=== PATIENT | female | born 1925 | race Caucasian/White ===

== ENCOUNTER 2017-02-20 13:21 | Inpatient (IN) | payer BC, MEDICARE ==
[~2017-02-20] VITALS: Ht 162.6 cm; Wt 73.8 kg
[~2017-02-20 13:21] MED LIST: /AMLO25TA PO; /QUET25TA PO; /WARF25TA OR; /WARF5TA OR; ACTI300C PO; ADV250INH INH; ALLO100T OR; AMLO5TAB PO; ANUS2.5C2 TOP; ATEN50TA2 OR; BENI20TA11 OR; CEPH2CAP PO; COZA50TA18 OR; FERR324T5 OR; FURO20TA2 OR; KENOLOG TOP; LASI20TA PO; LEVO PO; LEVO100T4 PO; LEVO88TA3 PO; LORA0.5T PO; LORA1TAB PO; MIRA3350 PO; PAIN325T OR; PERC5TAB8 OR; POLY IRON PO; SERO1TAB3 PO; SILV40CR TOP; TENO1TAB4 PO; TRAM50TA2 PO; TYLE325T5 PO; TYLENOL #3 OR; URSO300C2 PO; URSO300C3 PO; VITA500T3 PO; VITAD1000T PO; XARE15TA PO; [UNRECOGNIZED DRUG - OTHER]; [UNRECOGNIZED DRUG - OTHER] PO
[2017-02-20] MEDS ORDERED: SYMB16INH INH (13:38)
[2017-02-20] MEDS ORDERED: DRIS50002 PO (13:38)
[2017-02-20] MEDS ORDERED: CLAR5TAB PO (13:38)
[2017-02-20] MEDS ORDERED: XARE15TA PO (13:38)
[2017-02-20] MEDS ORDERED: ALPRAZolam 0.25 MG TAB PO ONE (14:15)
--- NOTE | 2017-02-20 14:49 | REP ---
Chest, semi upright AP and lateral views: Comparisons are 02/05/2017, 03/25/2012, and 12/13/2010. There is chronic cardiomegaly. There is diffuse interstitial coarsening, increased from all prior studies, compatible with pulmonary vascular engorgement. There are no pleural effusions. There is an old fracture of the surgical neck of the left humerus. Impression: Pulmonary vascular engorgement, acute. Chronic cardiomegaly. Signed by Kwabena Smith MD 02/20/2017 02:39 P
[2017-02-20 14:51] LABS: BASO # 0.1 K/mm3 (0.0-0.2); BASO % 0.9 % (0.0-1.0); EOS # 0.2 K/mm3 (0.0-0.50); EOS % 1.9 % (0.0-3.0); LARGE UNSTAINED CELL # 0.1 K/mm3 (0.0-0.4); LARGE UNSTAINED CELL % 1.6 % (0.0-4.0); LYMPH # 1.4 K/mm3 (1.5-4.5); LYMPH % 15.4 % (24.0-44.0); MEAN CORPUSCULAR HEMOGLOBIN 21.8 pg (27.0-33.0); MEAN CORPUSCULAR HGB CONC 27.2 g/dl (32.0-36.5); MEAN CORPUSCULAR VOLUME 80.1 fl (80.0-96.0); MONO # 0.6 K/mm3 (0.0-0.8); MONO % 7.7 % (0.0-5.0); NEUTROPHILS # 5.8 K/mm3 (1.8-7.7); NEUTROPHILS % 72.4 % (36.0-66.0); PLATELET COUNT, AUTOMATED 238 k/mm3 (150-450)
[2017-02-20 15:00] LABS: ADD MORPHOLOGY? YES
[2017-02-20 15:13] LABS: ANION GAP 10 MEQ/L (8-16); BLOOD UREA NITROGEN 37 MG/DL (7-18); CALCIUM LEVEL 9.7 MG/DL (8.8-10.2); CARBON DIOXIDE LEVEL 20 MEQ/L (21-32); CHLORIDE LEVEL 110 MEQ/L (98-107); CREATININE FOR GFR 1.45 MG/DL (0.55-1.02); GLOMERULAR FILTRATION RATE 36.2 (>32); GLUCOSE, FASTING 106 MG/DL (83-110); POTASSIUM SERUM 4.3 MEQ/L (3.5-5.1); SODIUM LEVEL 140 MEQ/L (136-145)
[2017-02-20 15:33] LABS: ANISOCYTOSIS 2+; HYPOCHROMASIA 2+; POLYCHROMASIA 1+
[2017-02-20 15:34] LABS: MICROCYTOSIS 1+
[2017-02-20] MEDS ORDERED: PANTOPRAZOLE 40MG INJ (PROTONIX) (C9113) IV ONE (16:00)
[2017-02-20] MEDS: PANTOPRAZOLE SODIUM 40 MG in D5W MINI-BAG PLUS 50 ML IV SCH ×5 (16:19→22:34)
[2017-02-20] MEDS ORDERED: NS 1,000 ML IV SCH (16:36)
[2017-02-20] MEDS ORDERED: ONDANSETRON 4MG/2ML VIAL (J2405) IV PRN (16:45)
[2017-02-20 17:02] LABS: INR 2.48
[2017-02-20] MEDS ORDERED: DESL5TAB11 SL (17:02)
[2017-02-20] MEDS ORDERED: VITA100066 PO (17:02)
[2017-02-20] MEDS ORDERED: FURO40TA2 PO (17:02)
[2017-02-20] MEDS ORDERED: GASTROGRAFIN SOLUTION 30ML (Q9963) PO ONE ×2 (17:05→17:35)
[2017-02-20] MEDS ORDERED: AMLO5TAB2 PO (17:09)
[2017-02-20] MEDS ORDERED: diphenhydrAMINE 25 MG CAP PO ONE (20:30)
[2017-02-20] MEDS ORDERED: ACETAMINOPHEN TAB 650MG DOSE (2X325MG) PO ONE (20:30)
[2017-02-20] MEDS ORDERED: FUROSEMIDE 20 MG/2 ML VIAL (J1940) IV ONE (20:30)
[2017-02-20] MEDS: SYMBICORT 160/4.5MCG INHALER 6GM INH SCH (21:00)
--- NOTE | 2017-02-20 21:00 | REPUSA ---
CLINICAL HISTORY: GI bleed, rule out colonic mass TECHNIQUE: CT of the abdomen and pelvis was performed without intravenous contrast by obtaining serge guous CT axial slices from level of the heart to the proximal femoral diaphyses. Multiplanar reformat s were obtained in the coronal and sagittal projections. COMPARISON: None FINDINGS : LOWER CHEST: The lung bases demonstrate small bilateral effusions with subpleural atelectasis. No ple ural or pericardial effusion is seen. LIVER: The liver is normal in size and contour. BILIARY SYSTEM: No intrahepatic biliary ductal dilatation is seen. The common duct is normal in calib er. Gallbladder is physiologically distended with calcified stones, without wall thickening or perich olecystic stranding. No calcified biliary calculi are identified. PANCREAS: The pancreas is normal in size, contour and density. No suspicious cystic lesion or ductal dilatation. SPLEEN: Normal in size with no suspicious cystic lesion. ADRENALS: The adrenal glands are unremarkable. KIDNEYS/URETERS: Bilateral renal atrophy with cortical scarring. No stones or hydroureteronephrosis. URINARY BLADDER: The urinary bladder is unremarkable without calcified stone, wall thickening or dive rticula seen. UTERUS/ADNEXA: Absent. AORTA AND ILIAC ARTERIES: No aneurysmal dilatation of the aorta or iliac arteries is seen. LYMPH NODES: No enlarged adenopathy. GASTROINTESTINAL: Small hiatal hernia is noted with soft tissue thickening at the GE junction on axia l axial images 27-29. Scattered colonic diverticula noted without peridiverticular stranding. Remaini ng stomach, duodenum, and bowel normal in caliber. PERITONEUM/RETROPERITONEUM: No ascites or suspicious fluid collection, extraluminal air, or suspiciou s mass. ABDOMINAL/PELVIC WALL: No hernia is identified. OSSEOUS STRUCTURES/SOFT TISSUES: No suspicious osseous lesion, acute fracture, or soft tissue abnorma lity. Multilevel mild endplate degenerative sclerotic changes of the thoracic and L-spine. IMPRESSION : 1. Small hiatal hernia with soft tissue thickening at the GE junction. Appearance is nonspecific as t his may represent benign mucosal fold however follow-up endoscopy is recommended to exclude neoplasm. Stool filled rectal dilatation noted without evidence of proximal obstruction or stercoral colitis. 2. Cholelithiasis without evidence of acute cholecystitis. 3. Small bilateral effusions.
[2017-02-20] MEDS ORDERED: PHYTONADIONE 5 MG TAB PO ONE (21:15)
[2017-02-20] MEDS ORDERED: DEXTROSE 50% 50 ML SYRINGE IV PRN (21:30)
[2017-02-20] MEDS ORDERED: GLUCOSE 4 GM CHEW TABLET PO PRN (21:30)
[2017-02-20] MEDS ORDERED: GLUCAGON FOR INJ 1 MG VIAL (J1610) SC PRN (21:30)
--- NOTE | 2017-02-20 23:46 | HPE ---
DATE OF ADMISSION: 02/20/2017 PRIMARY CARE PHYSICIAN: GUIDO Amaro INPATIENT HOSPITALIST ATTENDING: Nilda Li MD CHIEF COMPLAINT: Black tarry stools, shortness of breath. HISTORY OF PRESENTING ILLNESS: This is an 89-year-old female with history of hypothyroidism, nerve decompression surgery left foot and leg, left knee arthroplasty, left knee replacement, hypertension, anxiety, atrial fibrillation on chronic Eliquis, asthma, stress test 09/01/2010 ejection fraction (EF) of 50-60%, follows with Dr. Collins, cardiac catheterization 09/15/2010 no coronary artery disease (CAD), left ventricular fraction is 65%, cataract extraction 1996 and 2003, hip fracture and surgery 1956, shoulder fracture, no surgery, April 2007, knee replacement 2010, presents to emergency room with 3 day history of black tarry stools with worsening shortness of breath for the past 4-5 days, especially with exertion. Patient's caregiver noted that patient has been increasingly short of breath without chest pain, pressure or tightness, palpitations, lightheadedness, near syncope, lower extremity weakness, no falls. Caregiver called her primary care physician who advised her to come in tomorrow. Patient complained of some dizziness and lightheadedness today and decided to come to the emergency room (ER) for further evaluation. She otherwise denies any fever, chills, cough, nausea, vomiting, diarrhea. She complains of black tarry stools without abdominal pain. Prior history of gastrointestinal (GI) bleed in the past, was seen previously by Dr. Casey, general surgeon, no interventions performed at that time in 2013. Patient denies any nonsteroidal anti-inflammatory drug (NSAID) use. Denies any ibuprofen or Naprosyn in the past. PAST MEDICAL HISTORY: 1. Atrial fibrillation. 2. Hypertension. 3. Anxiety. 4. Osteoarthritis. 5. Left knee replacement. 6. Nerve decompression surgery of the foot and ankle on the left leg. 7. Hypothyroidism. 8. Asthma. 9. Chronic kidney disease stage III, baseline creatinine 1.14. FAMILY HISTORY: Noncontributory due to age. Cardiac catheterization 2009, no coronary artery disease (CAD), normal left ventricular ejection fraction (LVEF) of 65%, follows with Dr. Collins. ALLERGIES: SULFA, PENICILLIN, NITROFURANTOIN, LEXAPRO, PAXIL, AMOXICILLIN. SURGICAL HISTORY: 1. Cataract extraction - April 1997. 2. Cataract extraction - September 2004. 3. Hip fracture with replacement - October 1957. 4. Shoulder fracture, no surgery - April 2007. 5. Knee replacement - November 2010. 6. Cardiac catheterization - August 2010. 7. Lower left molar removed - September 2016. SOCIAL HISTORY: Never , no children. Has a niece in town. Former smoker, quit smoking over 10 years ago. Occasional drink, once every month. Lives at [facility] as of 2014. No recreational drug use. Single. High school graduate. Retired. REVIEW OF SYSTEMS: As per history of present illness (HPI). 12-point system otherwise negative. PHYSICAL EXAMINATION: Temperature 98, pulse 76, respiratory rate 16, blood pressure 171/81, 94% on 2 liters nasal cannula. Generally, patient is awake, alert, oriented to person, time, and place, answering questions appropriately. She has a slight pallor. No icterus. No jaundice. Dry mucous membranes. Poor dentition, missing teeth. No jugular venous distention, thyromegaly, cervical lymphadenopathy. Lungs are clear to auscultation. No wheezing, rales, or rhonchi. Heart S1, S2, regular rate and rhythm. Abdomen soft, nontender, nondistended. Positive bowel sounds four quadrants. No hepatosplenomegaly. Extremities no cyanosis or clubbing. White count 8, hemoglobin 5.9, hematocrit 21, platelet count 238. Sodium 140, potassium 4.3, chloride 110, bicarbonate 20, BUN 37, creatinine 1.45, glucose 106, previous creatinine 1.14. Cardiac markers: Troponin less than 0.02, CK-MB 4.8, relative index 8.42, total CK 57. IMAGING STUDIES: Chest xray: Chronic cardiomegaly, pulmonary vascular engorgement. CT abdomen and pelvis: Small bilateral effusions with subpleural atelectasis, small hiatal hernia with soft tissue thickening at the gastroesophageal (GE) junction, scattered colonic diverticula without stranding. No ascites or suspicious fluid collection. Cholelithiasis without evidence of acute cholecystitis. Stool filled rectal dilation noted without evidence of proximal obstruction. No stercoral colitis. Followup endoscopy to exclude neoplasm for the soft tissue thickening at the GE junction. ASSESSMENT AND PLAN: This is an 89-year-old female with history of atrial fibrillation on chronic anticoagulation, hypothyroidism, hypertension, asthma, follows with Dr. Collins, previous stress test 2009 shows ejection fraction (EF) 50-60%, cardiac catheterization ejection fraction (EF) of 65%, cataract extractions, on chronic Xarelto, chronic kidney disease stage III, presents to the emergency room with symptomatic anemia and black tarry stools, prior history of bleeding with no previous intervention in 2013. Patient will be admitted as an inpatient for 2 midnights, assigned to hospitalist, Dr. Nilda Li, for the following issues: 1. Black tarry stools/gastrointestinal (GI) bleed with symptomatic anemia. Patient will be kept nothing by mouth. Dr. Piotr Sun has been consulted. Patient is still making decision whether to proceed with colonoscopy. She is currently medically stable with adequate blood pressure, therefore will transfuse 4 units of red blood cells for hemoglobin of 5 due to severe symptomatic anemia. Lasix IV. Monitor for electrolyte abnormalities and worsening creatinine. 2. Symptomatic anemia. Transfuse and check hemoglobin and hematocrit after transfusion. Lasix to prevent fluid overload. Check hemoglobin and hematocrit every 6 hours. Protonix IV for now and Carafate for now. Gastrointestinal (GI) consult, Dr. Sun, has been informed. Patient to make a decision whether to proceed with colonoscopy. 3. Acute on chronic renal failure. Baseline creatinine is 1.4 to 1.2. Currently at 1.45. Avoid nephrotoxins. Monitor breathing status once patient has received red blood cell transfusion. Lasix times two doses during blood transfusion. 4. Hypertension, uncontrolled. Resume home medications, atenolol and Norvasc. 5. Hypothyroidism. Continue with Synthroid. 6. History of atrial fibrillation, on chronic Xarelto. Will hold Xarelto in light of active gastrointestinal (GI) bleed and symptomatic anemia. Continue rate control medication with atenolol. 7. Vitamin D deficiency. Hold off on supplementation until patient resumes oral intake. 8. Former smoker. As needed, resume patient's Symbicort. 9. Deep venous thrombosis (DVT) prophylaxis with compression stockings. MTDD
[2017-02-21] MEDS: QUEtiapine FUMARATE 25 MG TAB PO SCH ×4 (00:17→22:24)
[2017-02-21] MEDS: amLODIPine 5 MG TAB PO SCH ×3 (00:17→22:25)
[2017-02-21] MEDS: URSODIOL 300 MG CAP PO SCH ×3 (01:08→22:25)
[2017-02-21] MEDS: PANTOPRAZOLE SODIUM 40 MG in D5W MINI-BAG PLUS 50 ML IV SCH ×5 (03:36→22:51)
[2017-02-21 04:27] VITALS: BP 153/69
[2017-02-21 05:41] LABS: INR 1.63
[2017-02-21 05:57] LABS: ANION GAP 9 MEQ/L (8-16); BLOOD UREA NITROGEN 34 MG/DL (7-18); CALCIUM LEVEL 9.2 MG/DL (8.8-10.2); CARBON DIOXIDE LEVEL 19 MEQ/L (21-32); CHLORIDE LEVEL 109 MEQ/L (98-107); CREATININE FOR GFR 1.44 MG/DL (0.55-1.02); GLOMERULAR FILTRATION RATE 36.5 (>32); GLUCOSE, FASTING 83 MG/DL (83-110); POTASSIUM SERUM 3.8 MEQ/L (3.5-5.1); SODIUM LEVEL 137 MEQ/L (136-145)
[2017-02-21] MEDS: ACETAMINOPHEN TAB 650MG DOSE (2X325MG) PO PRN ×2 (06:08→17:12)
[2017-02-21] MEDS: LEVOTHYROXINE 0.088 MG TAB (88 MCG) PO SCH (06:08)
[2017-02-21 07:35] VITALS: BP 136/76
--- NOTE | 2017-02-21 08:45 | REP ---
Chest AP and lateral views, patient sitting: Comparisons are 02/20/2017, 02/05/2017, 03/23/2012 and 12/13/2010. There is chronic cardiomegaly, unchanged. There is diffuse interstitial coarsening similar to 02/20/2017 but not present prior to that compatible with pulmonary vascular congestion. No iker interstitial infiltrates are identified. However, on the lateral view there are small bilateral pleural effusions in the posterior sulci. These appear to be new from 02/20/2017. There is an old fracture in the surgical neck of the left humerus. There is osteoarthritis of the right shoulder. There is marked kyphosis. There is wedge-shaped compression deformity of a mid thoracic vertebral body, unchanged from 02/05 2017. There is no lateral view on 03/25/2012. This was not present 12/13/2010. Signed by Kwabena Smith MD 02/21/2017 08:36 A
[2017-02-21] MEDS: SYMBICORT 160/4.5MCG INHALER 6GM INH SCH ×2 (09:08→21:29)
[2017-02-21] MEDS: VITAMIN D 1,000 INTERNATIONAL UNITS TABLET PO SCH (09:25)
[2017-02-21] MEDS: ATENOLOL 50 MG TAB PO SCH (09:25)
[2017-02-21] MEDS ORDERED: FUROSEMIDE 40 MG/4 ML VIAL (J1940) IV ONE (11:00)
[2017-02-21 12:00] VITALS: BP 152/71
[2017-02-21 16:00] VITALS: BP 147/71
--- NOTE | 2017-02-21 16:47 | IPNPDOC ---
Subjective Date Seen The patient was seen on 02/21/17. Subjective Chief Complaint/HPI The patient is a 89-year-old female admitted with a reason for visit of Gi Bleed. Events since last encounter First encounter. Patient is anxious about the possibilities of EGD and the prognosis of the findings. Patient denies chest pain, syncope, and palpitations. Patient states that she has felt lightheaded and dizzy for 5 days. General: Reports: Fatigue, Normal Appetite, Denies: Chills, Malaise, Night Sweats Eyes: Denies: Vision change ENT: Denies: Head Aches Skin: Reports: Bruising (Bilateral upper extremities), Denies: Rash Pulmonary: Denies: Cough, Dyspnea Cardiovascular: Reports: Edema (Bilateral lower extremities), Denies: Chest Pain, Palpitations Gastrointestinal: Reports: Melena (3 days), Denies: Abdominal Pain, Constipation, Diarrhea, Nausea, Vomiting Genitourinary: Denies: Hematuria Musculoskeletal: Reports: Arm Pain (IV sites) Neurological: Denies: Weakness Psych: Reports: Anxiety Objective Physical Examination General Exam: Positive: Alert, Moderate Distress Eye Exam: Positive: EOMI ENT Exam: Positive: Atraumatic Neck Exam: Positive: +2 carotid pulse wo bruit Chest Exam: Positive: Clear to auscultation, Normal air movement Heart Exam: Positive: Rate Normal, Negative: Gallops, Murmurs, Rubs Abdomen Exam: Positive: Mass (Suprapubic), Normal bowel sounds, Soft Extremity Exam: Positive: Tenderness, Negative: Edema Skin Exam: Negative: Rash Neuro Exam: Positive: Normal Tone Psych Exam: Positive: Anxiety Assessment /Plan Assessment 89 year old female who presents with an upper GI bleed Problems (1) Upper GI bleed Status: Acute Response to Treatment: Improving Discussed With: Patient Problem Specific Plan: Consult Specialist Problem Text: Dr. Sun has been consulted. CT scan showed a small hiatal hernia with gastroesophageal thickening. EGD is recommended to rule out neoplasm or ongoing bleed. Hemoglobin was 5.7 on admission and improved to 8.4 after 2 transfusions. (2) Anemia Status: Acute Response to Treatment: Improving Discussed With: Patient Problem Text: Most likely due to upper gastrointestinal bleed due to 3 day history of black tarry stools and lightheadedness. Will monitor hemoglobin and hematocrit to determine the need for more transfusions. (3) Dyspnea Status: Acute Response to Treatment: Improving Problem Text: Likely due to fluid overload. A small amount of pleural fluid was seen on chest xray. Will give one dose of lasix. (4) Chronic kidney disease, stage 3 Status: Chronic Response to Treatment: Stable (5) HTN (hypertension) Status: Chronic Response to Treatment: Improving Problem Text: Continue home dose of Norvasc (6) Chronic atrial fibrillation Status: Chronic Response to Treatment: Stable (7) Hypothyroidism Status: Chronic Response to Treatment: Stable Problem Text: Continue on home dose of levothyroxine (8) Anxiety Status: Acute Problem Text: Patient was given one dose of Xanax (9) Primary biliary cirrhosis Status: Chronic Problem Text: History obtained from past medical record. Continue on home dose of ursodiol. (10) Asthma Status: Chronic Response to Treatment: Stable Problem Text: Continue home dosage of Symbacort. Plan/VTE VTE Prophylaxis Ordered?: No VTE Exclusion Pharmacological: Active Bleeding Plan Patient seen and examined at this time she appears visibly anxious she is oriented to place but does not believe that she is bleeding and she would like to go home risk and benefits of staying in the hospital obtaining an EGD monitoring her for stabilization versus the risks of continued bleeding and potential were outlined at length we did discuss signing out AMA specifically the patient is undecided if she wishes to proceed with an EGD would like speak with Dr. Sun before making any final decision. VS, I&O, 24H, Fishbone Vital Signs/I&O Vital Signs Date Time Temp Pulse Resp B/P Pulse Ox O2 Delivery O2 Flow Rate FiO2 02/21/17 09:25 84 136/76 02/21/17 08:00 Room Air 02/21/17 07:35 98.2 22 97 2.0 I&O- Last 24 Hours up to 6 AM 02/21/17 06:00 Intake Total 0 ml Output Total 875 ml Balance -875 ml Laboratory Data 24H LABS Laboratory Tests 2 02/20/17 14:31: Anion Gap 10, Anisocytosis 2+, White Blood Count 8.0, Red Blood Count 2.71L, Hemoglobin 5.9*L, Hematocrit 21.7L, Mean Corpuscular Volume 80.1, Mean Corpuscular Hemoglobin 21.8L, Mean Corpuscular Hemoglobin Concent 27.2L, Red Cell Distribution Width 16.0H, Platelet Count 238, Neutrophils (%) (Auto) 72.4H , Lymphocytes (%) (Auto) 15.4L, Monocytes (%) (Auto) 7.7H, Eosinophils (%) (Auto ) 1.9, Basophils (%) (Auto) 0.9, Neutrophils # (Auto) 5.8, Lymphocytes # (Auto) 1.4L, Monocytes # (Auto) 0.6, Eosinophils # (Auto) 0.2, Basophils # (Auto) 0.1, Blood Urea Nitrogen 37H, Creatinine 1.45H, Sodium Level 140, Potassium Level 4.3 , Chloride Level 110H, Carbon Dioxide Level 20L, Calcium Level 9.7, Total Creatine Kinase 57, Creatine Kinase MB 4.8H, Creatine Kinase MB Relative Index 8.42H, Glomerular Filtration Rate 36.2, Hypochromasia 2+, Large Unclassified Cells # 0.1, Large Unclassified Cells % 1.6, Microcytosis 1+, Platelet Estimate NORMAL, Polychromasia 1+, Thyroid Stimulating Hormone (TSH) 3.680, Troponin I < 0.02 02/20/17 15:40: Activated Partial Thromboplast Time 39.0H, Prothromb Time International Ratio 2.48, Prothrombin Time 26.9H 02/20/17 20:42: B-Type Natriuretic Peptide 651H 02/20/17 20:49: Total Creatine Kinase 59, Creatine Kinase MB 4.2H, Creatine Kinase MB Relative Index 7.11H, Troponin I < 0.02 02/21/17 05:15: Anion Gap 9, Blood Urea Nitrogen 34H, Creatinine 1.44H, Sodium Level 137, Potassium Level 3.8, Chloride Level 109H, Carbon Dioxide Level 19L, Calcium Level 9.2, Total Creatine Kinase 108#, Creatine Kinase MB 4.3H, Creatine Kinase MB Relative Index 3.98, Glomerular Filtration Rate 36.5, Prothromb Time International Ratio 1.63, Prothrombin Time 19.4H, Troponin I < 0.02 CBC/BMP Laboratory Tests 02/20/17 14:31 Calcium Level 9.7, Total Creatine Kinase 57, Red Blood Count 2.71 L, Mean Corpuscular Volume 80.1, Mean Corpuscular Hemoglobin 21.8 L, Mean Corpuscular Hemoglobin Concent 27.2 L, Red Cell Distribution Width 16.0 H, Neutrophils (%) ( Auto) 72.4 H, Lymphocytes (%) (Auto) 15.4 L, Monocytes (%) (Auto) 7.7 H, Eosinophils (%) (Auto) 1.9, Basophils (%) (Auto) 0.9, Neutrophils # (Auto) 5.8, Lymphocytes # (Auto) 1.4 L, Monocytes # (Auto) 0.6, Eosinophils # (Auto) 0.2, Basophils # (Auto) 0.1 02/20/17 20:49 02/21/17 02:56 02/21/17 05:15 Calcium Level 9.2, Total Creatine Kinase 108 # GME ATTESTATION GME ATTESTATION My preceptor for this patient encounter was physically present in the building during the encounter and was fully available. As needed, all aspects of the patient interview, examination, medical decision making process, and medical care plan development were reviewed and approved by the preceptor. Preceptor is aware and concurs with the plan as stated in the body of this note and will attest to such by his/her cosignature. CHANO ARITA DO Feb 21, 2017 11:03 COOPER ANG MD Feb 23, 2017 13:18
--- NOTE | 2017-02-21 18:25 | ECGEPIP ---
Stationary ECG Study [facility] - ED Test Date: 2017-02-20 Pat Name: SHILPA TINSLEY Department: Room: - Gender: F Laundry Assistant: kit : [id number] Requested By: Thee Vasquez Order Number: [id number] Reading MD: Thee Mcdonald Measurements Intervals [place] Rate: 70 P: IA: 0 QRS: -14 QRSD: 164 T: 133 QT: 457 QTc: 493 Interpretive Statements ATRIAL FIBRILLATION WITH ABERRANT CONDUCTION OR VENTRICULAR PREMATURE COMPLEXES LEFT BUNDLE BRANCH BLOCK NO PRIORS Electronically Signed On 02-21-2017 18:25:30 EDT by Thee Mcdonald
[2017-02-21 20:52] VITALS: BP 139/70
[2017-02-21] MEDS ORDERED: NORTRIPTYLINE 10 MG CAP PO ONE (21:00)
--- NOTE | 2017-02-21 22:42 | ECHO ---
DATE OF PROCEDURE: 02/21/2017 REFERRING PHYSICIAN: Kim Chang MD INDICATION: Dyspnea. HEIGHT: 163 cm WEIGHT: 77 kg 2D MEASUREMENTS: Aortic root: 2.9 cm Left atrium: 5.2 cm Ventricular septum: 1.20 cm Posterior wall: 1.17 cm Left ventricle diastole: 5.2 cm LVOT: 1.7 cm Inferior vena cava: 2.1 cm DOPPLER MEASUREMENTS: Aortic valve velocity: 174 cm/s LVOT velocity: 79.9 cm/s LVOT VTI: 18.0 cm Mild mitral regurgitation. No mitral valve stenosis. Moderate tricuspid regurgitation. Estimated right ventricle systolic pressure estimated to be 61 mmHg assuming a right atrial pressure of 10 mmHg. Mild pulmonic regurgitation. MITRAL ANNULAR TISSUE DOPPLER: E prime septal: 7.0 cm/s E prime lateral: 8.9 cm/s DESCRIPTION: Rhythm was irregularly irregular suggestive of atrial fibrillation. This was a moderately technically difficult echocardiogram. No pericardial effusion. This is a 2D, M-mode, color flow Doppler and pulse wave Doppler examination that included mitral annular tissue Doppler. CONCLUSIONS: 1. Suggestive of severe elevation of estimated right ventricle systolic pressure (61 mmHg). Normal right ventricle size and systolic function. Mild right ventricle hypertrophy by visual assessment. At least mild right atrial dilation by visual assessment. Inferior vena cava plethora. Suggestive of central venous pressure of at least 10 mmHg. 2. Paradoxical septal motion. Normal left ventricle (LV) wall motion and wall thickening elsewhere. Normal overall LV systolic function. Left ventricular ejection fraction (LVEF) of 60% by visual estimate. Unable to assess left ventricle (LV) diastolic function in the setting of atrial fibrillation. 3. Severe left atrial dilatation. 4. Moderate aortic valve sclerosis of a three-cuspid aortic valve. No aortic stenosis or regurgitation. 5. Moderate mitral annular calcification. Mild mitral regurgitation. No mitral stenosis.
[2017-02-21 23:59] VITALS: BP 140/70
[2017-02-22] MEDS: PANTOPRAZOLE SODIUM 40 MG in D5W MINI-BAG PLUS 50 ML IV SCH ×4 (03:02→18:45)
[2017-02-22 04:45] VITALS: BP 169/74
[2017-02-22 05:28] LABS: CALCIUM LEVEL 9.2 MG/DL (8.8-10.2); CREATININE FOR GFR 1.7 MG/DL (0.55-1.02); GLOMERULAR FILTRATION RATE 30.1 (>32); INR 1.35; POTASSIUM SERUM 3.9 MEQ/L (3.5-5.1)
[2017-02-22] MEDS: LEVOTHYROXINE 0.088 MG TAB (88 MCG) PO SCH (06:00)
[2017-02-22 07:20] VITALS: BP 163/72
[2017-02-22] MEDS: SYMBICORT 160/4.5MCG INHALER 6GM INH SCH ×2 (07:25→21:00)
[2017-02-22] MEDS ORDERED: FUROSEMIDE 40 MG/4 ML VIAL (J1940) IV ONE (08:30)
[2017-02-22] MEDS: ATENOLOL 50 MG TAB PO SCH (09:00)
[2017-02-22] MEDS: amLODIPine 5 MG TAB PO SCH ×2 (09:00→22:40)
[2017-02-22] MEDS: URSODIOL 300 MG CAP PO SCH ×2 (09:00→22:39)
[2017-02-22] MEDS: QUEtiapine FUMARATE 25 MG TAB PO SCH ×3 (09:00→22:40)
[2017-02-22] MEDS: VITAMIN D 1,000 INTERNATIONAL UNITS TABLET PO SCH (09:00)
[2017-02-22] MEDS ORDERED: LORazepam 2 MG/ML VIAL (J2060) IV PRN (11:30)
[2017-02-22] MEDS ORDERED: LORazepam 2 MG/ML VIAL (J2060) As Ordered ONE (11:48)
[2017-02-22] MEDS: LORazepam 2 MG/ML VIAL (J2060) IM PRN ×2 (11:54→21:27)
--- NOTE | 2017-02-22 11:58 | IPNPDOC ---
Subjective Date Seen The patient was seen on 02/22/17. Subjective Chief Complaint/HPI The patient is a 89-year-old female admitted with a reason for visit of Gi Bleed. Events since last encounter Patient has developed altered mental status since last night. She had a bowel movement on the floor this morning and is combative with the nurses trying to clean her. She refuses to be examined. She has no complaints. Patient is refusing to take her medications. General: Reports: Normal Appetite, Denies: Chills, Fatigue, Night Sweats Eyes: Denies: Vision change ENT: Denies: Epistaxis, Head Aches Skin: Reports: Bruising, Denies: Rash Pulmonary: Denies: Cough, Dyspnea Cardiovascular: Denies: Chest Pain, Edema, Palpitations Gastrointestinal: Denies: Abdominal Pain, Constipation, Diarrhea, Melena, Nausea, Vomiting Genitourinary: Denies: Dysuria, Hematuria Musculoskeletal: Denies: Arm Pain Neurological: Reports: Confusion (Patient is not oriented to person, place, or date. ), Denies: Numbness, Weakness Psych: Reports: Memory Issues, Other Psych (Patient is suspicous of the medical staff calling them "actors"), Denies: Thoughts of Self Harm Objective Physical Examination General Exam: Positive: Alert, Moderate Distress, Negative: Cooperative Eye Exam: Positive: EOMI Extremity Exam: Positive: Tenderness Neuro Exam: Positive: Normal Tone Psych Exam: Positive: Anxiety, Negative: Oriented x 3 Other physical findings Physical examination limited due to patient refusal. Assessment /Plan Assessment 89 year old female with a suspected GI bleed and altered mental status. Problems (1) Upper GI bleed Status: Acute Response to Treatment: Stable Discussed With: Patient Problem Specific Plan: Consult Specialist Problem Text: GI has been consulted, awaiting their recommendations. Stool occult blood is positive. CT scan showed a small hiatal hernia with gastroesophageal thickening. EGD is recommended to rule out neoplasm or ongoing bleed. Hemoglobin was 5.7 on admission and improved to 8.4 after 2 transfusions. Today her hemoglobin is 8.2. (2) Altered mental state Onset Date: ~ 02/22/2017 Status: Acute Response to Treatment: Progressing Discussed With: Nurse, Patient Problem Specific Plan: Monitor Clinically Problem Text: Will check CBC, CMP, UA and culture, TSH, B12, LFTs, and check for syphilis. Will also send for a CT scan of the head. in order to rule out medical causes of her altered mental status. Patient refused scheduled dose of Seroquel this morning. (3) KODI (acute kidney injury) Status: Acute Problem Text: Worsening renal function, acute on chronic kidney injury. Will give one dose of lasix and continue to follow renal function tomorrow. (4) Anemia Status: Acute Response to Treatment: Controlled Discussed With: Patient Problem Text: Most likely due to upper gastrointestinal bleed due to recent history of black tarry stools and lightheadedness. Will monitor hemoglobin and hematocrit to determine the need for more transfusions. Since the hemoglobin is about the same as yesterday, I suspect a chronic slow bleed in the gastrointestinal system. (5) Dyspnea Status: Acute Response to Treatment: Stable Discussed With: Patient Problem Text: Likely due to fluid overload. (6) Chronic kidney disease, stage 3 Status: Chronic Response to Treatment: Stable (7) HTN (hypertension) Status: Chronic Response to Treatment: Stable Problem Text: Continue home dose of Norvasc (8) Chronic atrial fibrillation Status: Chronic Response to Treatment: Stable (9) Hypothyroidism Status: Chronic Response to Treatment: Stable Problem Text: Continue on home dose of levothyroxine (10) Anxiety Status: Acute Response to Treatment: Improving Problem Text: Patient denies being anxious, but she does exhibit symptoms more consistent with suspicion, delirium, combativeness, and overall will not cooperate with physical exam and refuses to answer any questions. (11) Primary biliary cirrhosis Status: Chronic Problem Text: History obtained from past medical record. Continue on home dose of ursodiol. (12) Asthma Status: Chronic Response to Treatment: Stable Problem Text: Continue home dosage of Symbicort. Plan/VTE VTE Prophylaxis Ordered?: No VTE Exclusion Pharmacological: Active Bleeding VS, I&O, 24H, Fishbone Vital Signs/I&O Vital Signs Date Time Temp Pulse Resp B/P Pulse Ox O2 Delivery O2 Flow Rate FiO2 02/22/17 07:20 96.0 75 20 163/72 98 Room Air 02/21/17 07:35 2.0 I&O- Last 24 Hours up to 6 AM 02/22/17 06:00 Intake Total 365 ml Output Total 2000 ml Balance -1635 ml Laboratory Data 24H LABS Laboratory Tests 2 02/21/17 11:34: Bedside Glucose (Misc Panel) 100 02/21/17 17:16: Bedside Glucose (Misc Panel) 109 02/22/17 00:07: Bedside Glucose (Misc Panel) 102 02/22/17 04:51: Anion Gap 12, B-Type Natriuretic Peptide 641H, Blood Urea Nitrogen 33H, Creatinine 1.70H, Sodium Level 139, Potassium Level 3.9, Chloride Level 108H, Carbon Dioxide Level 19L, Calcium Level 9.2, Glomerular Filtration Rate 30.1L, Prothromb Time International Ratio 1.35, Prothrombin Time 16.8H CBC/BMP Laboratory Tests 02/21/17 11:54 02/21/17 17:41 02/21/17 23:54 02/22/17 04:51 Calcium Level 9.2 Microbiology Microbiology 02/22/17 Stool Occult Blood (SADI) - Final, Complete CHANO ARITA DO Feb 22, 2017 11:21
[2017-02-22 14:02] LABS: ALBUMIN/GLOBULIN RATIO 0.88 (1.00-1.93); BILIRUBIN,DIRECT 0.3 MG/DL (0.0-0.2); BILIRUBIN,TOTAL 1.4 MG/DL (0.2-1.0); TOTAL PROTEIN 6.4 GM/DL (6.4-8.2)
[2017-02-22 14:19] LABS: MEAN CORPUSCULAR HEMOGLOBIN 23.9 pg (27.0-33.0); MEAN CORPUSCULAR HGB CONC 29.4 g/dl (32.0-36.5); MEAN CORPUSCULAR VOLUME 81.3 fl (80.0-96.0); RED CELL DISTRIBUTION WIDTH 16.2 % (11.5-14.5); WHITE BLOOD COUNT 11.5 K/mm3 (4.0-10.0)
[2017-02-22] MEDS ORDERED: LORazepam 2 MG/ML VIAL (J2060) IM ONE (14:30)
[2017-02-22 17:34] VITALS: BP 140/67
[2017-02-22 20:00] VITALS: BP 159/95
--- NOTE | 2017-02-22 20:43 | ECGEPIP ---
Stationary ECG Study [facility] Test Date: 2017-02-22 Pat Name: SHILPA TINSLEY Department: Room: [place] [address] Gender: F Nib Assembler: GISELA : [id number] Requested By: COOPER ANG Order Number: [id number] Reading MD: Juan Francisco Gonzalez Measurements Intervals [place] Rate: 107 P: [place]: 0 QRS: 7 QRSD: 148 T: 133 QT: 363 QTc: 486 Interpretive Statements Considerable baseline artifact Suspected underlying atrial fibrillation with slightly rapid ventricular response Left bundle branch block Isolated PVC Slightly faster rate than 02/20/17. Electronically Signed On 02-22-2017 20:43:50 EDT by Juan Francisco Gonzalez
[2017-02-22] MEDS: CIPROFLOXACIN 400 MG in APPROPRIATE DILUENT 1 EA IV SCH (22:18)
[2017-02-23] VITALS: BP_SYST 136; BP_SYST 138; BP_DIAS 105; BP_DIAS 69
[2017-02-23] MEDS: PANTOPRAZOLE SODIUM 40 MG in D5W MINI-BAG PLUS 50 ML IV SCH ×3 (00:33→09:11)
[2017-02-23 05:00] VITALS: BP 162/69
[2017-02-23] MEDS: LEVOTHYROXINE 0.088 MG TAB (88 MCG) PO SCH ×2 (05:13→13:07)
[2017-02-23 05:44] LABS: INR 1.28
[2017-02-23 05:46] LABS: CALCIUM LEVEL 9.5 MG/DL (8.8-10.2); CREATININE FOR GFR 1.67 MG/DL (0.55-1.02); GLOMERULAR FILTRATION RATE 30.8 (>32); POTASSIUM SERUM 3.6 MEQ/L (3.5-5.1)
[2017-02-23 07:08] LABS: MEAN CORPUSCULAR HEMOGLOBIN 24.8 pg (27.0-33.0); MEAN CORPUSCULAR HGB CONC 30.5 g/dl (32.0-36.5); MEAN CORPUSCULAR VOLUME 81.1 fl (80.0-96.0); RED CELL DISTRIBUTION WIDTH 16.6 % (11.5-14.5); WHITE BLOOD COUNT 7.2 K/mm3 (4.0-10.0)
[2017-02-23] MEDS: SYMBICORT 160/4.5MCG INHALER 6GM INH SCH ×2 (07:16→21:00)
[2017-02-23 07:30] VITALS: BP 154/70
[2017-02-23] MEDS: QUEtiapine FUMARATE 25 MG TAB PO SCH ×3 (09:32→20:32)
[2017-02-23 12:00] VITALS: BP 160/72
[2017-02-23] MEDS: ATENOLOL 50 MG TAB PO SCH (13:43)
[2017-02-23] MEDS: amLODIPine 5 MG TAB PO SCH ×2 (13:43→20:34)
[2017-02-23] MEDS: URSODIOL 300 MG CAP PO SCH ×2 (13:43→20:34)
[2017-02-23] MEDS: VITAMIN D 1,000 INTERNATIONAL UNITS TABLET PO SCH (13:44)
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
[2017-02-23 16:00] VITALS: BP 150/70
[2017-02-23] MEDS: CIPROFLOXACIN 400 MG in APPROPRIATE DILUENT 1 EA IV SCH (18:16)
[2017-02-23 20:00] VITALS: BP 138/64
[2017-02-23] MEDS: PANTOPRAZOLE 40MG TAB (PROTONIX) PO SCH (20:32)
[2017-02-23] MEDS ORDERED: PANTOPRAZOLE 40MG INJ (PROTONIX) (C9113) IV SCH (21:00)
[2017-02-24] VITALS: BP 109/57
[2017-02-24 04:00] VITALS: BP 109/58
[2017-02-24] MEDS: LEVOTHYROXINE 0.088 MG TAB (88 MCG) PO SCH (05:48)
[2017-02-24 06:09] LABS: INR 1.3; MEAN CORPUSCULAR HEMOGLOBIN 23.9 pg (27.0-33.0); MEAN CORPUSCULAR HGB CONC 29.2 g/dl (32.0-36.5); MEAN CORPUSCULAR VOLUME 81.6 fl (80.0-96.0); RED CELL DISTRIBUTION WIDTH 16.6 % (11.5-14.5); WHITE BLOOD COUNT 6.3 K/mm3 (4.0-10.0)
[2017-02-24 06:10] LABS: CALCIUM LEVEL 9.4 MG/DL (8.8-10.2); CREATININE FOR GFR 1.72 MG/DL (0.55-1.02); GLOMERULAR FILTRATION RATE 29.7 (>32); POTASSIUM SERUM 3.5 MEQ/L (3.5-5.1)
[2017-02-24 08:00] VITALS: BP 160/70
[2017-02-24] MEDS: SYMBICORT 160/4.5MCG INHALER 6GM INH SCH ×2 (09:00→21:00)
[2017-02-24] MEDS: QUEtiapine FUMARATE 25 MG TAB PO SCH ×3 (09:27→21:18)
[2017-02-24] MEDS: URSODIOL 300 MG CAP PO SCH ×2 (09:27→21:18)
[2017-02-24] MEDS: PANTOPRAZOLE 40MG TAB (PROTONIX) PO SCH ×2 (09:27→21:18)
[2017-02-24] MEDS: VITAMIN D 1,000 INTERNATIONAL UNITS TABLET PO SCH (09:27)
[2017-02-24] MEDS: amLODIPine 5 MG TAB PO SCH ×2 (09:28→21:18)
[2017-02-24] MEDS: ATENOLOL 50 MG TAB PO SCH (09:28)
--- NOTE | 2017-02-24 10:26 | IPN ---
DATE: 02/24/2017 SUBJECTIVE: This morning the patient tells me that she is tired. She denies any pain. She is oriented to person. She knows that she is at [facility] in [place]. She can tell me the year is 2017. She denies any other complaints at this time. She tells me that she would like to go home, but otherwise has no complaints. OBJECTIVE: VITAL SIGNS: Temperature 98.3, pulse 68, respiratory rate 18, blood pressure 109/58, oxygen saturation 92% on 2 liters. GENERAL She is a frail, elderly, female sleeping peacefully. She is quite grumpy when she is awoke, but does not appear to be in any distress. HEENT: Cranial nerves II through XII are grossly intact. She has moist mucous membranes. No elevation in central venous pressure. CARDIOVASCULAR EXAM: S1, S2 regular. RESPIRATORY EXAM: Clear. ABDOMINAL EXAM: Obese but benign. EXTREMITIES: No clubbing, cyanosis or edema. LABORATORY STUDIES: WBC 6.3, hemoglobin 8.5, hematocrit 29, platelet count 180. Chemistry panel: Sodium 144, potassium 3.5, chloride 112, bicarbonate 21, BUN 31, creatinine 1.7. The patient had multiple sets of cardiac enzymes, which are negative. She had a TSH, which at the time of her arrival was within normal limits. B12 level is pending. Ammonia level was unremarkable. Liver function tests were unremarkable. UA was quite abnormal with 3+ leukocyte esterase, too numerous to count WBC, 1+ bacteria, RPR was nonreactive. Microbiology: Urine culture returned positive for Citrobacter. IMAGING: The patient had a chest x-ray on 02/21/2017 that revealed marked kyphosis and unchanged wedge shaped compression deformity of the mid thoracic vertebral body. The patient did have a CT scan of the abdomen and pelvis on 02/20/2017 at the time of her arrival, which revealed small hiatal hernia with small tissue thickening of the GE junction. Endoscopy was recommended to exclude neoplasm. Echocardiogram on 02/21/2017 revealed severe elevation of right ventricular systolic pressure, normal RV size, systolic function. Mild right ventricular hypertrophy. Inferior vena cava plethora. Ejection fraction of 60%. Severe left atrial dilation. ASSESSMENT AND PLAN: This is an 89-year-old female admitted with gastrointestinal bleed, hospital course complicated by metabolic encephalopathy. 1. Gastrointestinal bleed, likely an upper gastrointestinal bleed possibly due to chronic anticoagulation with eliquis . The patient is chronically on anticoagulation for atrial fibrillation. This was stopped. The patient received 2 units of packed red blood cells. Since then her hemoglobin and hematocrit have remained stable, likely this is a fairly slow chronic bleed over the last couple of weeks. At this time, her hemoglobin and hematocrit are stable. She has remained stable. She has been transitioned from IV proton pump inhibitor to oral proton pump inhibitor. She declined endoscopy at the time of her arrival. Today, now that she is oriented, she once again declines any endoscopy or scopes. I made her aware of the potential risks that she could have a malignancy of the ISMAEL junction, which would be a source of bleeding. She understands this and understands the potentially consequences and still declines intervention. At this time, we will hold off on any anticoagulation and simply continue to monitor. 2. Metabolic encephalopathy. She had an abnormal UA and a positive urine culture. For the time being, she is on Ciprofloxacin, could likely be transitioned to oral in the near future, however, her metabolic encephalopathy was relatively short-lived with an abrupt onset and a quick resolution, improved with benzodiazepine therapy. The patient denies any alcohol abuse, however, I feel as though she does have quite significant anxiety. I feel that this combined with disorientation of being in the hospital resulted in a great deal of her symptoms. She does not remember the previous days where she was not acting as herself. At this time, she appears to be at baseline, she was not when she presented to the hospital, which is still somewhat concerning. I suspect that she would benefit from placement if she would allow. Given refusal of care throughout much of her stay and refusal of treatment, I feel that this is less likely. We will continue to discuss with her and her family members. It appears as though she has estranged herself from many of them. 3. Acute kidney injury. We will continue to monitor. She has been diuresed following her transfusion of blood. We are treating her for a urinary tract infection (UTI). 4. Acute blood loss anemia. Her hemoglobin and hematocrit are low. For the time being, she would likely benefit from some oral iron and close outpatient followup and potential revisitation of the need for endoscopy in the future. 5. Hypertension. She is on her home dose of Norvasc and atenolol. Her blood pressure is controlled. 6. Hypothyroidism. She is on levothyroxine. 7. Anxiety, as outlined above. The patient is requiring as needed benzodiazepine, as well as her regular home Seroquel. 8. Primary biliary cirrhosis. Continue with Ursodiol. 9. Asthma. Continue with her home inhalers. 10. Deep vein thrombosis (DVT) prophylaxis. Sequential compression device (SCD ) and TEDs. No pharmacological agents in the setting of recent bleeding. DISPOSITION: We will have the patient work with physical therapy (PT) and have her reevaluated by patient and family services (PFS) tomorrow. I have a feeling that if she is cleared, she would like to be discharged home; however, given the fact that she lives alone, she may benefit from placement. RONEL
[2017-02-24] MEDS: FUROSEMIDE 40 MG TAB PO SCH (12:23)
[2017-02-24 16:00] VITALS: BP 147/64
[2017-02-24] MEDS: ALPRAZolam 0.5 MG TAB PO PRN (16:40)
[2017-02-24] MEDS: CIPROFLOXACIN 400 MG in APPROPRIATE DILUENT 1 EA IV SCH (18:28)
[2017-02-24 19:07] VITALS: BP 141/67
[2017-02-24 22:00] VITALS: BP 114/53
[2017-02-25] MEDS: CIPROFLOXACIN 500 MG TAB PO SCH ×2 (05:34→11:34)
[2017-02-25] MEDS: LEVOTHYROXINE 0.088 MG TAB (88 MCG) PO SCH (05:34)
[2017-02-25] MEDS: SYMBICORT 160/4.5MCG INHALER 6GM INH SCH ×2 (08:57→19:55)
[2017-02-25] MEDS: VITAMIN D 1,000 INTERNATIONAL UNITS TABLET PO SCH (09:00)
[2017-02-25] MEDS: URSODIOL 300 MG CAP PO SCH ×2 (09:00→21:00)
[2017-02-25] MEDS: ATENOLOL 50 MG TAB PO SCH (09:00)
[2017-02-25] MEDS: PANTOPRAZOLE 40MG TAB (PROTONIX) PO SCH ×2 (09:00→21:00)
[2017-02-25] MEDS: QUEtiapine FUMARATE 25 MG TAB PO SCH ×3 (09:00→21:00)
[2017-02-25] MEDS: FUROSEMIDE 40 MG TAB PO SCH (09:00)
[2017-02-25] MEDS: amLODIPine 5 MG TAB PO SCH ×2 (09:00→21:00)
[2017-02-25] MEDS: LORazepam 2 MG/ML VIAL (J2060) IM PRN (09:11)
[2017-02-25] MEDS: ALPRAZolam 0.5 MG TAB PO PRN (11:43)
[2017-02-25 12:00] VITALS: BP 134/66
[2017-02-25 14:00] VITALS: BP 134/66
--- NOTE | 2017-02-25 17:19 | IPNPDOC ---
Subjective Date Seen The patient was seen on 02/25/17. Subjective Chief Complaint/HPI The patient is a 89-year-old female admitted with a reason for visit of Gi Bleed. Events since last encounter Patient was seen sitting in her bed in no apparent distress with a sitter in the room. The patient is much less cooperative than the last encounter. She removed her IV access the previous night. She is uncooperative with conversations about her current condition as well as a physical examination. She states that she feels sick, and when asked where she feels sick, she points to her head. She is not oriented to person, place, or date, but also admits that she does not want to answer those questions because she wants to be difficult. Nurses reported erythema on the right arm, but the patient refused to show her arm during the physical examination. No other complaints, would like to go home because she feels that the doctors are "trying to kill me". Over the weekend, she made it known that she wanted the endoscopy to be done before she left the hospital. She was given medications for her anxiety and is currently NPO. Will follow up with Ms. Powell in the afternoon to see if she will be compliant with the procedure. General: Denies: Fatigue, Malaise Constitutional: Denies: Chills, Fever, Night Sweats Eyes: Denies: Vision change ENT: Denies: Head Aches Skin: Reports: Rash (Mild erythema noted on the right arm, patient was uncooperative and did not want to show her arm. ), Denies: Bruising, Lesions Pulmonary: Denies: Cough, Dyspnea Cardiovascular: Denies: Chest Pain, Edema, Palpitations Gastrointestinal: Denies: Abdominal Pain, Constipation, Diarrhea, Nausea, Vomiting Genitourinary: Denies: Dysuria, Hematuria Neurological: Denies: Numbness Psych: Reports: Other Psych (Altered mental status possibly due to UTI or anxiety) Objective Physical Examination General Exam: Positive: Alert, Mild Distress, Negative: Cooperative Eye Exam: Positive: Conjunctiva & lids normal, EOMI, Negative: Sclera icteric Chest Exam: Negative: Rhonchi Extremity Exam: Negative: Cyanosis, Edema, Swelling Skin Exam: Negative: Pruritus Neuro Exam: Positive: Normal Speech Psych Exam: Positive: Anxiety, Negative: Oriented x 3 Other physical findings Physical exam limited due to patient refusal. Assessment /Plan Problems (1) Upper GI bleed Status: Acute Response to Treatment: Stable Discussed With: Patient Problem Specific Plan: Consult Specialist Problem Text: Patient is currently NPO as of 00:00 02/25/2017 for a scheduled endoscopy. Patient states that she says that she is afraid to have the procedure done and refuses to take any pills. Patient was given medication for her anxiety and I will follow up to see if she still wants the procedure done early this afternoon. (2) Altered mental state Onset Date: ~ 02/22/2017 Status: Acute Response to Treatment: Progressing Discussed With: Nurse, Patient Problem Specific Plan: Monitor Clinically Problem Text: Patient indicated that she feels sick in her head. UA was strongly indicative of UTI. Due to her altered mental status, the patient is refusing to take her medications. Due to her sudden improvement in condition over the weekend, then sudden relapse it is possible that the altered mental state is due to a effect or some other phycological disorder. Psych will be consulted. Her anxiety has been controlled with Xanax. Will continue antibiotics once patient agrees to start taking medications again. (3) KODI (acute kidney injury) Status: Acute Problem Text: Suspect that this will improve with the treatment of her UTI. She appears euvolemic on clinical exam (no edema, cough, SOB). We'll continue to monitor. (4) Anemia Status: Acute Response to Treatment: Controlled Discussed With: Patient Problem Text: Most likely due to upper gastrointestinal bleed due to recent history of black tarry stools and lightheadedness. She continues to be stable, however, Will monitor hemoglobin and hematocrit to determine the need for more transfusions. Since the hemoglobin is about the same as yesterday, I suspect a chronic slow bleed in the gastrointestinal system. (5) Dyspnea Status: Acute Response to Treatment: Improving Discussed With: Patient Problem Text: Likely due to fluid overload. (6) Chronic kidney disease, stage 3 Status: Chronic Response to Treatment: Stable (7) HTN (hypertension) Status: Chronic Response to Treatment: Stable Problem Text: Continue home dose of Norvasc (8) Chronic atrial fibrillation Status: Chronic Response to Treatment: Stable (9) Hypothyroidism Status: Chronic Response to Treatment: Stable Problem Text: Continue on home dose of levothyroxine (10) Anxiety Status: Acute Response to Treatment: Improving Problem Text: Patient denies being anxious, but she does exhibit symptoms more consistent with suspicion, delirium, combativeness, and overall will not cooperate with physical exam and refuses to answer any questions. (11) Primary biliary cirrhosis Status: Chronic Problem Text: History obtained from past medical record. Continue on home dose of ursodiol. (12) Asthma Status: Chronic Response to Treatment: Stable Problem Text: Continue home dosage of Symbicort. Plan/VTE VTE Prophylaxis Ordered?: No VTE Exclusion Pharmacological: Active Bleeding VS, I&O, 24H, Fishbone Vital Signs/I&O Vital Signs Date Time Temp Pulse Resp B/P Pulse Ox O2 Delivery O2 Flow Rate FiO2 02/24/17 22:00 98.8 73 17 114/53 98 02/24/17 21:00 Room Air 02/21/17 07:35 2.0 I&O- Last 24 Hours up to 6 AM 02/25/17 05:59 Intake Total 1660 ml Output Total 650 ml Balance 1010 ml Laboratory Data 24H LABS Laboratory Tests 2 02/24/17 18:26: Bedside Glucose (Misc Panel) 138H Microbiology Microbiology 02/22/17 Stool Occult Blood (SADI) - Final, Complete 02/22/17 Urine Culture - Final, Complete Citrobacter Amalonaticus CHANO ARITA DO Feb 25, 2017 07:53
[2017-02-25] MEDS: ACETAMINOPHEN TAB 650MG DOSE (2X325MG) PO PRN (18:22)
[2017-02-25 22:00] VITALS: BP 111/57
[2017-02-26] MEDS: LEVOTHYROXINE 0.088 MG TAB (88 MCG) PO SCH (05:32)
[2017-02-26] MEDS: CIPROFLOXACIN 500 MG TAB PO SCH (05:32)
[2017-02-26 06:00] VITALS: BP 134/62
[2017-02-26 07:01] LABS: MEAN CORPUSCULAR HEMOGLOBIN 23.5 pg (27.0-33.0); MEAN CORPUSCULAR HGB CONC 29.2 g/dl (32.0-36.5); MEAN CORPUSCULAR VOLUME 80.7 fl (80.0-96.0); RED CELL DISTRIBUTION WIDTH 16.2 % (11.5-14.5); WHITE BLOOD COUNT 3.8 K/mm3 (4.0-10.0)
[2017-02-26 07:17] LABS: CALCIUM LEVEL 9.7 MG/DL (8.8-10.2); CREATININE FOR GFR 1.51 MG/DL (0.55-1.02); GLOMERULAR FILTRATION RATE 34.5 (>32); POTASSIUM SERUM 3.5 MEQ/L (3.5-5.1)
[2017-02-26] MEDS: SYMBICORT 160/4.5MCG INHALER 6GM INH SCH ×2 (08:11→21:34)
[2017-02-26] MEDS: VITAMIN D 1,000 INTERNATIONAL UNITS TABLET PO SCH (10:00)
[2017-02-26] MEDS: PANTOPRAZOLE 40MG TAB (PROTONIX) PO SCH ×2 (10:00→22:34)
[2017-02-26] MEDS: amLODIPine 5 MG TAB PO SCH ×2 (10:00→22:34)
[2017-02-26] MEDS: ATENOLOL 50 MG TAB PO SCH (10:01)
[2017-02-26] MEDS: URSODIOL 300 MG CAP PO SCH ×2 (10:01→22:34)
[2017-02-26] MEDS: FUROSEMIDE 40 MG TAB PO SCH (10:01)
[2017-02-26] MEDS: QUEtiapine FUMARATE 25 MG TAB PO SCH ×3 (10:01→22:34)
--- NOTE | 2017-02-26 11:20 | IPNPDOC ---
Subjective Date Seen The patient was seen on 02/26/17. Subjective Chief Complaint/HPI The patient is a 89-year-old female admitted with a reason for visit of Gi Bleed. Events since last encounter Patient was sitting up in her bed eating breakfast. The patient seems to be more cooperative this morning, although she still refuses to answer most questions about her health. She allowed for a limited physical examination this morning. Denies any cough, sputum production, and chest pain. ENT: Denies: Head Aches Pulmonary: Denies: Cough, Dyspnea Cardiovascular: Denies: Chest Pain, Palpitations Gastrointestinal: Denies: Abdominal Pain Genitourinary: Denies: Dysuria Psych: Reports: Anger Objective Physical Examination General Exam: Positive: Alert, Negative: Cooperative Eye Exam: Positive: Conjunctiva & lids normal, EOMI Chest Exam: Positive: Rhonchi (bilateral lower lobe crackles) Heart Exam: Positive: Normal S1, Normal S2, Rate Normal, Negative: Gallops, Murmurs, Rubs Neuro Exam: Positive: Normal Speech Psych Exam: Positive: Anxiety Assessment /Plan Assessment Yomaira Powell is a 89 year old woman who presented with black tarry stools for 3 days, dizzyness, and shortness of breath for 5 days. Problems (1) Upper GI bleed Status: Acute Response to Treatment: Stable Discussed With: Patient Problem Specific Plan: Consult Specialist Problem Text: Patient states that her favorite doctor is the GI doctor, but she has yet to meet him. She denies wanting any invasive procedures. She is no longer NPO. Will continue to monitor H/H. Ordered an upper GI small bowel follow through. (2) Altered mental state Onset Date: ~ 02/22/2017 Status: Acute Response to Treatment: Progressing Discussed With: Nurse, Patient Problem Specific Plan: Monitor Clinically Problem Text: Patient is more cooperative today. Patient still refuses to answer questions related to orientation. Patient seems aggitated. [facility] was consulted. Awaiting recommendations per psychiatry. (3) KODI (acute kidney injury) Status: Acute Problem Text: Suspect that this will improve with the treatment of her UTI. She appears euvolemic on clinical exam (no edema, cough, SOB). We'll continue to monitor. (4) Anemia Status: Acute Response to Treatment: Controlled Discussed With: Patient Problem Text: Most likely due to upper gastrointestinal bleed due to recent history of black tarry stools and lightheadedness. She continues to be stable, however, Will monitor hemoglobin and hematocrit to determine the need for more transfusions. Since the hemoglobin is about the same as yesterday, I suspect a chronic slow bleed in the gastrointestinal system. (5) Dyspnea Status: Acute Response to Treatment: Stable, Worse Discussed With: Patient Problem Text: Likely due to fluid overload. (6) Chronic kidney disease, stage 3 Status: Chronic Response to Treatment: Stable (7) HTN (hypertension) Status: Chronic Response to Treatment: Stable Problem Text: Continue home dose of Norvasc (8) Chronic atrial fibrillation Status: Chronic Response to Treatment: Stable (9) Hypothyroidism Status: Chronic Response to Treatment: Stable Problem Text: Continue on home dose of levothyroxine (10) Anxiety Status: Acute Response to Treatment: Improving Problem Text: Patient denies being anxious. Will not cooperate with complete physical exam and refuses to answer most questions. (11) Primary biliary cirrhosis Status: Chronic Problem Text: History obtained from past medical record. Continue on home dose of ursodiol. (12) Asthma Status: Chronic Response to Treatment: Stable Problem Text: Continue home dosage of Symbicort. Plan/VTE VTE Prophylaxis Ordered?: No VTE Exclusion Pharmacological: Active Bleeding Disposition Attending Note: I have independently examined this patient and all aspects of the exam and treatment decisions have been discussed with the resident. A member of the hospitalist staff will continue to follow this patient through discharge. VS, I&O, [facility]/I&O Vital Signs Date Time Temp Pulse Resp B/P Pulse Ox O2 Delivery O2 Flow Rate FiO2 02/26/17 06:00 97.7 76 17 134/62 93 Room Air 02/21/17 07:35 2.0 I&O- Last 24 Hours up to 6 AM 02/26/17 06:00 Intake Total 1080 ml Output Total 400 ml Balance 680 ml Laboratory Data 24H LABS Laboratory Tests 2 02/25/17 12:01: Bedside Glucose (Misc Panel) 108 02/25/17 16:53: Bedside Glucose (Misc Panel) 140H 02/26/17 00:44: Bedside Glucose (Misc Panel) 101 02/26/17 06:14: Bedside Glucose (Misc Panel) 82L 02/26/17 06:35: Anion Gap 9, Blood Urea Nitrogen 23H, Creatinine 1.51H, Sodium Level 141, Potassium Level 3.5, Chloride Level 109H, Carbon Dioxide Level 23, Calcium Level 9.7, Glomerular Filtration Rate 34.5 CBC/BMP Laboratory Tests 02/26/17 06:35 Calcium Level 9.7, Red Blood Count 3.71 L, Mean Corpuscular Volume 80.7, Mean Corpuscular Hemoglobin 23.5 L, Mean Corpuscular Hemoglobin Concent 29.2 L, Red Cell Distribution Width 16.2 H Microbiology Microbiology 02/22/17 Stool Occult Blood (SADI) - Final, Complete 02/22/17 Urine Culture - Final, Complete Citrobacter Amalonaticus CHANO ARITA DO Feb 26, 2017 08:28 ALEJANDRO ALAN DO Feb 26, 2017 15:51
[2017-02-26 14:00] VITALS: BP 137/71
--- NOTE | 2017-02-26 21:48 | IPN ---
DATE: 02/26/2017 The patient was not evaluated today. I came to see the patient last night at around 8:00 at night, and she sleeping. I again came to see her today at 4:30 in the afternoon and she was fast asleep. I did not feel that I should wake her up since I suspected the patient would be less likely to be cooperative with interview. It seems that when Dr. Zelaya saw her today, according to her notes, she was not willing to answer any orientation questions. The nurse tells me, however, that the patient has been much more pleasant and cooperative today and that the only medication that the patient has been given is her Seroquel 25 mg three times a day. I will attempt tomorrow to return to evaluate the patient, and in the meantime, I recommend that maybe the dose of the Seroquel should be decreased to 25 mg twice a day. MTDD
[2017-02-26 22:00] VITALS: BP 125/60
[2017-02-26] MEDS: POLYVINYL ALCOHOL OPHTH SOLN 15 ML(LIQUITEARS) OU PRN (22:37)
[2017-02-26] MEDS ORDERED: IPRATROPIUM 0.5MG/ALBUTEROL 2.5MG INH SOL UD 3ML (DUONEB)(J7620) NEB PRN (23:15)
[2017-02-27] MEDS ORDERED: FUROSEMIDE 20 MG/2 ML VIAL (J1940) IV ONE (00:15)
[2017-02-27] MEDS: IPRATROPIUM 0.5MG/ALBUTEROL 2.5MG INH SOL UD 3ML (DUONEB)(J7620) NEB SCH ×3 (00:16→15:42)
[2017-02-27 06:00] VITALS: BP 141/64
[2017-02-27 07:06] LABS: MEAN CORPUSCULAR HEMOGLOBIN 23.4 pg (27.0-33.0); MEAN CORPUSCULAR HGB CONC 29.3 g/dl (32.0-36.5); MEAN CORPUSCULAR VOLUME 79.9 fl (80.0-96.0); RED CELL DISTRIBUTION WIDTH 16.3 % (11.5-14.5); WHITE BLOOD COUNT 4.4 K/mm3 (4.0-10.0)
[2017-02-27 07:21] LABS: CALCIUM LEVEL 9.9 MG/DL (8.8-10.2); CREATININE FOR GFR 1.52 MG/DL (0.55-1.02); GLOMERULAR FILTRATION RATE 34.3 (>32); POTASSIUM SERUM 3.5 MEQ/L (3.5-5.1)
[2017-02-27] MEDS: SYMBICORT 160/4.5MCG INHALER 6GM INH SCH ×2 (07:52→20:54)
--- NOTE | 2017-02-27 08:33 | REP ---
AP PORTABLE CHEST: 02/26/2017. Comparison: Chest x-ray 02/21/2017, 02/20/2017. Clinical history: Dyspnea Findings: Cardiomegaly with left atrial and left ventricular enlargement. Some right heart enlargement and some pulmonary venous hypertension. This is improved since the previous study. CP angles are more sharply defined indicating effusions have decreased. Portable chest does not show the posterior and lower lung zones. Underlying fibrosis noted. The aorta is calcified at the arch, minimally tortuous but normal for age. Airway intact. Bones are demineralized with degenerative changes in the shoulders and spine. Impression: 1. Cardiomegaly with left atrial and ventricular enlargement, some pulmonary venous hypertension, but this is improved since 02/21/2017. Effusion is noted on previous study and likely smaller with better defined CP angles. However the posterior and lower lung zones cannot be well visualized on this portable chest. There is no dense consolidation or iker edema. Signed by Everett Holguin MD 02/27/2017 03:25 P
--- NOTE | 2017-02-27 11:26 | IPNPDOC ---
Subjective Date Seen The patient was seen on 02/27/17. Subjective Chief Complaint/HPI The patient is a 89-year-old female admitted with a reason for visit of Gi Bleed. Events since last encounter Patient is laying in bed and calm. She is more cooperative this morning and states that she does not have any complaints. The previous night she had an episode of shortness of breath. A chest xray was obtained and she was given 20mg Lasix due to the possibility of excess fluid in her lungs. She had a urine output of 450mL and felt better. She denies and shortness of breath this morning. She is anxious and would like to go home. Currently NPO. Constitutional: Denies: Chills, Fever, Night Sweats Eyes: Denies: Vision change ENT: Denies: Head Aches Pulmonary: Denies: Cough, Dyspnea Cardiovascular: Denies: Chest Pain, Palpitations Gastrointestinal: Denies: Abdominal Pain, Diarrhea, Nausea, Vomiting Psych: Reports: Anxiety Objective Physical Examination General Exam: Positive: Alert, Cooperative, Mild Distress Eye Exam: Positive: EOMI Chest Exam: Positive: Rales (Bilateral bases) Heart Exam: Positive: Normal S1, Normal S2, Rate Normal, Negative: Gallops, Murmurs, Rubs Abdomen Exam: Positive: Normal bowel sounds, Soft, Negative: Tenderness Neuro Exam: Positive: Normal Speech Psych Exam: Positive: Anxiety Assessment /Plan Problems (1) Upper GI bleed Status: Acute Response to Treatment: Stable Discussed With: Patient Problem Specific Plan: Consult Specialist Problem Text: Continue to monitor H/H. An upper GI small bowel follow through is scheduled today, patient is currently NPO. H/H is stable with no evidence of recent acute blood loss. Does not note any blood in the stool. (2) Altered mental state Onset Date: ~ 02/22/2017 Status: Acute Response to Treatment: Progressing Discussed With: Nurse, Patient Problem Specific Plan: Monitor Clinically Problem Text: Patient is more cooperative today. [facility] was consulted but was unable to make an assessment due to the patient being asleep both times she came to see her. Based on talking with the nurses and reading progress notes, Dr. Hodge recommended to decrease her dose of Seroquil to 25mg BID. (3) KODI (acute kidney injury) Status: Acute Problem Text: Patient has not continued treatment for her UTI. Will continue to try to make her understand the importance of taking the medication. Suspect that this will improve with the treatment of her UTI. She appears euvolemic on clinical exam (no edema, cough, SOB). We'll continue to monitor. (4) Anemia Status: Acute Response to Treatment: Controlled Discussed With: Patient Problem Text: Most likely due to upper gastrointestinal bleed due to recent history of black tarry stools and lightheadedness. She continues to be stable, however, Will monitor hemoglobin and hematocrit to determine the need for more transfusions. Since the hemoglobin is about the same as yesterday, I suspect a chronic slow bleed in the gastrointestinal system. No evidence of acute blood loss. (5) Dyspnea Status: Acute Response to Treatment: Stable, Worse Discussed With: Patient Problem Text: Likely due to fluid overload. Chest XRay showed bilateral opacities, and she was treated with 20mg lasix. Her symptoms improved after a urine output of 450mL. (6) Chronic kidney disease, stage 3 Status: Chronic Response to Treatment: Stable Problem Text: BUN and creatinine are not as elevated today. Continue to monitor. (7) HTN (hypertension) Status: Chronic Response to Treatment: Stable Problem Text: Continue home dose of Norvasc (8) Chronic atrial fibrillation Status: Chronic Response to Treatment: Stable (9) Hypothyroidism Status: Chronic Response to Treatment: Stable Problem Text: Continue on home dose of levothyroxine (10) Anxiety Status: Acute Response to Treatment: Improving Problem Text: Patient seems anxious and would like to go home. (11) Primary biliary cirrhosis Status: Chronic Problem Text: History obtained from past medical record. Continue on home dose of ursodiol. (12) Asthma Status: Chronic Response to Treatment: Stable Problem Text: Continue home dosage of Symbicort. Plan/VTE VTE Prophylaxis Ordered?: No VTE Exclusion Pharmacological: Active Bleeding Disposition Attending note: patient seen independently and discussed the case in depth with the resident. I agree with the treatment plan as outlined above. VS, I&O, 24H, Fishbone Vital Signs/I&O Vital Signs Date Time Temp Pulse Resp B/P Pulse Ox O2 Delivery O2 Flow Rate FiO2 02/27/17 06:00 98.4 74 18 141/64 100 Room Air 02/21/17 07:35 2.0 I&O- Last 24 Hours up to 6 AM 02/27/17 05:59 Intake Total 2160 ml Output Total 1800 ml Balance 360 ml Laboratory Data 24H LABS Laboratory Tests 2 02/27/17 06:25: Anion Gap 8, Blood Urea Nitrogen 20H, Creatinine 1.52H, Sodium Level 141, Potassium Level 3.5, Chloride Level 109H, Carbon Dioxide Level 24, Calcium Level 9.9, Glomerular Filtration Rate 34.3 CBC/BMP Laboratory Tests 02/27/17 06:25 Calcium Level 9.9, Red Blood Count 3.60 L, Mean Corpuscular Volume 79.9 L, Mean Corpuscular Hemoglobin 23.4 L, Mean Corpuscular Hemoglobin Concent 29.3 L, Red Cell Distribution Width 16.3 H Microbiology Microbiology 02/22/17 Stool Occult Blood (SADI) - Final, Complete 02/22/17 Urine Culture - Final, Complete Citrobacter Amalonaticus CHANO ARITA DO Feb 27, 2017 08:01 ALEJANDRO ALAN DO Mar 01, 2017 16:09
[2017-02-27] MEDS ORDERED: E-Z PAQUE 60% w/v SUSP 355ML BOTTLE As Ordered ONE (11:36)
[2017-02-27] MEDS ORDERED: E-Z-GAS II EFFERVESCENT PACKET (SODIUM BICARB./CITRIC ACID/SIMETHICONE) As Ordered ONE (11:36)
[2017-02-27] MEDS ORDERED: E-Z-HD 98% w/w 340GM SUSP BTL As Ordered ONE (11:36)
[2017-02-27 14:00] VITALS: BP 144/68
[2017-02-27] MEDS: ATENOLOL 50 MG TAB PO SCH (14:23)
[2017-02-27] MEDS: PANTOPRAZOLE 40MG TAB (PROTONIX) PO SCH ×2 (14:23→20:32)
[2017-02-27] MEDS: CIPROFLOXACIN 500 MG TAB PO SCH (14:24)
[2017-02-27] MEDS: URSODIOL 300 MG CAP PO SCH ×2 (14:24→20:31)
[2017-02-27] MEDS: LEVOTHYROXINE 0.088 MG TAB (88 MCG) PO SCH (14:24)
[2017-02-27] MEDS: VITAMIN D 1,000 INTERNATIONAL UNITS TABLET PO SCH (14:24)
[2017-02-27] MEDS: amLODIPine 5 MG TAB PO SCH ×2 (14:25→20:32)
[2017-02-27] MEDS: FUROSEMIDE 40 MG TAB PO SCH (14:25)
--- NOTE | 2017-02-27 15:22 | REP ---
SINGLE CONTRAST UPPER GI SERIES AND SMALL-BOWEL FOLLOW-THROUGH: 02/27/2017. Comparison: 07/21/2004. Clinical history: Upper GI bleed, likely chronic. Findings: Crabber film shows moderate stool in the right colon. Scattered stool elsewhere without dilated loops. Calcification left upper quadrant appears to be vascular in the left true pelvis; may be a phlebolith or other. There is no mass. There are degenerative changes and demineralization in the spine. Left SI joint sclerosis and there is mild bilateral hip arthritis, left greater than right. Only single contrast could be performed with oral pharyngeal transfer, prompt. No stricture of the cervical esophagus. No laryngeal penetration or aspiration. There is extensive dysmotility with secondary tertiary contractions of the thoracic esophagus. There is an hiatal hernia again seen. Mild distal esophageal stricture. Stomach shows no mass or extrinsic mass effect. Visible loops of folds unremarkable. There was reflux into the hiatal hernia and lower esophagus. No mass or extrinsic mass effect. No definite ulcer crater. Duodenum shows no fold thickness abnormality, ulcer or mass. No extrinsic mass effect. Impression 1. There is a small to moderate sized hiatal hernia again seen with significant dysmotility and secondary tertiary contractions in the thoracic esophagus and some distal esophageal stricture just above the hernia. Reflux into the mid-esophagus at least is observed. 2. Stomach and duodenum without definite fold thickness abnormalities, ulcerations, abnormal fold thickness, mass or extrinsic mass effect. Small bowel follow-through: Further barium meal was administered. Film at 45 minutes does show contrast into the right colon. A normal feathery mucosal pattern of the jejunum without dilated loops, angulated or strictured loops noted and there is more featureless ileum without nodule, fold thickness or stricture. Terminal ileum unremarkable. There is no tenderness with ballottement. Impression: 1. Normal small bowel follow-through. Transit time to the cecum was less than 45 minutes. No significant abnormality. Fluoroscopy time: 1 min 52 sec. Signed by Everett Holguin MD 02/27/2017 03:34 P
[2017-02-27] MEDS: QUEtiapine FUMARATE 25 MG TAB PO SCH (20:31)
[2017-02-27 22:00] VITALS: BP 133/63
[2017-02-28] MEDS: LEVOTHYROXINE 0.088 MG TAB (88 MCG) PO SCH (05:52)
[2017-02-28] MEDS: CIPROFLOXACIN 500 MG TAB PO SCH (05:52)
[2017-02-28 06:00] VITALS: BP 155/86
[2017-02-28 06:27] LABS: MEAN CORPUSCULAR HEMOGLOBIN 22.9 pg (27.0-33.0); MEAN CORPUSCULAR HGB CONC 28.9 g/dl (32.0-36.5); MEAN CORPUSCULAR VOLUME 79.1 fl (80.0-96.0); RED CELL DISTRIBUTION WIDTH 16.1 % (11.5-14.5); WHITE BLOOD COUNT 4.8 K/mm3 (4.0-10.0)
[2017-02-28 06:42] LABS: CREATININE FOR GFR 1.53 MG/DL (0.55-1.02); POTASSIUM SERUM 3.4 MEQ/L (3.5-5.1)
[2017-02-28] MEDS: IPRATROPIUM 0.5MG/ALBUTEROL 2.5MG INH SOL UD 3ML (DUONEB)(J7620) NEB SCH ×3 (07:43→15:12)
[2017-02-28] MEDS: SYMBICORT 160/4.5MCG INHALER 6GM INH SCH ×2 (07:44→21:05)
[2017-02-28] MEDS: VITAMIN D 1,000 INTERNATIONAL UNITS TABLET PO SCH (09:44)
[2017-02-28] MEDS: FUROSEMIDE 40 MG TAB PO SCH (09:44)
[2017-02-28] MEDS: PANTOPRAZOLE 40MG TAB (PROTONIX) PO SCH ×2 (09:44→20:22)
[2017-02-28] MEDS: URSODIOL 300 MG CAP PO SCH ×2 (09:45→20:23)
[2017-02-28] MEDS ORDERED: POTASSIUM CHLORIDE 10 MEQ SR TABLET PO ONE (09:45)
[2017-02-28] MEDS: amLODIPine 5 MG TAB PO SCH ×2 (09:45→20:22)
[2017-02-28] MEDS: QUEtiapine FUMARATE 25 MG TAB PO SCH ×2 (09:45→20:23)
[2017-02-28] MEDS: ATENOLOL 50 MG TAB PO SCH (09:46)
[2017-02-28] MEDS: ACETAMINOPHEN TAB 650MG DOSE (2X325MG) PO PRN (13:40)
[2017-02-28 14:00] VITALS: BP 135/64
[2017-02-28] MEDS ORDERED: MOM 30ML SUSPENSION UDC PO PRN (18:45)
--- NOTE | 2017-02-28 19:51 | IPNPDOC ---
Subjective Date Seen The patient was seen on 02/28/17. Subjective Chief Complaint/HPI The patient is a 89-year-old female admitted with a reason for visit of Gi Bleed. Events since last encounter Ms. Powell is much more pleasant this morning. Her only complaint at this time is that she would like to go home. Otherwise, the remainder of her review of systems is negative. General: Reports: Normal Appetite, Denies: Fatigue, Malaise Constitutional: Denies: Chills, Fever, Night Sweats ENT: Denies: Head Aches, Sore Throat Skin: Denies: Bruising, Lesions, Rash Pulmonary: Denies: Cough, Dyspnea Cardiovascular: Denies: Chest Pain, Palpitations Gastrointestinal: Denies: Abdominal Pain, Constipation, Diarrhea, Nausea, Vomiting Neurological: Denies: Weakness Objective Physical Examination General Exam: Positive: Alert, Cooperative, No Acute Distress Eye Exam: Positive: Conjunctiva & lids normal, EOMI Chest Exam: Positive: Rales (minimal Bilaterally at the bases) Heart Exam: Positive: Normal S1, Normal S2, Rate Normal, Negative: Gallops, Murmurs, Rubs Abdomen Exam: Positive: Normal bowel sounds, Soft, Negative: Tenderness Extremity Exam: Negative: Clubbing, Cyanosis, Edema Skin Exam: Negative: Pruritus Neuro Exam: Positive: Normal Speech Psych Exam: Positive: Anxiety, Mental status NL Assessment /Plan Problems (1) Upper GI bleed Status: Acute Response to Treatment: Stable Discussed With: Patient Problem Specific Plan: Consult Specialist Problem Text: H/H continues to be stable. Upper GI series shows a hiatal hernia, but is otherwise unremarkable. Will advance her diet as tolerated for today and continue to monitor. (2) Altered mental state Onset Date: ~ 02/22/2017 Status: Acute Response to Treatment: Progressing Discussed With: Nurse, Patient Problem Specific Plan: Monitor Clinically Problem Text: Patient is more cooperative today. [facility] was consulted but was unable to make an assessment due to the patient being asleep both times she came to see her. Based on talking with the nurses and reading progress notes, Dr. Hodge recommended to decrease her dose of Seroquil to 25mg BID. (3) KODI (acute kidney injury) Status: Acute Problem Text: Creatinine appears to have stabilized, her previous baseline is unknown. She has taken cipro intermittently during her stay, she did receive 3 doses IV and 4 oral so far, so she has probably been appropriately treated at this point. She continues to remain afebrile. (4) Anemia Status: Acute Response to Treatment: Controlled Discussed With: Patient Problem Text: Most likely due to upper gastrointestinal bleed due to recent history of black tarry stools and lightheadedness. She continues to be stable, however, Will monitor hemoglobin and hematocrit to determine the need for more transfusions. Since the hemoglobin is about the same as yesterday, I suspect a chronic slow bleed in the gastrointestinal system. No evidence of acute blood loss. (5) Dyspnea Status: Acute Response to Treatment: Stable, Worse Discussed With: Patient Problem Text: No complaints today, still has a few persistent crackles at the bases (6) Chronic kidney disease, stage 3 Status: Chronic Response to Treatment: Stable Problem Text: Continue to monitor. (7) HTN (hypertension) Status: Chronic Response to Treatment: Stable Problem Text: Continue home dose of Norvasc (8) Chronic atrial fibrillation Status: Chronic Response to Treatment: Stable (9) Hypothyroidism Status: Chronic Response to Treatment: Stable Problem Text: Continue on home dose of levothyroxine (10) Anxiety Status: Acute Response to Treatment: Improving Problem Text: Patient seems anxious and would like to go home. (11) Primary biliary cirrhosis Status: Chronic Problem Text: History obtained from past medical record. Continue on home dose of ursodiol. (12) Asthma Status: Chronic Response to Treatment: Stable Problem Text: Continue home dosage of Symbicort. Plan/VTE VTE Prophylaxis Ordered?: No VTE Exclusion Pharmacological: Active Bleeding Disposition Attending note: patient seen independently and discussed the case in depth with the resident. I agree with the treatment plan as outlined above. VS, I&O, 24H, Fishbone Vital Signs/I&O Vital Signs Date Time Temp Pulse Resp B/P Pulse Ox O2 Delivery O2 Flow Rate FiO2 02/28/17 14:00 99.5 66 16 135/64 100 Room Air I&O- Last 24 Hours up to 6 AM 02/28/17 06:00 Intake Total 960 ml Output Total 950 ml Balance 10 ml Laboratory Data 24H LABS Laboratory Tests 2 02/28/17 05:51: Anion Gap 10, Blood Urea Nitrogen 17, Creatinine 1.53H, Sodium Level 140, Potassium Level 3.4L, Chloride Level 108H, Carbon Dioxide Level 22, Calcium Level 10.0, Glomerular Filtration Rate 34.0 CBC/BMP Laboratory Tests 02/28/17 05:51 Calcium Level 10.0, Red Blood Count 3.78 L, Mean Corpuscular Volume 79.1 L, Mean Corpuscular Hemoglobin 22.9 L, Mean Corpuscular Hemoglobin Concent 28.9 L, Red Cell Distribution Width 16.1 H Microbiology Microbiology 02/22/17 Stool Occult Blood (SADI) - Final, Complete 02/22/17 Urine Culture - Final, Complete Citrobacter Amalonaticus CHANO ARITA DO Feb 28, 2017 19:51 ALEJANDRO ALAN DO Mar 01, 2017 16:13
[2017-02-28] MEDS: DOCUSATE SODIUM 100 MG CAP PO SCH (20:22)
[2017-02-28] MEDS: POLYVINYL ALCOHOL OPHTH SOLN 15 ML(LIQUITEARS) OU PRN (20:22)
--- NOTE | 2017-02-28 21:06 | CR ---
DATE OF CONSULTATION: 02/27/2017 HISTORY OF PRESENT ILLNESS: I have been asked to see this 89-year-old white woman who was admitted originally for a blood transfusion, but she was found to have a urinary tract infection (UTI), for which she was being treated for. It seems that she started to decompensate within the next following days after admission, becoming very extremely anxious and then paranoid and suspicious, stating that everybody in the hospital was trying to kill her and she was refusing her medications and all treatment. She has been given some Ativan 1 mg on an as needed basis and then some Xanax 0.5 mg on a as needed basis for her agitation. They had also continued the Seroquel 25 mg three times a day. We were able to see that the patient's primary care provider had started the Seroquel recently, 25 mg three times a day, for the purposes of anxiety. I attempted to see the patient the last few days, 02/25 and 02/26/2017, but each time she was fast asleep. Finally I was able to see the patient yesterday. She was currently visiting with her aide, who was able to tell me that she felt that the patient was doing much better today. The patient herself was very pleasant and cooperative. She had no complaints. She was oriented times three. The patient had apparently asked the agency that provides her aides that when she goes home she wanted to at least temporarily have the aide come in five days a week and for longer. Apparently, the patient had allowed to have further testing for a possible gastrointestinal bleed at that point and she felt that if she needed any further testing that she would follow through with that as an outpatient. The patient was very pleasant, as I said. MENTAL STATUS EXAMINATION: She was alert, oriented times three. She is pleasant, cooperative, verbally spontaneous. Eye contact is good. There is no formal thought disorder. She said that her mood was good. Her affect was full range and appropriate. She was not psychotic, suicidal or homicidal. Concentration is fair. Her insight and judgment fairly good. As far as her memory goes, she did show some evidence of some memory problems. She could remember three out of three words immediately. She could only remember one out of three at 5 minutes, but she was able to tell me who the President was and where she was and overall I felt that her memory was fairly good. She could name parts of objects. She could follow three stage command. She could tell me the state that we lived in. Her long-term memory was pretty good. Insight and judgment appeared to be fairly good. DIAGNOSES: 1. Status post delirium, most likely due to urinary tract infection and just being in unfamiliar setting and it seems to be pretty much resolving at this point. PAST PSYCHIATRIC HISTORY: There is no history of any prior psychiatric treatment. She is on Seroquel 25 mg three times a day started by her primary care provider for anxiety. She has never made suicidal attempts. FAMILY HISTORY: There is no psychiatric illness in the family. SUBSTANCE ABUSE: There is no history of any substance abuse. TREATMENT RECOMMENDATIONS: At this point, the patient seems to be doing much better and I have recommended when I came last night but the patient was sound to sleep to cut the Seroquel down to 25 mg twice a day, as I thought that maybe it was too sedating, and she seems to be doing fine at that dose. I have no further recommendations. Reconsult if further problem arises.
[2017-02-28 22:00] VITALS: BP 147/68
[2017-03-01] MEDS: LEVOTHYROXINE 0.088 MG TAB (88 MCG) PO SCH (05:43)
[2017-03-01] MEDS: POLYVINYL ALCOHOL OPHTH SOLN 15 ML(LIQUITEARS) OU PRN ×2 (05:43→10:48)
[2017-03-01] MEDS: CIPROFLOXACIN 500 MG TAB PO SCH (05:43)
[2017-03-01 06:00] VITALS: BP 143/64
[2017-03-01 06:24] LABS: MEAN CORPUSCULAR HEMOGLOBIN 23.2 pg (27.0-33.0); MEAN CORPUSCULAR VOLUME 80.1 fl (80.0-96.0); WHITE BLOOD COUNT 4.6 K/mm3 (4.0-10.0)
[2017-03-01 06:26] LABS: CREATININE FOR GFR 1.74 MG/DL (0.55-1.02); GLOMERULAR FILTRATION RATE 29.3 (>32); POTASSIUM SERUM 4.1 MEQ/L (3.5-5.1)
[2017-03-01] MEDS ORDERED: MAGNESIUM CITRATE 300 ML BTL PO ONE (07:30)
[2017-03-01] MEDS: IPRATROPIUM 0.5MG/ALBUTEROL 2.5MG INH SOL UD 3ML (DUONEB)(J7620) NEB SCH ×2 (08:00)
[2017-03-01 08:07] VITALS: BP 131/58
[2017-03-01] MEDS: SYMBICORT 160/4.5MCG INHALER 6GM INH SCH (08:17)
[2017-03-01] MEDS: PANTOPRAZOLE 40MG TAB (PROTONIX) PO SCH (08:24)
[2017-03-01] MEDS: amLODIPine 5 MG TAB PO SCH (08:24)
[2017-03-01] MEDS: DOCUSATE SODIUM 100 MG CAP PO SCH (08:24)
[2017-03-01 08:25] VITALS: BP 131/58
[2017-03-01] MEDS: URSODIOL 300 MG CAP PO SCH (08:25)
[2017-03-01] MEDS: VITAMIN D 1,000 INTERNATIONAL UNITS TABLET PO SCH (08:25)
[2017-03-01] MEDS: QUEtiapine FUMARATE 25 MG TAB PO SCH (08:25)
[2017-03-01] MEDS: FUROSEMIDE 40 MG TAB PO SCH (08:25)
[2017-03-01] MEDS: ATENOLOL 50 MG TAB PO SCH (08:25)
[2017-03-01] MEDS ORDERED: POTASSIUM CHLORIDE 10 MEQ SR TABLET PO SCH (09:00)
[2017-03-01] MEDS ORDERED: PANT40TA2 PO (09:26)
[2017-03-01] MEDS ORDERED: SERO1TAB3 PO (09:26)
--- NOTE | 2017-03-01 10:38 | DS.PDOC ---
Discharge Summary General Date of Admission Feb 20, 2017 at 16:36 Date of Discharge March 01, 2017 Primary Care Physician: Ally Gregory R.N., A.N.P. Attending Physician: ALEJANDRO ALAN DO Discharge Summary PROCEDURES PERFORMED DURING STAY: Upper GI and small bowel follow through 2016. DISCHARGE DIAGNOSES: 1. Symptomatic anemia 2. Altered mental status 3. Dyspnea 4. Acute Kidney Injury 5. Chronic Kidney Disease (Stage 3) 6. Hypertension 7. Chronic atrial fibrillation 8. Hypothyroidism 9. Anxiety 10. Primary biliary cirrhosis 11. Asthma 12. Cholelithiasis HISTORY OF PRESENT ILLNESS / HOSPITAL COURSE: Patient presented to the ER with a complaint of dizziness, black tarry stools, and lightheadedness. She has had a history of a GI bleed and is on chronic Eliquis. Her hemoglobin was 5.9 and her hematocrit was 21. A CT was performed but it did not show any obvious reason for her blood loss. She was admitted and given 2 units of blood, which improved her hemoglobin and hematocrit. GI was consulted, but she soon developed altered mental status. The patient showed growth of Citrobacter on UA so she was started on appropriate antibiotics. Her altered mental status resolved over the next few days and she was able to tolerate a small bowel follow through study, which did not provide an answer for her acute blood loss. It was suspected that the patient has a chronic bleed and we recommend that the patient follows up with her PCP to get an EGD and colonoscopy in the outpatient setting. The patients hemoglobin and hematocrit have been stable since the transfusion. DISCHARGE MEDICATIONS: Please see below. ALLERGIES: Please see below. PHYSICAL EXAMINATION ON DISCHARGE: VITAL SIGNS: Please see below. GENERAL: No apparent distress. Sitting in her chair eating breakfast. Cooperative with a full physical examination and is pleasant today. HEENT: Normocephalic, atraumatic. Nares patent. Moist oral mucosa. NECK: Supple without tenderness. CARDIOVASCULAR EXAMINATION: Normal S1 and S2. No murmurs, gallops, or rubs. RESPIRATORY EXAMINATION: Slight crackles heard at the bases bilaterally. Good air entry. ABDOMINAL EXAMINATION: Soft, nontender. Normal bowel sounds. EXTREMITIES: No clubbing or cyanosis. SKIN: No rashes or lesions. Contusions on right arm from IV sites. NEUROLOGICAL EXAMINATION: Normal tone. PSYCHIATRIC EXAMINATION: Mood stable. A&O x3. LABORATORY DATA: Please see below. IMAGIN02/20/17: Chest XRay showed diffuse interstitial coarsening. This improved with serial imaging over the course of her stay. 02/20/17: Cholelithiasis and a small hiatal hernia with soft tissue thickening at the GE junction. 02/27/17: Upper GI and small bowel follow through was essentially normal except for reflux. ACTIVITY: As tolerated. DIET: As tolerated. DISCHARGE PLAN: Discharge to home where she will have daily monitoring. DISCHARGE INSTRUCTIONS: 1. Follow up with PCP Ally LORA within 7-10 days for anemia 2. As the patient has not had any inpatient bleeding, restart Elequis. 3. Recommend follow up with GI for evaluation for EGD/Colonoscopy DISCHARGE CONDITION: Stable. Attending note: patient seen independently and discussed the case in depth with the resident. I agree with the treatment plan as outlined above. Vital Signs/I&Os Vital Signs Date Time Temp Pulse Resp B/P Pulse Ox O2 Delivery O2 Flow Rate FiO2 03/01/17 08:25 77 131/58 03/01/17 08:07 98.6 16 95 Room Air I&O- Last 24 Hours up to 6 AM 03/01/17 06:00 Intake Total 1200 ml Output Total 300 ml Balance 900 ml Laboratory Data Labs 24H Laboratory Tests 2 03/01/17 05:45: Anion Gap 7L, Blood Urea Nitrogen 19H, Creatinine 1.74H, Sodium Level 142, Potassium Level 4.1#, Chloride Level 109H, Carbon Dioxide Level 26, Calcium Level 10.0, Glomerular Filtration Rate 29.3L CBC/BMP Laboratory Tests 03/01/17 05:45 Calcium Level 10.0, Red Blood Count 3.65 L, Mean Corpuscular Volume 80.1, Mean Corpuscular Hemoglobin 23.2 L, Mean Corpuscular Hemoglobin Concent 29.0 L, Red Cell Distribution Width 16.0 H Microbiology Microbiology 02/22/17 Stool Occult Blood (SADI) - Final, Complete 02/22/17 Urine Culture - Final, Complete Citrobacter Amalonaticus Discharge Medications Scheduled Amlodipine Besylate (Amlodipine Besylate) 5 Mg Tab 5 MG PO BID (Reported) Atenolol (Tenormin) 50 Mg Tab 50 MG PO DAILY (Reported) Budesonide/Formoterol (Symbicort 160-4.5 Mcg/Act) 60 Puff/Inhaler Aers 2 PUFF INH BID (Reported) Cholecalciferol (Vitamin D) 1,000 Unit Tab 1,000 UNIT PO DAILY (Reported) Desloratadine (Desloratadine Odt) 5 Mg Tab 5 MG SL QAM (Reported) Furosemide (Furosemide) 40 Mg Tab 40 MG PO DAILY (Reported) Levothyroxine Sodium (Synthroid) 88 Mcg Tab 88 MCG PO DAILY (Reported) Pantoprazole Sodium (Pantoprazole Sodium) 40 Mg Tab 40 MG PO DAILY Quetiapine Fumerate (Seroquel) 25 Mg Tab 25 MG PO BID 9AM, 1PM, AND HS Rivaroxaban (Xarelto) 15 Mg Tab 15 MG PO QPM (Reported) Ursodiol (Ursodiol) 300 Mg Cap 300 MG PO BID (Reported) Allergies Coded Allergies: Nitrofurantoin (Verified Allergy, Unknown, 02/23/13) Penicillins (Verified Allergy, Unknown, 02/23/13) Penicillins Cross Reactors (Verified Allergy, Unknown, 02/23/13) Serotonin Reuptake Inhibitors (Verified Allergy, Unknown, LEXAPRO AND PAROXETINE, 02/23/13) Sulfa Drugs (Verified Allergy, Unknown, 02/23/13) Sulfa Drugs Cross Reactors (Verified Allergy, Unknown, 02/23/13) CHANO ARITA DO Mar 01, 2017 09:49 ALEJANDRO ALAN DO Mar 01, 2017 16:16
== END 2017-03-01 14:25 | disposition home health service (06) | DRG 813 ==
LOC: EDBD 13:21 → M ED 14:52 → M ED INP 16:36 → M PCU 20:28 → M MSPAV 02-24 18:59
PROVIDERS: ADMIT General Practice; ATTEND Hospitalist
PROC: 30253N1 (ICD-10-PCS; principal; 2017-02-20)
DX: D68.32 Hemorrhagic disorder due to extrinsic circulating anticoagulants (principal); G93.41 Metabolic encephalopathy; N17.9 Acute kidney failure, unspecified; D62 Acute posthemorrhagic anemia; N39.0 Urinary tract infection, site not specified; K92.2 Gastrointestinal hemorrhage, unspecified; E03.9 Hypothyroidism, unspecified; I12.9 Hypertensive chronic kidney disease with stage 1 through stage 4 chronic kidney disease, or unspecified chronic kidney disease; F41.9 Anxiety disorder, unspecified; I48.2 Chronic atrial fibrillation; J45.909 Unspecified asthma, uncomplicated; K74.3 Primary biliary cirrhosis; M19.90 Unspecified osteoarthritis, unspecified site; E55.9 Vitamin D deficiency, unspecified; K44.9 Diaphragmatic hernia without obstruction or gangrene; K80.20 Calculus of gallbladder without cholecystitis without obstruction; E87.70 Fluid overload, unspecified; R06.00 Dyspnea, unspecified; N18.3 Chronic kidney disease, stage 3 (moderate); Z88.0 Allergy status to penicillin; Z88.2 Allergy status to sulfonamides; Z96.652 Presence of left artificial knee joint; Z88.8 Allergy status to other drugs, medicaments and biological substances; Z87.891 Personal history of nicotine dependence; Z79.01 Long term (current) use of anticoagulants; Z79.899 Other long term (current) drug therapy

== ENCOUNTER → 2017-03-14 | Outpatient (REF) | payer MEDICARE ==
[~2017-03-14] MED LIST changes: +AMLO5TAB2 PO; +CLAR5TAB PO; +DESL5TAB11 SL; +DRIS50002 PO; +FURO40TA2 PO; +PANT40TA2 PO; +SYMB16INH INH; +VITA100066 PO
[2017-03-14 14:56] LABS: MEAN CORPUSCULAR HEMOGLOBIN 23.9 pg (27.0-33.0); MEAN CORPUSCULAR HGB CONC 29.3 g/dl (32.0-36.5); MEAN CORPUSCULAR VOLUME 81.6 fl (80.0-96.0); RED CELL DISTRIBUTION WIDTH 16.3 % (11.5-14.5)
[2017-03-14 15:34] LABS: ALBUMIN 3.2 GM/DL (3.2-5.2); BILIRUBIN,TOTAL 0.5 MG/DL (0.2-1.0); CALCIUM LEVEL 9.4 MG/DL (8.8-10.2); CREATININE FOR GFR 1.38 MG/DL (0.55-1.02); GLOMERULAR FILTRATION RATE 38.3 (>32); POTASSIUM SERUM 4.2 MEQ/L (3.5-5.1); TOTAL PROTEIN 6.4 GM/DL (6.4-8.2)
== END ==
LOC: M SFHCPLAZ 11:30
PROVIDERS: ATTEND Nurse Practitioner Adult Health
DX: Z00.00 Encounter for general adult medical examination without abnormal findings (principal); Z86.39 Personal history of other endocrine, nutritional and metabolic disease; E03.9 Hypothyroidism, unspecified
CPT/HCPCS: 80053; 83970; 84443; 85027; G0463

== ENCOUNTER 2017-03-20 12:29 | Outpatient (CLI) | payer MEDICARE ==
[~2017-03-20] VITALS: Ht 162.6 cm; Wt 77.6 kg
[~2017-03-20 12:29] MED LIST changes: +ACETAMINOPHEN TAB 650MG DOSE (2X325MG) PO SCH; +diphenhydrAMINE 25 MG CAP PO SCH
[2017-03-20 13:00] VITALS: BP 148/65
[2017-03-20] MEDS ORDERED: FUROSEMIDE 20 MG TAB PO ONE (15:00)
[2017-03-20] MEDS ORDERED: FUROSEMIDE 20 MG/2 ML VIAL (J1940) IV ONE (17:00)
[2017-03-20 22:00] VITALS: BP 153/67
== END 2017-03-20 23:00 | disposition home or self-care (01) ==
LOC: M OPCLI4PV 12:29 → M MSPAV 12:39 → M OPCLI4PV 23:00
PROVIDERS: ATTEND Nurse Practitioner Adult Health
DX: D64.9 Anemia, unspecified (principal); Z88.2 Allergy status to sulfonamides; Z88.0 Allergy status to penicillin; Z88.8 Allergy status to other drugs, medicaments and biological substances
CPT/HCPCS: 36415; 36430; 86850; 86900; 86901; 86920; J1940; P9016

== ENCOUNTER → 2017-03-28 | Outpatient (REF) | payer MEDICARE ==
[~2017-03-28] MED LIST changes: -ACETAMINOPHEN TAB 650MG DOSE (2X325MG) PO SCH; -diphenhydrAMINE 25 MG CAP PO SCH
[2017-03-28 12:39] LABS: MEAN CORPUSCULAR HGB CONC 29.9 g/dl (32.0-36.5); MEAN CORPUSCULAR VOLUME 83.5 fl (80.0-96.0); WHITE BLOOD COUNT 5.4 K/mm3 (4.0-10.0)
[2017-03-28 12:52] LABS: ALBUMIN 3.3 GM/DL (3.2-5.2); ALBUMIN/GLOBULIN RATIO 0.94 (1.00-1.93); BILIRUBIN,TOTAL 0.6 MG/DL (0.2-1.0); CALCIUM LEVEL 9.5 MG/DL (8.8-10.2); CREATININE FOR GFR 1.43 MG/DL (0.55-1.02); GLOMERULAR FILTRATION RATE 36.8 (>32); TOTAL PROTEIN 6.8 GM/DL (6.4-8.2)
== END ==
LOC: M SFHCPLAZ 12:12
PROVIDERS: ATTEND Nurse Practitioner Adult Health
DX: K92.2 Gastrointestinal hemorrhage, unspecified (principal)

== ENCOUNTER → 2017-04-02 | Outpatient (CLI) | payer MEDICARE ==
[~2017-04-02] VITALS: Ht 162.6 cm; Wt 77.1 kg
[~2017-04-02] MED LIST changes: +LIDOCAINE 2% INJ 100 MG/5 ML SDV (FOR ANES.) As Ordered ONE; +NS 1,000 ML IV SCH; +PROPOFOL 200 MG/20 ML VIAL As Ordered ONE
--- NOTE | 2017-04-02 12:34 | ROOR ---
Patient Name: Yomaira Powell Procedure Date: 04/02/2017 12:17 PM Date of : 1925 Age: 89 Room: [facility] Gender: Female Note Status: Finalized Procedure: Upper GI endoscopy Indications: Acute post hemorrhagic anemia, Iron deficiency anemia secondary to chronic blood loss Providers: Kike GARRETT MD Referring MD: Alyl Gregory NP Requesting Provider: Medicines: Monitored Anesthesia Care Complications: No immediate complications. Procedure: Pre-Anesthesia Assessment: - The heart rate, respiratory rate, oxygen saturations, blood pressure, adequacy of pulmonary ventilation, and response to care were monitored throughout the procedure. The Endoscope was introduced through the mouth, and advanced to the second part of duodenum. The upper GI endoscopy was accomplished without difficulty. The patient tolerated the procedure well. Findings: A low-grade of narrowing Schatzki ring (acquired) was found at the gastroesophageal junction. A TTS dilator was passed through the scope. Dilation with a 15-16.5-18 mm balloon dilator was performed to 18 mm. The dilation site was examined and showed complete resolution of luminal narrowing. A medium-sized hiatal hernia was present. The exam was otherwise without abnormality. Impression: - Low-grade of narrowing Schatzki ring. Dilated to 18 mm. - Medium-sized hiatal hernia. - The examination was otherwise normal. - No specimens collected. Recommendation: - Observe patient's clinical course. - Continue present medications. Kike Garrett MD Kike GARRETT MD 04/02/2017 12:34:09 PM This report has been signed electronically. Number of Addenda: 0 Note Initiated On: 04/02/2017 12:17 PM Estimated Blood Loss: Estimated blood loss: none.
--- NOTE | 2017-04-02 12:53 | ROOR ---
Patient Name: Yomaira Powell Procedure Date: 04/02/2017 12:18 PM Date of : 1925 Age: 89 Room: [facility] Gender: Female Note Status: Finalized Procedure: Colonoscopy Indications: Acute post hemorrhagic anemia, Iron deficiency anemia secondary to chronic blood loss Providers: Kike GARRETT MD Referring MD: Ally Gregory NP Requesting Provider: Medicines: Monitored Anesthesia Care Complications: No immediate complications. Procedure: Pre-Anesthesia Assessment: - The heart rate, respiratory rate, oxygen saturations, blood pressure, adequacy of pulmonary ventilation, and response to care were monitored throughout the procedure. The Colonoscope was introduced through the anus and advanced to 5 cm into the ileum. The colonoscopy was performed without difficulty. The patient tolerated the procedure well. The quality of the bowel preparation was good. Findings: The perianal and digital rectal examinations were normal. (Exam: Complete, Prep: Good or Excellent.) A 5 mm polyp was found in the ascending colon. The polyp was sessile. The polyp was removed with a cold snare. Resection and retrieval were complete. Three pedunculated and sessile polyps were found in the sigmoid colon. The polyps were 4 to 8 mm in size. These polyps were removed with a hot snare. Resection and retrieval were complete. An endoloop was maneuvered over the polyp stalks and closed at the mucosal attachment prior to removal in order to prevent bleeding. These polyps were then removed with a hot snare. Resection and retrieval were complete. Multiple medium-mouthed diverticula were found in the sigmoid colon. The exam was otherwise without abnormality on direct and retroflexion views. Impression: - One 5 mm polyp in the ascending colon, removed with a cold snare. Resected and retrieved. - Three 4 to 8 mm polyps in the sigmoid colon, removed with a hot snare and SKIP. Resected and retrieved. - Diverticulosis in the sigmoid colon. - The examination was otherwise normal on direct and retroflexion views. Recommendation: - Telephone endoscopist for pathology results in 2 weeks. - Continue present medications. - Return to referring physician as previously scheduled. - Repeat colonoscopy As Needed. Kike Garrett MD Kike GARRETT MD 04/02/2017 12:53:32 PM This report has been signed electronically. Number of Addenda: 0 Note Initiated On: 04/02/2017 12:18 PM Estimated Blood Loss: Estimated blood loss: none.
[2017-04-02 13:25] VITALS: BP 134/68
== END | disposition home or self-care (01) ==
LOC: M OPP 10:31
PROVIDERS: ATTEND Internal Medicine Gastroenterology
DX: D62 Acute posthemorrhagic anemia (principal); D12.2 Benign neoplasm of ascending colon; D12.5 Benign neoplasm of sigmoid colon; K57.30 Diverticulosis of large intestine without perforation or abscess without bleeding; K22.2 Esophageal obstruction; K44.9 Diaphragmatic hernia without obstruction or gangrene; I48.91 Unspecified atrial fibrillation; I10 Essential (primary) hypertension; E03.9 Hypothyroidism, unspecified; M19.90 Unspecified osteoarthritis, unspecified site; M81.0 Age-related osteoporosis without current pathological fracture; Z78.0 Asymptomatic menopausal state; J45.909 Unspecified asthma, uncomplicated; F41.9 Anxiety disorder, unspecified; Z87.891 Personal history of nicotine dependence; Z88.8 Allergy status to other drugs, medicaments and biological substances; Z88.0 Allergy status to penicillin; Z88.2 Allergy status to sulfonamides; Z79.899 Other long term (current) drug therapy

== ENCOUNTER → 2017-05-02 | Outpatient (REF) | payer MEDICARE ==
[~2017-05-02] MED LIST changes: -LIDOCAINE 2% INJ 100 MG/5 ML SDV (FOR ANES.) As Ordered ONE; -NS 1,000 ML IV SCH; -PROPOFOL 200 MG/20 ML VIAL As Ordered ONE
[2017-05-02 15:36] LABS: MEAN CORPUSCULAR HEMOGLOBIN 23.5 pg (27.0-33.0); MEAN CORPUSCULAR HGB CONC 29.2 g/dl (32.0-36.5); MEAN CORPUSCULAR VOLUME 80.6 fl (80.0-96.0); RED CELL DISTRIBUTION WIDTH 17.5 % (11.5-14.5); WHITE BLOOD COUNT 6.6 K/mm3 (4.0-10.0)
[2017-05-02 16:25] LABS: ALBUMIN 3.4 GM/DL (3.2-5.2); ALBUMIN/GLOBULIN RATIO 0.94 (1.00-1.93); BILIRUBIN,TOTAL 0.6 MG/DL (0.2-1.0); CALCIUM LEVEL 9.5 MG/DL (8.8-10.2); CREATININE FOR GFR 1.39 MG/DL (0.55-1.02); POTASSIUM SERUM 3.7 MEQ/L (3.5-5.1)
== END ==
LOC: M SFHCPLAZ 14:19
PROVIDERS: ATTEND Nurse Practitioner Adult Health
DX: K92.2 Gastrointestinal hemorrhage, unspecified (principal); I48.2 Chronic atrial fibrillation; E03.9 Hypothyroidism, unspecified

== ENCOUNTER 2017-05-22 14:02 | Inpatient (IN) | payer MEDICARE ==
[~2017-05-22] VITALS: Ht 162.6 cm; Wt 75.1 kg
[2017-05-22] MEDS: IPRATROPIUM 0.5MG/ALBUTEROL 2.5MG INH SOL UD 3ML (DUONEB)(J7620) NEB SCH (02:32)
[2017-05-22] MEDS ORDERED: SERO1TAB3 PO (14:21)
[2017-05-22] MEDS ORDERED: VITA500T53 PO (14:21)
[2017-05-22] MEDS ORDERED: VITA400T15 PB (14:21)
[2017-05-22 14:42] LABS: INR 2.22
[2017-05-22 14:43] LABS: ADD MANUAL DIFFER YES; DIFF SLIDE NUMBER 284; MEAN CORPUSCULAR HEMOGLOBIN 22.4 pg (27.0-33.0); MEAN CORPUSCULAR HGB CONC 29.1 g/dl (32.0-36.5); MEAN CORPUSCULAR VOLUME 77.1 fl (80.0-96.0); PLATELET COUNT, AUTOMATED 313 k/mm3 (150-450); RED CELL DISTRIBUTION WIDTH 17.2 % (11.5-14.5); WHITE BLOOD COUNT 10.7 K/mm3 (4.0-10.0)
[2017-05-22 14:45] LABS: ABG BASE EXCESS -6.3 (-2.0-2.0); ABG HCO3 16.5 MEQ/L (22.0-26.0); ABG PARTIAL PRESSURE CO2 22.6 mmHg (35.0-45.0); ABG PARTIAL PRESSURE O2 141.7 mmHg (75.0-100.0); ABG STANDARD HCO3 19.2 MEQ/L (22.0-26.0); ABG TOTAL CO2 17.2 MEQ/L (23.0-31.0); ABG pH (ARTERIAL) 7.481 UNITS (7.350-7.450)
[2017-05-22 14:56] LABS: ANION GAP 13 MEQ/L (8-16); BLOOD UREA NITROGEN 46 MG/DL (7-18); CALCIUM LEVEL 9.5 MG/DL (8.8-10.2); CARBON DIOXIDE LEVEL 20 MEQ/L (21-32); CHLORIDE LEVEL 100 MEQ/L (98-107); CREATININE FOR GFR 2.06 MG/DL (0.55-1.02); GLOMERULAR FILTRATION RATE 24.1 (>32); GLUCOSE, FASTING 102 MG/DL (83-110); POTASSIUM SERUM 3.8 MEQ/L (3.5-5.1); SODIUM LEVEL 133 MEQ/L (136-145)
[2017-05-22 15:01] LABS: ALBUMIN 3.2 GM/DL (3.2-5.2); ALBUMIN/GLOBULIN RATIO 0.97 (1.00-1.93); BILIRUBIN,DIRECT 0.3 MG/DL (0.0-0.2); BILIRUBIN,TOTAL 0.8 MG/DL (0.2-1.0); TOTAL PROTEIN 6.5 GM/DL (6.4-8.2)
[2017-05-22] MEDS ORDERED: PANTOPRAZOLE 40MG INJ (PROTONIX) (C9113) IV ONE (15:15)
[2017-05-22 15:20] LABS: FERRITIN 14 NG/ML (8-252); PERCENT SATURATION 2.8 % (13.2-37.4); TOTAL IRON BINDING CAPACITY 435 UG/DL (250-450)
[2017-05-22 15:33] LABS: FOLATE 10.8 NG/ML (>5.4); VITAMIN B12 LEVEL 431 PG/ML (247-911)
[2017-05-22] MEDS: PANTOPRAZOLE SODIUM 40 MG in D5W MINI-BAG PLUS 50 ML IV SCH ×2 (15:43→22:09)
[2017-05-22 15:45] LABS: ANISOCYTOSIS 1+; BASOPHILS 1 % (0-4); EOSINOPHILS 3 % (0-5); HYPOCHROMASIA 2+; MICROCYTOSIS 1+; POLYCHROMASIA 1+
--- NOTE | 2017-05-22 16:02 | REP ---
Clinical: Dyspnea and cough. Comparison: 02/26/2017. Findings: Stable cardiomegaly and interstitial changes are appreciated. Superimposed pulmonary vascular congestion/interstitial edema as well as trace bibasilar atelectasis and small pleural effusions are suggested. Skeletal structures demonstrate stable osteopenia and degenerative changes. Impression: Cardiomegaly with evidence to suggest pulmonary vascular congestion/interstitial edema including bibasilar atelectasis and small pleural effusions. Signed by Ronaldo Barba MD 05/22/2017 02:50 P
[2017-05-22] MEDS ORDERED: PANT40TA2 PO (16:30)
[2017-05-22] MEDS ORDERED: ACETAMINOPHEN TAB 650MG DOSE (2X325MG) PO PRN (18:00)
[2017-05-22] MEDS ORDERED: IPRATROPIUM 0.5MG/ALBUTEROL 2.5MG INH SOL UD 3ML (DUONEB)(J7620) NEB PRN (18:00)
[2017-05-22 18:17] LABS: FREE T4 1.09 NG/DL (0.76-1.46)
--- NOTE | 2017-05-22 20:15 | HPE ---
DATE OF ADMISSION: 05/22/2017 CHIEF COMPLAINT: This is an 89-year-old female coming in complaining of shortness of breath and lower rectal bleeding. HISTORY OF PRESENT ILLNESS: This is an 89-year-old female with recent admission for dizziness, black tarry stool, and lightheadedness, who was evaluated by gastroenterology for upper and lower endoscopy without significant finding. The patient was on Eliquis and that medication had been stopped. Patient was given two units of blood transfusion. As per patient, she had done upper and lower endoscopy by Dr. Todd without significant finding. Today, she presented complaining of shortness of breath and anemia with lower gastrointestinal (GI) bleeding as well. Patient stated that 1-2 days ago she had bloody stools, initially thought to be hemorrhoids. She is currently on Xarelto for atrial fibrillation. Otherwise, patient denies of any fever, chills, cough, sputum production, abdominal pain, diarrhea, or dysuria. Patient is hard of hearing and is a poor historian as well. Based on previous notes and staff report, patient has a history of atrial fibrillation, was on Eliquis previously, was admitted for GI bleeding in February of this year and had a followup with Dr. Todd as outpatient for upper endoscopy and colonoscopy resulting, as per patient, in no significant finding. Was supposed to be back on Xarelto but she developed GI bleeding 1-2 days ago with acute on chronic shortness of breath, therefore came to the emergency room for further evaluation. Patient states that shortness of breath is worse with anxiety but currently is the same. She does not utilize any oxygen or continuous positive airway pressure (CPAP) or bilevel positive airway pressure (BiPAP) machines at home, other than using an inhaler. Patient was evaluated in the emergency room, noted to have atrial fibrillation with left bundle branch block (LBBB) but as per staff is an old left bundle branch block, with positive guaiac with anemia with hemoglobin and hematocrit of 6.3 and 21.6. Patient is being admitted for a further evaluation for anemia and Dr. De La Vega, the general surgeon, was consulted by the emergency room (ER) physician who recommended admission, blood transfusion, and agreed to a Protonix drip and will be followed up by the surgeon. Patient is being admitted, resting comfortably in the emergency room, still complaining of shortness of breath but seems to be chronic in nature. Patient states that it is unchanged from her chronic shortness of breath that she has normally at home. She utilizes an inhaler at times as needed. PAST MEDICAL HISTORY: Significant for recent admission for GI bleeding secondary due to Eliquis, atrial fibrillation, hypertension, anxiety, osteoarthritis, asthma, chronic kidney disease stage III, baseline creatinine of 1.14, hypothyroidism, nerve decompression surgery of the foot and ankle of the left leg, left knee replacement as well. SOCIAL HISTORY: Patient denies smoking, drinking, or drug abuse, but she used to smoke, but quit 10 years ago. ALLERGIES: She is allergic to SULFA, PENICILLIN, NITROFURANTOIN, LEXAPRO, PAXIL, and AMOXICILLIN. FAMILY MEDICAL HISTORY: Noncontributory at this time. MEDICATIONS: From home currently are as follows: - amlodipine 5 mg by mouth twice a day - atenolol 50 mg by mouth daily - Symbicort 160-4.5 mcg two puffs twice a day - vitamin D 1000 units by mouth daily - furosemide 40 mg daily - Synthroid 88 mcg daily - pantoprazole 40 mg daily - Seroquel 25 mg by mouth three times a day - Xarelto 15 mg by mouth nightly - ursodiol 300 mg by mouth twice a day In terms of physical examination: Her vital signs: No temperature is recorded, again, pulse is 61, respiratory rate of 20, blood pressure is 164/74, saturating 90-96% on oxygen therapy. HEENT: Normocephalic. No trauma noted. Inspection of the eyes, nose, and throat is within normal. Pupils equal, round, and reactive to light and accommodation. Hard of hearing. Mucous is dry. Neck is supple. No tracheal deviation. CARDIAC: S1, S2, irregularly irregular. Pulses present. LUNGS: Equal air entry. Did not hear any significant wheezes, rales, or rhonchi. ABDOMEN: Soft, nontender. No guarding. No rigidity at this time. LOWER EXTREMITIES: No significant pitting edema. Capillary refill present in all four extremities. SKIN: Is intact, warm to touch, but does not seem to be febrile at this time, but again no temperature, will request ER for complete vitals. The patient is currently awake, alert and oriented times three. Hard of hearing. Cranial nerves grossly intact. Motor and sensory is intact. Normal mood and affect for current situation. DIAGNOSTIC STUDIES: Patient had WBC of 10.7, hemoglobin and hematocrit of 6.3 and 21.6, platelet count 313. Sodium 133, potassium 3.8, chloride 100, carbon dioxide 20, BUN 46, creatinine 2.6, glucose 102, lactic acid is 3.7, calcium is 3.5, iron is 12, TIBC is 435, transferrin percentage 2.8, ferritin is 14, total bilirubin is 0.8, direct bilirubin is 0.3, AST and ALT is within normal, alkaline phosphatase is within normal. Cardiac enzymes: Troponin is within normal, CK-MB index is 8.13, CK-MB is 4.8. BNP is 671. Total protein is 6.5, albumin is 3.2. Patient also had a vitamin B12 level of 431, folate is 10.8, and TSH is 6.76. Coagulation studies: INR is 2.22, PT of 25.4. Blood cultures are pending. DIAGNOSTIC IMAGING: Patient had a chest x-ray which showed, as per radiology, cardiomegaly with evidence to suggest pulmonary vascular congestion/interstitial edema including bibasilar atelectasis and small pleural effusion. ASSESSMENT AND PLAN: This is an 89-year-old female with significant past medical history of atrial fibrillation, was on Eliquis, currently now on Xarelto, history of chronic anemia, chronic kidney disease, hypothyroidism, who was recently admitted to the hospital for gastrointestinal (GI) bleeding, had upper endoscopy and colonoscopy by Dr. Todd, who is presenting complaining of worsening shortness of breath along with lower gastrointestinal (GI) bleeding for the past 1-2 days. 1. Lower gastrointestinal (GI) bleeding with symptomatic anemia and shortness of breath. Patient to receive respiratory treatment, oxygen therapy, red blood cell transfusion. Hold the Xarelto. Resume Protonix drip. Dr. De La Vega was consulted by the emergency room (ER) physician, who will be on board patient's case. Will continue to monitor her on telemetry, serial cardiac enzymes. Patient's INR is 2.22 surprisingly, but she is not on any warfarin. Will continue to monitor for any acute bleeding with red blood cell transfusion and consider fresh frozen plasma (FFP) as necessary but again patient is not on any Coumadin so will use fresh frozen plasma (FFP) with hesitation if emergent. 2. Lactic acidosis. No clear cause at this time. Chest x-ray did show congestive heart failure (CHF) and congestion. No sign for any acute infectious disease. Will obtain vital signs, including the temperature. Urinalysis for further evaluation. Repeat lactate. Transfuse and treat problem #1. In addition, obtain procalcitonin level. 3. Acute on chronic kidney disease. Continue to provide judicious IV fluids and red blood cell transfusion. 4. Atrial fibrillation. Rate control as needed. Hold Xarelto. 5. Elevated TSH with hypothyroidism. Will obtain T4 level. In addition, increase levothyroxine. 6. Resume atenolol and amlodipine. Utilize furosemide with parameters. Resume Seroquel. 7. Sequential compression device (SCD) for deep venous thrombosis (DVT) prophylaxis.
[2017-05-22 21:39] VITALS: BP 153/71
[2017-05-22] MEDS: NS 1,000 ML IV SCH (22:08)
[2017-05-22] MEDS: QUEtiapine FUMARATE 25 MG TAB PO SCH (22:09)
[2017-05-22] MEDS: amLODIPine 5 MG TAB PO SCH (22:09)
[2017-05-22 23:59] VITALS: BP 124/55
[2017-05-23] MEDS: URSODIOL 300 MG CAP PO SCH ×3 (01:51→20:05)
[2017-05-23] MEDS: PANTOPRAZOLE SODIUM 40 MG in D5W MINI-BAG PLUS 50 ML IV SCH (01:55)
[2017-05-23] MEDS: IPRATROPIUM 0.5MG/ALBUTEROL 2.5MG INH SOL UD 3ML (DUONEB)(J7620) NEB SCH ×4 (02:00→20:00)
[2017-05-23] MEDS: SYMBICORT 160/4.5MCG INHALER 6GM INH SCH ×3 (02:32→20:55)
[2017-05-23 05:06] LABS: MEAN CORPUSCULAR HGB CONC 31.1 g/dl (32.0-36.5); MEAN CORPUSCULAR VOLUME 80.4 fl (80.0-96.0); RED CELL DISTRIBUTION WIDTH 17.4 % (11.5-14.5); WHITE BLOOD COUNT 6.8 K/mm3 (4.0-10.0)
[2017-05-23 05:18] LABS: CALCIUM LEVEL 9.3 MG/DL (8.8-10.2); CREATININE FOR GFR 1.89 MG/DL (0.55-1.02); GLOMERULAR FILTRATION RATE 26.7 (>32); POTASSIUM SERUM 3.7 MEQ/L (3.5-5.1)
[2017-05-23] MEDS ORDERED: LEVOTHYROXINE 88MCG TABLET (0.088 MG) PO SCH (06:00)
--- NOTE | 2017-05-23 07:36 | ECGEPIP ---
Stationary ECG Study [facility] - ED Test Date: 2017-05-22 Pat Name: SHILPA TINSLEY Department: Room: - Gender: F [employer] Clerk: GORDY : [id number] Requested By: Roxie Muniz Order Number: [id number] Reading MD: Roxie Muniz Measurements Intervals [place] Rate: 57 P: [place]: 0 QRS: -6 QRSD: 165 T: 145 QT: 486 QTc: 473 Interpretive Statements ATRIAL FIBRILLATION WITH SLOW VENTRICULAR RESPONSE LEFT BUNDLE BRANCH BLOCK DECREASED RATE 02/22/17 Electronically Signed On 05-23-2017 7:36:15 EDT by Roxie Muniz
[2017-05-23 07:47] LABS: INR 1.67
[2017-05-23 08:00] VITALS: BP 113/58
[2017-05-23] MEDS: QUEtiapine FUMARATE 25 MG TAB PO SCH ×3 (09:38→20:05)
[2017-05-23] MEDS: PANTOPRAZOLE 40MG INJ (PROTONIX) (C9113) IV SCH ×2 (09:38→20:07)
[2017-05-23] MEDS: FUROSEMIDE 40 MG TAB PO SCH (09:39)
[2017-05-23] MEDS: amLODIPine 5 MG TAB PO SCH ×2 (09:39→20:06)
[2017-05-23] MEDS: VITAMIN D 1,000 INTERNATIONAL UNITS TABLET PO SCH (09:39)
[2017-05-23] MEDS: ATENOLOL 50 MG TAB PO SCH (09:39)
[2017-05-23 11:21] VITALS: BP 129/60
[2017-05-23] MEDS: NS 1,000 ML IV SCH (15:28)
[2017-05-23 16:00] VITALS: BP 123/65
--- NOTE | 2017-05-23 19:52 | IPN ---
DATE: 05/23/2017 SUBJECTIVE: Patient seen and examined in the room today. Patient is a poor historian. Patient stated her breathing is stable. Patient did not pay attention to her bowel movements as she is not sure whether she has blood in the stool. No events reported since admission. OBJECTIVE: VITAL SIGNS: Temperature 97.7, pulse 63, respiration 18, blood pressure 113/58, pulse ox 100% with 4 liter nasal cannula. in room air. GENERAL: Patient is fatigued. No sign of acute distress. Patient is able to answer questions fully. HEENT: Normocephalic, atraumatic, extraocular muscles intact. CARDIOVASCULAR: Positive S1, S2. Regular rate. LUNGS: Clear to auscultation bilaterally. ABDOMEN: Soft, nontender, nondistended. Bowel sounds present. No rebound. No guarding. DERMATOLOGICAL: There is skin color changes of bilateral finger digits and there is erythema at the right bilaterally. On the right lower extremity there is some skin maceration with serous fluid drainage in the anterior stephens. There is 1+ pedal edema bilaterally. LABORATORY DATA: WBC 6.8, hemoglobin 7.9, hematocrit is 25.5, platelet count is 181. Sodium 136, potassium 3.7, chloride 106, carbon dioxide is 20, BUN 41, creatinine 1.89, GFR 26.7, fasting glucose 80, calcium 9.3. ASSESSMENT/PLAN: 1. Symptomatic anemia. Patient had an upper endoscopy and colonoscopy in March [address] Todd. No significant findings what was noted. General surgeon Dr. De La Vega was consulted who recommended continuing with blood transfusion trending with H and H to see if patient can be stabilized. The patient is currently on Protonix drip. If patient continues to have active blood loss then we may consider repeated scope. Otherwise, if patient is able to maintain stable H and H with medical management, he recommended a followup with possible capsule camera in the outpatient setting performed by Dr. Todd. Currently patients Xarelto is on hold. 2. Acute on chronic kidney disease with fluid resuscitation. Patient's creatinine shows down sliding improvement. Will continue to monitor. 3. Atrial fibrillation. Xarelto is on hold due to possible active blood loss. However it is in the satisfactory range. Patient is taking Atenolol 50 mg by mouth daily. 4. Hypothyroidism on Synthroid. Patent's free T4 is the normal range. 5. Elevated INR. Patient has not been taking warfarin. Will followup with a renal function and other potential causes for elevated INR repeat study in the morning showed there is a spontaneously improvement of INR without any specific intervention. Will continue to monitor. 6. Deep venous thrombosis (DVT) prophylaxis due to symptomatic anemia and possible active blood loss. Patient is not on any anticoagulation. Patient is on VINNY and sequential and compression device. [facility]
[2017-05-23 20:00] VITALS: BP 113/69
[2017-05-23 23:51] VITALS: BP 128/62
[2017-05-24] MEDS: IPRATROPIUM 0.5MG/ALBUTEROL 2.5MG INH SOL UD 3ML (DUONEB)(J7620) NEB SCH ×4 (01:32→19:58)
[2017-05-24 04:00] VITALS: BP 122/72
[2017-05-24 05:34] LABS: MEAN CORPUSCULAR HEMOGLOBIN 25.3 pg (27.0-33.0); MEAN CORPUSCULAR HGB CONC 31.3 g/dl (32.0-36.5); MEAN CORPUSCULAR VOLUME 80.8 fl (80.0-96.0); RED CELL DISTRIBUTION WIDTH 17.3 % (11.5-14.5); WHITE BLOOD COUNT 6.2 K/mm3 (4.0-10.0)
[2017-05-24 05:37] LABS: CREATININE FOR GFR 1.61 MG/DL (0.55-1.02); GLOMERULAR FILTRATION RATE 32.1 (>32); POTASSIUM SERUM 3.4 MEQ/L (3.5-5.1)
[2017-05-24] MEDS ORDERED: LEVOTHYROXINE 100MCG TABLET (0.1MG) PO SCH (06:00)
[2017-05-24] MEDS: SYMBICORT 160/4.5MCG INHALER 6GM INH SCH ×2 (07:24→19:58)
[2017-05-24 08:00] VITALS: BP 122/65
[2017-05-24 09:01] LABS: INR 1.41
[2017-05-24 09:23] VITALS: BP 122/65
[2017-05-24] MEDS: ATENOLOL 50 MG TAB PO SCH (09:23)
[2017-05-24] MEDS: amLODIPine 5 MG TAB PO SCH (09:23)
[2017-05-24] MEDS: VITAMIN D 1,000 INTERNATIONAL UNITS TABLET PO SCH (09:23)
[2017-05-24] MEDS: QUEtiapine FUMARATE 25 MG TAB PO SCH ×2 (09:23→15:08)
[2017-05-24] MEDS: PANTOPRAZOLE 40MG INJ (PROTONIX) (C9113) IV SCH (09:23)
[2017-05-24] MEDS: URSODIOL 300 MG CAP PO SCH (09:23)
[2017-05-24] MEDS: FUROSEMIDE 40 MG TAB PO SCH (09:24)
[2017-05-24] MEDS: NS 1,000 ML IV SCH ×2 (09:24→11:43)
[2017-05-24 12:00] VITALS: BP 125/84
--- NOTE | 2017-05-27 18:12 | DSES ---
DATE OF ADMISSION: 05/23/2017 DATE OF DISCHARGE: 05/24/2017 PRIMARY CARE PROVIDER: GUIDO Amaro CONSULTANTS: General surgeon, Alphonso De La Vega MD PROCEDURES: None. COMPLICATIONS: None. DISCHARGE DIAGNOSES: 1. Symptomatic anemia. 2. Acute on chronic kidney disease. 3. Atrial fibrillation. 4. Hypothyroidism. 5. Elevated INR. 6. Acute on chronic renal injury. HOSPITALIZATION COURSE: Patient is an 89-year-old female who presented to [facility] on 05/22/2017, with shortness of breath and rectal bleeding. The patient was found to have a hemoglobin of 6.3 with a hematocrit of 21.6. General surgeon, Dr. De La Vega, was consulted. Patient's chart was reviewed and patient was noted to have a recent colonoscopy and endoscopy on 04/01/2017, which showed no significant abnormalities. After discussion with the surgeon, patient had three packed red blood transfusions on 05/22/2017 and 05/23/2017. Later, patient is monitored on telemetry. Patient's hemoglobin and hematocrit has remained stable. No events were observed. Due to the frequent anemia suspected due to anticoagulation use, patient's Xarelto is discontinued and patient is encouraged to discuss with primary care provider with regard to anticoagulation use for her atrial fibrillation and frequent symptomatic anemia. OBJECTIVE: VITAL SIGNS: Temperature 99.9, pulse 65, respirations 18, blood pressure 125/84 , pulse oximetry 93% in room air. LABORATORY DATA: WBC is 6.2, hemoglobin 9.3, hematocrit 29.7, platelet count 174. Sodium 139, potassium 3.4, chloride 109, carbon dioxide 20, BUN 34, creatinine is 1.61, GFR is 32.1, fasting glucose 76, calcium 9. ABG showed pH of 7.48, pCO2 is 22.6, pO2 is 141.7, HCO3 is 16.5. INR is 2.22 on 05/22/2017, and INR is 1.41 on 05/24/2017. Microbiology is negative after 5 days times two sets. Blood transfusion history: Two packed red blood cell transfusions on 05/22/2017 and one packed red blood cell transfusion on 05/23/2017. IMAGING STUDIES: Portable chest x-ray on 05/22/2017, showed cardiomegaly with evidence suggestive of pulmonary vascular congestion/interstitial edema including bibasilar atelectasis and small pleural effusions. DISCHARGE MEDICATIONS: - amlodipine 5 mg by mouth twice a day - atenolol 50 mg by mouth daily - Symbicort two puffs inhalation twice a day - vitamin D 1000 units by mouth daily - Lasix 40 mg by mouth daily - Synthroid 88 mcg by mouth daily - pantoprazole 40 mg by mouth daily - Seroquel 25 mg by mouth three times a day - ursodiol 300 mg by mouth twice a day On hold medications: - Xarelto 15 mg by mouth nightly DISCHARGE INSTRUCTIONS: Discontinue lines. Discharge to home. Activity as tolerated. Low salt diet as tolerated. Patient should followup with primary care provider, Ally Gregory, in 7-10 days. Patient should discuss the Xarelto usage for patient's atrial fibrillation while patient has frequent symptomatic anemia. DISCHARGE CONDITION: Stable. DISCHARGE TIME: Greater than 30 minutes. MTDD
--- NOTE | 2017-06-19 04:27 | CR.PDOC ---
General Surgery Consultation Date of Consultation 05/23/2017 History and Physical CONSULT REPORT FOR:Luisa Richardson DO REASON FOR CONSULTATION: symptomatic anemia HISTORY OF PRESENT ILLNESS: Patient is currently admitted for symptomatic anemia. She is an 89-year-old female complaining of shortness of breath. She also reports black tarry stool. She was recently admitted in the hospital back in March and followed up with Dr. Todd who performed an upper GI endoscopy as well as colonoscopy as outpatient on April 02. Result of that shows no definite source of bleeding found. She did have diverticulosis. Her upper GI endoscopy shows Schatzki's ring which was dilated, medium sized hiatal hernia but no obvious source of bleeding. At that time she was on Elliquis. She currently is on Xarelto. On speaking to her, her stools for the past day or so was been brown and soft. It has been documented on the H&P that she did have some black tarry stools 2 days back. Her hemoglobin on admission was found to be 6.3. She has received 2 units of packed RBCs. Her repeat hemoglobin has been stable so far. No further bloody bowel movements or tarry stools reported. PAST MEDICAL HISTORY: 1. Reviewed, documented in the H&P PAST SURGICAL HISTORY: INCLUDES: 1. Reviewed documenting the H&P. Pertinent are the colonoscopy and upper endoscopy done in 04/02/2017 ALLERGIES: Please see below. HOME MEDICATIONS: Please see below. REVIEW OF SYSTEMS: GENERAL: Reports feeling weak. HEENT: Denies blurred vision and double vision. Denies ear symptoms. Denies hoarseness. NECK: Denies any neck pain]. CARDIOVASCULAR: Denies chest pain and palpitations. MUSCULOSKELETAL: Denies arthralgias, back pain and thrombophlebitis. SKIN: Denies rash. NEUROLOGIC: Denies headache, stroke and transient ischemic attack. PSYCHIATRIC: Denies anxiety and depression. ENDOCRINE: Denies thyroid disease. HEMATOLOGY/ONCOLOGY: Denies bleeding or clotting disorder. HEART: Denies any chest pains, palpitations, paroxysmal dyspnea, orthopnea. PULMONARY: Reports being short of breath easily GASTROINTESTINAL: See HPI GENITOURINARY: Denies dysuria, frequency, hematuria and nocturia. ENDOCRINE: Denies polydipsia, polyphagia, polyuria, heat or cold intolerance. NUTRITION: Reports fair appetite PHYSICAL EXAMINATION: VITALS SIGNS: Please see below. GENERAL APPEARANCE:Patient seen, laying in bed, awake, alert, and oriented. Comfortable, in no acute distress. SKIN: Warm and moist. HEENT: Normocephalic, atraumatic. [place] palpebral conjunctiva, anicteric sclerae. Lips and mucosa appear moist. NECK: Supple, no thyromegaly. No obvious jugular venous distention. LUNGS: Clear to auscultation bilaterally. No wheezing appreciated. HEART: No chest wall abnormalities. Regular rate and rhythm with no murmurs appreciated. ABDOMEN: Abdomen is , soft, . No hepatosplenomegaly. No umbilical or groin herniations, nondistended. No noticeable rebound or guarding. No grimacing with palpation. No rebound tenderness. No masses appreciated. Digital rectal examination shows brown soft stool in the rectal vault no obvious bleeding. EXTREMITIES: Extremities have no deformities. No edema identified ANCILLARIES: . LABORATORY DATA: Please see below. IMAGING STUDIES: . IMPRESSION AND PLAN: . Symptomatic anemia possibly upper GI source of bleeding though no evidence of continued bleeding at this point. She is hemodynamically stable. She already has had a recent upper endoscopy and colonoscopy and patient does not seem to be actively bleeding, would hold off on repeating the endoscopy and colonoscopy at this point. She could follow-up as an outpatient with me or with Dr. Todd if further workup is desired. Main issue, I think this patient should be on any blood thinners at this point with continued intermittent bleeding. She also may need further workup which may include capsule endoscopy as an outpatient. Vital Signs 97.7 63 18 113/58 100% at 4 L nasal cannula Home Medications Scheduled Amlodipine Besylate (Amlodipine Besylate) 5 Mg Tab, 5 MG PO BID, (Reported) Atenolol (Tenormin) 50 Mg Tab, 50 MG PO DAILY, (Reported) Budesonide/Formoterol (Symbicort 160-4.5 Mcg/Act) 60 Puff/Inhaler Aers, 2 PUFF INH BID, (Reported) Cholecalciferol (Vitamin D) 1,000 Unit Tab, 1,000 UNIT PO DAILY, (Reported) Furosemide (Furosemide) 40 Mg Tab, 40 MG PO DAILY, (Reported) Levothyroxine Sodium (Synthroid) 88 Mcg Tab, 88 MCG PO DAILY, (Reported) Pantoprazole Sodium (Pantoprazole Sodium) 40 Mg Tab, 40 MG PO DAILY, (Reported) Quetiapine Fumerate (Seroquel) 25 Mg Tab, 25 MG PO TID, (Reported) Ursodiol (Ursodiol) 300 Mg Cap, 300 MG PO BID, (Reported) Allergies Coded Allergies: Nitrofurantoin (Verified Allergy, Unknown, 02/23/13) Penicillins (Verified Allergy, Unknown, 02/23/13) Penicillins Cross Reactors (Verified Allergy, Unknown, 02/23/13) Serotonin Reuptake Inhibitors (Verified Allergy, Unknown, LEXAPRO AND PAROXETINE, 02/23/13) Sulfa Drugs (Verified Allergy, Unknown, 02/23/13) Sulfa Drugs Cross Reactors (Verified Allergy, Unknown, 02/23/13) WANDA CASTANEDA MD Jun 19, 2017 04:27
== END 2017-05-24 19:15 | disposition home or self-care (01) | DRG 378 ==
LOC: EDBD 14:02 → M ED 14:02 → M ED INP 18:22 → M PCU 21:26 → OBSVTOIN 05-23 10:06
PROVIDERS: ADMIT Internal Medicine; ATTEND Internal Medicine
PROC: 30233N1 Transfusion of Nonautologous Red Blood Cells into Peripheral Vein, Percutaneous Approach (ICD-10-PCS; principal; 2017-05-22)
DX: K62.5 Hemorrhage of anus and rectum (principal); N17.9 Acute kidney failure, unspecified; E87.2 Acidosis; D64.9 Anemia, unspecified; I48.91 Unspecified atrial fibrillation; E03.9 Hypothyroidism, unspecified; N18.3 Chronic kidney disease, stage 3 (moderate); I12.9 Hypertensive chronic kidney disease with stage 1 through stage 4 chronic kidney disease, or unspecified chronic kidney disease; F41.9 Anxiety disorder, unspecified; M19.90 Unspecified osteoarthritis, unspecified site; Z87.891 Personal history of nicotine dependence; Z79.899 Other long term (current) drug therapy; Z79.01 Long term (current) use of anticoagulants; Z96.652 Presence of left artificial knee joint; Z88.2 Allergy status to sulfonamides; Z88.0 Allergy status to penicillin; Z88.8 Allergy status to other drugs, medicaments and biological substances

== ENCOUNTER → 2017-06-18 | Outpatient (REF) | payer MEDICARE ==
[~2017-06-18] MED LIST changes: +ASPI81TA21 PO; +DIPHCR TOP; +ENSULIQ10 PO; +FERR32TA PO; +LASI40TA PO; +MIRT15TA3 PO; +NYST10CR TOP; +SENN1TAB2 PO; +VITA400T15 PB; +VITA500T53 PO
[2017-06-18 13:39] LABS: MEAN CORPUSCULAR HEMOGLOBIN 24.7 pg (27.0-33.0); MEAN CORPUSCULAR HGB CONC 30.1 g/dl (32.0-36.5); RED CELL DISTRIBUTION WIDTH 17.6 % (11.5-14.5); WHITE BLOOD COUNT 6.9 K/mm3 (4.0-10.0)
[2017-06-18 13:57] LABS: ALBUMIN 2.7 GM/DL (3.2-5.2); ALBUMIN/GLOBULIN RATIO 0.71 (1.00-1.93); BILIRUBIN,TOTAL 0.6 MG/DL (0.2-1.0); CALCIUM LEVEL 9.9 MG/DL (8.8-10.2); CREATININE FOR GFR 1.28 MG/DL (0.55-1.02); GLOMERULAR FILTRATION RATE 41.8 (>32); POTASSIUM SERUM 3.9 MEQ/L (3.5-5.1); TOTAL PROTEIN 6.5 GM/DL (6.4-8.2)
== END ==
LOC: M SFHCPLAZ 10:57
PROVIDERS: ATTEND Nurse Practitioner Adult Health
DX: I48.2 Chronic atrial fibrillation (principal); E03.9 Hypothyroidism, unspecified; Z86.39 Personal history of other endocrine, nutritional and metabolic disease
CPT/HCPCS: 36415; 80053; 83970; 84443; 85027; G0463

== ENCOUNTER → 2017-06-25 | Outpatient (REF) | payer MEDICARE ==
[2017-06-25 17:09] LABS: RETIC HEMOGLOBIN CONTENT CHr 24.6 PG (24-36); RETICULOCYTE % 2.4 % (0.5-1.5)
[2017-06-25 17:11] LABS: FOLATE 7.7 NG/ML (>5.4); VITAMIN B12 LEVEL 443 PG/ML (247-911)
[2017-06-25 17:29] LABS: FERRITIN 24 NG/ML (8-252); TOTAL IRON BINDING CAPACITY 350 UG/DL (250-450); TOTAL PROTEIN 6.1 GM/DL (6.4-8.2)
[2017-06-26 09:34] LABS: ALBUMIN 2.89 GM/DL (3.29-5.55); ALBUMIN % 47.4 % (55.8-66.1)
[2017-06-26 09:35] LABS: GAMMA GLOBULIN % 22.1 % (11.1-18.8)
== END ==
LOC: M SFHCPLAZ 12:52
PROVIDERS: ATTEND Nurse Practitioner Adult Health
DX: D64.9 Anemia, unspecified (principal)

== ENCOUNTER 2017-07-05 19:41 | Inpatient (IN) | payer MEDICARE ==
[~2017-07-05] VITALS: Ht 162.6 cm; Wt 72.0 kg
[~2017-07-05 19:41] MED LIST changes: -ASPI81TA21 PO; -DIPHCR TOP; -ENSULIQ10 PO; -FERR32TA PO; -LASI40TA PO; -MIRT15TA3 PO; -NYST10CR TOP; -SENN1TAB2 PO
[2017-07-05] MEDS: SYMBICORT 160/4.5MCG INHALER 6GM INH SCH (21:00)
[2017-07-05] MEDS ORDERED: IPRATROPIUM 0.5MG/ALBUTEROL 2.5MG INH SOL UD 3ML (DUONEB)(J7620) As Ordered ONE (21:25)
[2017-07-05] MEDS ORDERED: FUROSEMIDE 40 MG/4 ML VIAL (J1940) As Ordered ONE (21:26)
[2017-07-05] MEDS ORDERED: FUROSEMIDE 40 MG/4 ML VIAL (J1940) IV ONE (21:30)
[2017-07-05] MEDS ORDERED: IPRATROPIUM 0.5MG/ALBUTEROL 2.5MG INH SOL UD 3ML (DUONEB)(J7620) NEB ONE (21:30)
[2017-07-05 21:46] LABS: VENOUS BASE EXCESS -0.2 (-2.0-2.0); VENOUS O2 SATURATION 81.3 % (60.0-80.0); VENOUS PARTIAL PRESSURE CO2 48.1 mmHg (38.0-50.0); VENOUS PARTIAL PRESSURE O2 50.8 mmHg (30.0-50.0); VENOUS STANDARD HCO3 24.1 MEQ/L
[2017-07-05 21:53] LABS: CALCIUM LEVEL 9.4 MG/DL (8.8-10.2); CREATININE FOR GFR 1.42 MG/DL (0.55-1.02); GLOMERULAR FILTRATION RATE 37.1 (>32); POTASSIUM SERUM 4.4 MEQ/L (3.5-5.1)
[2017-07-05 21:55] LABS: ADD MANUAL DIFFER YES; DIFF SLIDE NUMBER 313; MEAN CORPUSCULAR HEMOGLOBIN 21.8 pg (27.0-33.0); MEAN CORPUSCULAR HGB CONC 27.8 g/dl (32.0-36.5); MEAN CORPUSCULAR VOLUME 78.5 fl (80.0-96.0); PLATELET COUNT, AUTOMATED 191 k/mm3 (150-450); RED CELL DISTRIBUTION WIDTH 16.4 % (11.5-14.5); WHITE BLOOD COUNT 5.5 K/mm3 (4.0-10.0)
[2017-07-05 22:22] LABS: EOSINOPHILS 3 % (0-5)
[2017-07-05 22:23] LABS: ANISOCYTOSIS 1+; HYPOCHROMASIA 2+; MICROCYTOSIS 2+; POLYCHROMASIA 1+
[2017-07-05] MEDS ORDERED: ASPI81TA21 PO (22:39)
[2017-07-05] MEDS ORDERED: NYST10CR TOP (22:39)
[2017-07-05] MEDS ORDERED: MIRT15TA3 PO (22:39)
[2017-07-05] MEDS ORDERED: TRAM50TA2 PO (22:39)
[2017-07-05] MEDS ORDERED: ENSULIQ10 PO (22:39)
[2017-07-05] MEDS ORDERED: TYLE325T5 PO (22:39)
[2017-07-05] MEDS ORDERED: DESL5TAB11 SL (22:41)
[2017-07-06] VITALS (11 sets, daily range): BP systolic 119–156; BP diastolic 58–74
[2017-07-06] MEDS ORDERED: traMADol 50 MG TAB PO PRN (01:00)
[2017-07-06] MEDS ORDERED: DESLORATADINE 5 MG TAB (CLARINEX) PO PRN (01:00)
[2017-07-06] MEDS ORDERED: ONDANSETRON 4MG/2ML VIAL (J2405) IV PRN (01:15)
[2017-07-06] MEDS: amLODIPine 5 MG TAB PO SCH ×3 (02:08→21:00)
[2017-07-06] MEDS: SENOKOT S TAB PO SCH ×3 (02:09→21:00)
[2017-07-06] MEDS: QUEtiapine FUMARATE 25 MG TAB PO SCH ×4 (02:09→21:00)
[2017-07-06] MEDS: NYSTATIN 100,000 UNITS/GM TOPICAL PWD 15 GM TOP SCH ×3 (02:09→21:00)
[2017-07-06] MEDS: URSODIOL 300 MG CAP PO SCH ×3 (02:09→21:00)
--- NOTE | 2017-07-06 04:15 | HPE ---
DATE OF ADMISSION: 07/05/2017 TIME: Patient was seen at around 1 a.m. PRIMARY CARE PROVIDER: Ally Gregory at [facility]. CHIEF COMPLAINT: Lower extremity swelling. HISTORY OF PRESENT ILLNESS: 89-year-old female with a past medical history of diastolic heart failure, chronic anemia, possibly a gastrointestinal (GI) source, chronic hypoxic respiratory failure, was recently placed on 2 liters of nasal cannula, history of chronic atrial fibrillation, chronic kidney disease stage III, hypothyroidism, hypertension, osteoarthritis, anxiety, asthma and a history of primary biliary cirrhosis, presented with lower extremity swelling. Per patient, this is new to her. Started last Saturday. She stated that she bumped her right leg initially and 2 days later her left leg started swelling along with the right leg. Otherwise, patient appears to be a poor historian and also very hard of hearing. She also stated she had diarrhea 3 days ago, which was brown, however, the diarrhea has stopped now. Patient also had a history of anemia, was worked up in the past with endoscopy, both upper and lower scope and it was negative. She was here just a month ago and saw Dr. De La Vega as a information consultant and he recommended outpatient capsule camera to evaluate possible small bowel bleeding in the small intestine. It appears that it has not been done yet. Otherwise, patient denies any fever or chills, any chest pain, any increased trouble breathing. Denies any abdominal pains, nausea, vomiting. Denies any problem with urination. ALLERGIES: Patient is allergic to multiple medications including NITROFURANTOIN, PENICILLIN and CROSS REACTORS, SEROTONIN REUPTAKE INHIBITOR, SULFA DRUGS and CROSS REACTORS. HOME MEDICATIONS: Including: - Tylenol 650 mg one tablet by mouth every 6 hours as needed - amlodipine 5 mg one tablet by mouth twice a day - aspirin 81 mg one tablet by mouth daily - atenolol 50 mg one tablet by mouth daily - Symbicort 160/4.5 mcg two puff inhalation twice a day - vitamin D 1000 units by mouth daily - desloratadine 5 mg sublingually daily as needed - Ensure one by mouth daily as needed - furosemide 40 mg by mouth daily - Synthroid 88 mcg by mouth daily - mirtazapine 15 mg one tablet by mouth daily - nystatin cream topically every 2 days as needed - pantoprazole 40 mg by mouth daily - quetiapine 25 mg by mouth three times a day - tramadol 50 mg by mouth every 8 hours as needed - ursodiol 500 mg by mouth twice a day PAST MEDICAL HISTORY: Includin. Diastolic heart failure with preserved ejection fraction. Last echocardiogram was done in February 2017. Showed mild right ventricular hypertrophy, mild right atrial dilatation, inferior vena cava plethora, paradoxical septal motion, ejection fraction was 60%, severe left atrial dilatation, moderate aortic valve stenosis, moderate mitral annular calcification, mild mitral regurgitation. 2. Chronic anemia, possibly GI source. Had elective esophagogastroduodenoscopy (EGD) and colonoscopy. Patient was supposed to have a capsule camera evaluation for small bowel bleed. 3. Chronic hypoxic respiratory failure and asthma on 2 liters of nasal cannula. 4. Chronic atrial fibrillation. 5. Chronic kidney disease stage III. 6. Hypothyroidism. 7. Hypertension. 8. Osteoarthritis. 9. Anxiety with neurosis. 10. History of primary biliary cirrhosis. 11. Nerve compression. PAST SURGICAL HISTORY: Includin. Left knee repair. 2. Nerve compression of the leg. 3. Colonoscopy with Dr. Todd 04/13/2017. Shows polyps, which were removed. SOCIAL HISTORY: Patient is a resident at a nursing home home. Denies any smoking, drinking or recreational drug use. Patient stated that, however, she used to smoke 10 years ago. FAMILY HISTORY: Noncontributory. REVIEW OF SYSTEMS: GENERAL: Patient denies any recent traveling, any sick contact, any fever or chills, any weight loss. HEENT: Denies any changes with vision, smell, hearing or taste. CARDIOVASCULAR: Denies any chest pain. Admits to chronic shortness of breath and currently on 2 liters of oxygen 24 hours a day. PULMONARY: Denies any shortness of breath currently. However, patient does use 2 liters of nasal cannula and does have a history of asthma. GASTROINTESTINAL (GI): Admits to diarrhea 3 days ago, however, it has stopped. The diarrhea was brown in color. Denies any nausea, vomiting. Denies any blood in the stool. However, she did have several admissions this year for possible GI bleed and had a negative workup so far. MUSCULOSKELETAL: Patient has history of osteoarthritis. Denies any pain anywhere currently. Patient does use a walker and sometimes a wheelchair. HEMATOLOGY/ONCOLOGY: Denies any weight loss. Patient does have chronic anemia possibly from GI source. Did have polyps removed recently back in March this year with Dr. Todd. Was evaluated by Dr. De La Vega on last admission, recommended conservative therapy and outpatient capsule camera study. NEUROLOGICAL: Denies any weakness on any one side of her body. Denies any change of sensations. SKIN: Denies any ulcerations, lumps or bumps. However, she does have a rash on the abdomen due to candidiasis, has been using nystatin cream. PSYCHIATRIC: Admits to anxiety. PHYSICAL EXAMINATION: VITAL SIGNS: Temperature 96.8, pulse 62 irregular, respirations 18, blood pressure 147/68, patient is orthostatic negative, oxygen was saturating 96% on 2 liters of nasal cannula. GENERAL: Patient is a pleasant, but, however, at least mildly demented elderly female who was alert, awake, and oriented times three. Does not appear to be in distress lying comfortably in bed with head elevated at 30 degrees. HEENT: Normocephalic, atraumatic. Extraocular motor intact. Mucosa moist. NECK: Supple, no neck lymphadenopathy. Patient, however, does have jugular venous distention (JVD) extending all the way to the ear lobes. CARDIOVASCULAR: Irregularly irregular, 2/6 systolic heart murmur. LUNGS: Slight rales bilaterally. ABDOMEN: Positive bowel sounds, soft, nontender, nondistended. There was erythema on the lower abdomen at the skin fold. It appears to be slightly indurated and warm to touch. SKIN: Warm and dry. EXTREMITIES: There was 2+ pitting edema in the lower extremities extending to above the knee. NEUROLOGIC: Cranial nerves II-XII intact. No focal neurological deficit. LABORATORIES: WBC 5.5, hemoglobin 6.1, hematocrit 21.8 with a platelet count of 191, and MCV of 78.5. Sodium 144, potassium 4.4, chloride 109, bicarbonate 27, BUN 27, creatinine 1.42, GFR 37.1, fasting glucose 125, BNP 794, slightly increased compared to the past, lactic acid slightly increased at 2.1. Patient also had a venous blood gas shows pH 7.34, pCO2 48, pO2 50.8, saturation was 81.3% with base excess of negative 0.2. Again, that was venous blood gas. Blood culture times two is pending. Patient has three units of packed red blood cells (PRBC) ordered in the emergency room. One has been transfused. Patient had a portable chest x-ray done in the emergency room. Official result is pending. I examined the film myself. Looks the patchiness on the right lung field is slightly worse than in the past. ASSESSMENT AND PLAN: 89-year-old female with multiple comorbidities most significantly diastolic heart failure, chronic anemia, chronic kidney disease stage III, chronic hypoxic respiratory failure on 2 liters of nasal cannula, hypertension, asthma, primary biliary cirrhosis, presented with: 1. Increased lower extremity swelling. Likely secondary to decompensated heart failure. Patient does have jugular venous distention (JVD) as well and lung field does look slightly worse and there are slight rales. Patient was on Lasix 40 mg by mouth daily at home. Will increase that to Lasix 40 mg intravenous (IV) twice a day. Hold for negative 1.5 liters per 24 hours. Continue to monitor patient's intake and output and place patient on fluid restriction 2 liters fluid per day with no added salt. Patient did have a recent echocardiogram, therefore will not repeat. EKG only shows atrial fibrillation, left bundle branch block with ventricular rate of 66 beats per minute, which was similar to the past. 2. Acute on chronic anemia, macrocytic. Possibly from gastrointestinal (GI) etiology. Patient had a recent workup with a negative endoscopy and colonoscopy with Dr. Todd and was also evaluated by Dr. De La Vega on last admission. Recommended a capsule study. Continue to transfuse patient with 2 units of packed red blood cells (PRBC). Will monitor hemoglobin in the morning. At this point, patient did not report any black stool or redness in the stool. Will obtain fecal occult blood. Will elect conservative management at this point due to recent consultants for the past two admissions and if patient's hemoglobin appears to be unstable, will possibly consult a specialist, gastroenterology versus general surgery and continue to monitor patient. 3. Rash on lower abdomen. Possibly candidiasis. Continue nystatin. However, cannot completely rule out cellulitis. Consider doxycycline if lower abdomen rash does not improve. 4. Chronic hypoxic respiratory failure on 2 liters of nasal cannula oxygen at home. Also with history of asthma. Will continue DuoNebs as needed and continue home inhaler. 5. Recent diarrhea. However, it has stopped before patient came in. If diarrhea worsens while she is in the hospital, will possibly obtain a GI panel. 6. Chronic atrial fibrillation. Continue beta wolf. Patient is not on anticoagulant due to recent GI bleed and GI bleed anemia. 7. Chronic kidney disease stage III. Continue to monitor. Currently stable at baseline. 8. History of hypertension. Continue atenolol and Lasix with hold parameters and also amlodipine. 9. Osteoarthritis. Continue tramadol. 10. Anxiety with neurosis. Continue Remeron and also Seroquel. 11. Primary biliary cirrhosis. Continue ursodiol. 12. Deep venous thrombosis (DVT) prophylaxis on sequential compression devices (SCDs) and thromboembolism deterrent stockings (TEDS). Will hold any anticoagulants at this point due to possible GI bleed. 13. Fluid, electrolyte and diet. Will continue to monitor patient's electrolyte abnormalities and will continue patient on no added salt diet with a fluid restriction of 2 liters per 24 hours. DISPOSITION: Patient's main concern at this time is the lower extremity edema. Will continue diuresis and the lower abdomen rash appeared to be concerning as well. Possibly need to start antibiotics if does not improve with nystatin. The rash possibly will improve with diuresis as well due to possibly caused by edema. Otherwise, will continue to monitor intake and output. Continue to transfuse patient. Possibly consult specialist if hemoglobin and hematocrit does not appear to be stable. Patient has been discussed with attending doctor, Dr. Patricia. My preceptor for this patient encounter was Dr. Rahul Patricia. The preceptor was physically present in the building during the encounter and was fully available as needed. All aspects of the patient interview, examination, medical decision making process, and medical care plan development were reviewed and approved by the preceptor. The preceptor is aware and concurs with the plan as stated in the body of this note and will attest to such by his/her co-signature.
--- NOTE | 2017-07-06 08:24 | ECGEPIP ---
Stationary ECG Study [facility] - ED Test Date: 2017-07-05 Pat Name: SHILPA TINSLEY Department: Room: [place] [address] Gender: F Soa Architect: anne : [id number] Requested By: MAYA Chand Order Number: [id number] Reading MD: Roxie Muniz Measurements Intervals Charlo Rate: 66 P: ME: 0 QRS: -11 QRSD: 157 T: 140 QT: 450 QTc: 475 Interpretive Statements ATRIAL FIBRILLATION LEFT BUNDLE BRANCH BLOCK SIMILAR 05/22/17 Electronically Signed On 07-06-2017 8:23:44 EDT by Roixe Muniz
--- NOTE | 2017-07-06 08:39 | REP ---
Duplex extremity venous ultrasound: Bilateral lower extremities. History: Increased swelling of the legs. Findings: The deep veins are anechoic and fully compressible from the groin to the popliteal fossa in the left and the right lower extremity. Color flow imaging is homogeneous. Spectral Doppler interrogation demonstrates intact respiratory variation in flow and normal manual augmentation of flow. There is no evidence of deep vein thrombosis. Impression: Negative bilateral lower extremity duplex venous ultrasound. No evidence of deep vein thrombosis. Signed by Max Mcelroy MD 07/06/2017 08:31 A
--- NOTE | 2017-07-06 08:44 | REP ---
Portable chest x-ray: Semi-erect AP view: History: Dyspnea and cough. Comparison study: 05/22/2017. Findings: EKG electrodes and oxygen delivery tubing are seen. Moderate cardiomegaly is again observed. Pulmonary vasculature is cephalized and there is vascular congestion and prominent interstitial markings suggesting interstitial edema. No pleural effusion seen. Impression: CHF pattern. Signed by Max Mcelroy MD 07/06/2017 11:06 A
[2017-07-06 08:48] LABS: BASO # 0.1 K/mm3 (0.0-0.2); EOS # 0.3 K/mm3 (0.0-0.50); EOS % 5.8 % (0.0-3.0); LARGE UNSTAINED CELL # 0.2 K/mm3 (0.0-0.4); LARGE UNSTAINED CELL % 3.1 % (0.0-4.0); LYMPH # 1.1 K/mm3 (1.5-4.5); MEAN CORPUSCULAR HEMOGLOBIN 24.6 pg (27.0-33.0); MEAN CORPUSCULAR HGB CONC 31.1 g/dl (32.0-36.5); MEAN CORPUSCULAR VOLUME 79.1 fl (80.0-96.0); MONO # 0.7 K/mm3 (0.0-0.8); MONO % 11.9 % (0.0-5.0); NEUTROPHILS # 3.7 K/mm3 (1.8-7.7); NEUTROPHILS % 63.1 % (36.0-66.0); PLATELET COUNT, AUTOMATED 170 k/mm3 (150-450); RED CELL DISTRIBUTION WIDTH 16.4 % (11.5-14.5); WHITE BLOOD COUNT 5.9 K/mm3 (4.0-10.0)
[2017-07-06 08:56] LABS: INR 1.09
[2017-07-06] MEDS: PANTOPRAZOLE 40MG TAB (PROTONIX) PO SCH (08:58)
[2017-07-06] MEDS: ATENOLOL 50 MG TAB PO SCH (08:59)
[2017-07-06] MEDS: MIRTAZAPINE 15 MG TAB PO SCH (08:59)
[2017-07-06] MEDS: LEVOTHYROXINE 88MCG TABLET (0.088 MG) PO SCH (08:59)
[2017-07-06] MEDS: VITAMIN D 1,000 INTERNATIONAL UNITS TABLET PO SCH (08:59)
[2017-07-06] MEDS ORDERED: LEVOTHYROXINE 88MCG TABLET (0.088 MG) PO SCH (09:00)
[2017-07-06 09:05] LABS: ADD MORPHOLOGY? YES
[2017-07-06 09:16] LABS: CREATININE FOR GFR 1.29 MG/DL (0.55-1.02); GLOMERULAR FILTRATION RATE 41.4 (>32); MAGNESIUM LEVEL 1.8 MG/DL (1.8-2.4)
[2017-07-06 09:18] LABS: ANISOCYTOSIS 1+; HYPOCHROMASIA 3+
[2017-07-06 09:19] LABS: MICROCYTOSIS 1+
[2017-07-06] MEDS: SYMBICORT 160/4.5MCG INHALER 6GM INH SCH ×2 (10:33→21:00)
--- NOTE | 2017-07-06 10:45 | IPN ---
DATE: 07/06/2017 89-year-old female seen at bedside. No overnight issues reported. She is admitted for congestive heart failure exacerbation. She denies chest pain. She states that she is only feeling tired right now. No nausea or vomiting. She is tolerating her breakfast. OBJECTIVE: Temperature is 98.1. Pulse is 72. Respiratory rate is 16. Blood pressure (BP) is 156/70. SpO2 is 97% on 1 liter. General: The patient appears to be in no acute distress, is alert, oriented. HEENT: Unremarkable. Lungs: Clear. Heart: Regular rate and rhythm. Abdomen: Soft. Extremities: She does have some trace edema at the ankles. No calf tenderness. LABORATORY DATA: White count 5.9, hemoglobin 8.8, platelets are 170,000. Sodium 143, potassium 4.0, chloride 109, bicarbonate 27, anion gap 7, BUN is 25, creatinine is 1.29 (down from 1.42). Lactic acid on admission 2.1, repeat 2.0. Magnesium 1.8. BNP is 794. INR 1.09. He did receive 2 units of packed red blood cells due to the nature of her acute anemia. ASSESSMENT AND PLAN: 1. Acute on chronic anemia. Rule out gastrointestinal (GI) source. However, she has had a pretty thorough workup with GI recently with esophagogastroduodenoscopy (EGD), colonoscopy and is likely needing a pill endoscopy. She responded well to the 2 units packed red blood cells. We will continue to monitor her hemoglobin and hematocrit. 2. Increased lower extremity swelling. Likely secondary to decompensated heart failure. She did have an elevated brain natriuretic peptide (BNP). She is on net negative Lasix 40 mg IV twice a day IV for a net negative of 1.5 liters a day. We will continue to monitor her renal function as well as her intakes and outputs, and clinically daily to see how she is responding to the Lasix. Fluid restriction is in place. 3. Chronic atrial fibrillation. She is rate controlled. Continue on beta-wolf. Anticoagulation is not indicated due to risk of GI bleed and anemia. 4. Abdominal rash. Likely candidiasis. Continue with nystatin. I will continue to monitor. 5. Chronic hypoxic respiratory failure. On 2 liters of oxygen. DuoNebs as needed. 5. Recent diarrhea. Consider GI panel. 6. Chronic kidney disease (CKD), stage III. Her creatinine is at baseline. We will continue to monitor 7. History of hypertension. We will continue to monitor her blood pressure. Continue atenolol, Lasix and amlodipine with hold parameters. 8. Osteoarthritis. Stable on tramadol. 9. Anxiety and neurosis. Continue Remeron and Seroquel. 10. Primary biliary cirrhosis. Continue ursodiol. 11. Deep venous thrombosis (DVT) prophylaxis. Thromboembolism deterrents (TEDs) and sequential since she is at risk for bleeding on any heparin products or anticoagulants. DISPOSITION: We will continue to follow her on a daily basis. I did request physical therapy (PT) to see the patient due to her weakness. She lives at a residential home, and my understanding, she is in assisted living so will need to see if she will be able to return to those living conditions. Her primary care provider is GUIDO Amaro.
[2017-07-06] MEDS: FUROSEMIDE 40 MG/4 ML VIAL (J1940) IV SCH (11:48)
[2017-07-06] MEDS: LORazepam 2 MG/ML VIAL (J2060) IV PRN (21:09)
[2017-07-06] MEDS ORDERED: HALOPERIDOL 5 MG/ML VIAL (J1630) As Ordered ONE (22:50)
[2017-07-06] MEDS: VANCOMYCIN HCL 1,000 MG, VIAL MATE ADAPTER 1 EACH in D5W 250 ML IV SCH (23:00)
[2017-07-06] MEDS ORDERED: HALOPERIDOL 5 MG/ML VIAL (J1630) IV PRN (23:00)
--- NOTE | 2017-07-06 23:02 | PHACANCOPD ---
PHARMACY VANCOMYCIN DOSING Pt Demographics Demographics Patient Age:89 , Weight:79.300 , Gender: female Adjusted Body Weight Date: 07/06/17, Adjusted Body Weight: [64] Kg Events Past 24 Hours Events Past 24 Hours: NO: Dialysis, Diuretic Therapy, Change in CrCl, Fever, Elevation in WBC, Pending Diagnostics, Pending Procedures, Other Vancomycin Vancomycin Target Ranges: 15-20 mcg/ml Vancomycin Load Y/N: No Load Dose Date Time Vancomycin Load Dose: Date: Time: Vancomycin Dose Date: 07/06/17. Current Vancomycin Dose: [1000MG Q24H] Intermittent Dosing?: No Labs Labs Item Value Date Time White Blood Count 5.9 K/mm3 07/06/17830 Creatinine 1.29 MG/DL H 07/06/17830 Blood Urea Nitrogen 25 MG/DL H 07/06/17830 Vital Signs Label Value Date Time Patient Temperature 98.2 degrees F 07/06/172020 Temperature Source Temporal 07/06/172020 Micro Microbiology 07/06/17 Blood Culture - Preliminary, Resulted 07/05/17 Blood Culture - Preliminary, Resulted No growth after 24 hours . All specim... Creatinine Clearance Date:07/06/17. Creatinine Clearance: [27]. Pending Labs trough 08-21 @2200 Assessment and Plan Maintaining Current Dose?: Yes Reason for dose change: No Dose Change Pharmacist Note Pharmacist Note Date: 07/06/17. Pharmacist note:Dosed at 1000mg q24h with a trough ordered for 08 -21 @2200. Will continue to monitor and make adjustments as needed. SERGIO TSE PHARMACY Jul 06, 2017 23:02
[2017-07-07 00:50] VITALS: BP 135/62
[2017-07-07] MEDS: LORazepam 2 MG/ML VIAL (J2060) IV PRN ×2 (03:14→21:41)
[2017-07-07 04:31] VITALS: BP 144/73
[2017-07-07 05:57] LABS: ADD MANUAL DIFFER YES; MEAN CORPUSCULAR HEMOGLOBIN 24.8 pg (27.0-33.0); MEAN CORPUSCULAR HGB CONC 31.1 g/dl (32.0-36.5); MEAN CORPUSCULAR VOLUME 79.8 fl (80.0-96.0); PLATELET COUNT, AUTOMATED 172 k/mm3 (150-450); RED CELL DISTRIBUTION WIDTH 16.6 % (11.5-14.5); WHITE BLOOD COUNT 5.5 K/mm3 (4.0-10.0)
[2017-07-07] MEDS: LEVOTHYROXINE 88MCG TABLET (0.088 MG) PO SCH (06:00)
[2017-07-07 06:10] LABS: CALCIUM LEVEL 9.1 MG/DL (8.8-10.2); CREATININE FOR GFR 1.3 MG/DL (0.55-1.02); GLOMERULAR FILTRATION RATE 41.1 (>32); POTASSIUM SERUM 3.5 MEQ/L (3.5-5.1)
--- NOTE | 2017-07-07 06:14 | IPNPDOC ---
Text Note Date of Service The patient was seen on 07/07/17. NOTE Patient was agitated and confused over night. Patient stated she was 23 and she didn't believe she was in hospital. She was slapping nurse's hands and removing oxygen and trying to leave. Therefore Ativan 1mg PRN was initially started, however patient continued to be agitated after an hour therefore haldol 1mg was started as well. Patient was placed on a sitter. Also nurse reported that there was a positive blood culture for gram pos cocci, therefore Vanco was started and will deescalate or stop if this turns out to be contamination. Repeat blood cultures were ordered, however it was not done, possibly due to patient was not cooperating. In addition, later in the night, nurse reported patient was retaining urine > 600 ml therefore straight cath was ordered. This morning I have also added urinalysis and urine culture to see if patient's psychosis is related to urinary infectious etiology. Patient has been discussed with attending Dr. Patricia. VS,Nolan, I+O VS, Nolan, I+O Laboratory Tests 07/06/17 08:31 Red Blood Count 3.56 L, Mean Corpuscular Volume 79.1 L, Mean Corpuscular Hemoglobin 24.6 L, Mean Corpuscular Hemoglobin Concent 31.1 L, Red Cell Distribution Width 16.4 H, Neutrophils (%) (Auto) 63.1, Lymphocytes (%) (Auto) 15.0 L, Monocytes (%) (Auto) 11.9 H, Eosinophils (%) (Auto) 5.8 H, Basophils (% ) (Auto) 1.0, Neutrophils # (Auto) 3.7, Lymphocytes # (Auto) 1.1 L, Monocytes # (Auto) 0.7, Eosinophils # (Auto) 0.3, Basophils # (Auto) 0.1, Calcium Level 9.0 07/07/17 04:52 Red Blood Count 3.67 L, Mean Corpuscular Volume 79.8 L, Mean Corpuscular Hemoglobin 24.8 L, Mean Corpuscular Hemoglobin Concent 31.1 L, Red Cell Distribution Width 16.6 H Vital Signs Date Time Temp Pulse Resp B/P (MAP) Pulse Ox O2 Delivery O2 Flow Rate FiO2 07/07/17 00:50 98.4 72 18 135/62 (86) 94 Nasal Cannula 2.0 I&O- Last 24 Hours up to 6 AM 07/07/17 06:00 Intake Total 1290 ml Output Total 500 ml Balance 790 ml GME ATTESTATION GME ATTESTATION My preceptor for this patient encounter was physically present in the building during the encounter and was fully available. As needed, all aspects of the patient interview, examination, medical decision making process, and medical care plan development were reviewed and approved by the preceptor. Preceptor is aware and concurs with the plan as stated in the body of this note and will attest to such by his/her cosignature. KOLE PRITCHARD DO Jul 07, 2017 06:13
[2017-07-07 06:46] LABS: BASOPHILS 3 % (0-4); EOSINOPHILS 5 % (0-5)
[2017-07-07 06:47] LABS: ANISOCYTOSIS 1+; HYPOCHROMASIA 3+
[2017-07-07 06:48] LABS: MICROCYTOSIS 1+
--- NOTE | 2017-07-07 08:44 | IPN ---
DATE OF SERVICE: 07/07/2017 An 89-year-old female seen at bedside. Apparently, had some acute delirium and agitation through the night last night, which she has received some Ativan and Haldol for, but she appears to be resting comfortably now. She does have a one-to-one sitter in place, and no further issues were noted this morning. OBJECTIVE: Temperature is 97.4, pulse 68, respiratory rate is 18, blood pressure (BP) 144/73, SPO2 is 91% on 2 liters. General: The patient appears to be in no acute distress. She is slightly and pleasantly confused. HEENT: Unremarkable. Lungs: Clear. Heart: Regular rate and rhythm. Abdomen: Soft. Extremities: No edema. No calf tenderness. LABORATORY DATA: White count is 5.5, hemoglobin 9.1, platelets 172,000. Sodium 143, potassium 3.5, chloride 107, bicarbonate 28, anion gap 8, BUN is 22, creatinine is 1.30, glucose is 80. Blood cultures pending times two. Urine culture is pending. Ultrasound lower extremities done yesterday, negative for deep venous thrombosis (DVT). ASSESSMENT AND PLAN: 1. Acute on chronic anemia, rule out gastrointestinal (GI) source. She received 2 units of packed red blood cells, and her hemoglobin and hematocrit remained stable. 2. Increased lower extremity swelling. Continue on intravenous (IV) Lasix for net negative 1.5 liters a day. This likely is decompensated congestive heart failure. We have fluid restricted her and will continue this plan for another 24 hours. 3. Chronic atrial fibrillation. She is rate controlled. Continue beta wolf. Anticoagulation is not indicated due to risk of recurrent GI bleed and anemia. 4. Abdominal rash, likely candidiasis. Continue to use topical Nystatin. 5. Chronic hypoxic respiratory failure, on 2 liters of oxygen. Continue DuoNebs. 6. Recent diarrhea, which is resolved. Consider GI panel if this should recur. 7. Chronic kidney disease (CKD) stage III, creatinine is at baseline. 8. History of hypertension. Continue to monitor her blood pressure. Continue atenolol, Lasix, amlodipine with hold parameters. 9. Osteoarthritis, stable on tramadol. 10. Anxiety neurosis. Continue Remeron, Seroquel, and Ativan/Haldol as needed breakthrough. She likely is having some increased delirium due to not be in her normal surroundings. 11. History of primary biliary cirrhosis. Continue ursodiol. 12. Deep venous thrombosis (DVT) prophylaxis. Thromboembolic deterrents (TEDs) and sequentials. DISPOSITION: Will continue to follow on a daily basis. Physical therapy for increased weakness. Repeat her hemoglobin and hematocrit. If she is doing well tomorrow, she may be ready for discharge back to her previous living situation.
[2017-07-07] MEDS: SYMBICORT 160/4.5MCG INHALER 6GM INH SCH ×2 (09:00→21:00)
[2017-07-07] MEDS: URSODIOL 300 MG CAP PO SCH ×2 (10:17→21:00)
[2017-07-07] MEDS: amLODIPine 5 MG TAB PO SCH ×2 (10:17→21:00)
[2017-07-07] MEDS: MIRTAZAPINE 15 MG TAB PO SCH (10:18)
[2017-07-07] MEDS: QUEtiapine FUMARATE 25 MG TAB PO SCH ×3 (10:18→21:00)
[2017-07-07] MEDS: PANTOPRAZOLE 40MG TAB (PROTONIX) PO SCH (10:18)
[2017-07-07] MEDS: ATENOLOL 50 MG TAB PO SCH (10:18)
[2017-07-07] MEDS: VITAMIN D 1,000 INTERNATIONAL UNITS TABLET PO SCH (10:18)
[2017-07-07] MEDS: SENOKOT S TAB PO SCH ×2 (10:18→21:00)
[2017-07-07] MEDS: NYSTATIN 100,000 UNITS/GM TOPICAL PWD 15 GM TOP SCH ×2 (10:19→21:00)
[2017-07-07 12:00] VITALS: BP 137/70
[2017-07-07] MEDS: FUROSEMIDE 40 MG/4 ML VIAL (J1940) IV SCH ×3 (12:58→23:30)
[2017-07-07 16:00] VITALS: BP 145/65
[2017-07-07 20:00] VITALS: BP 168/78
[2017-07-07] MEDS: VANCOMYCIN HCL 1,000 MG, VIAL MATE ADAPTER 1 EACH in D5W 250 ML IV SCH (22:13)
[2017-07-07 23:59] VITALS: BP 132/66
[2017-07-08 03:47] VITALS: BP 132/63
[2017-07-08] MEDS: LORazepam 2 MG/ML VIAL (J2060) IV PRN (05:12)
[2017-07-08 05:35] LABS: BASO # 0.1 K/mm3 (0.0-0.2); BASO % 1.3 % (0.0-1.0); EOS # 0.4 K/mm3 (0.0-0.50); EOS % 5.9 % (0.0-3.0); LARGE UNSTAINED CELL # 0.3 K/mm3 (0.0-0.4); LARGE UNSTAINED CELL % 3.7 % (0.0-4.0); LYMPH # 1.4 K/mm3 (1.5-4.5); MEAN CORPUSCULAR HEMOGLOBIN 24.4 pg (27.0-33.0); MEAN CORPUSCULAR HGB CONC 30.6 g/dl (32.0-36.5); MEAN CORPUSCULAR VOLUME 79.9 fl (80.0-96.0); MONO # 0.9 K/mm3 (0.0-0.8); MONO % 12.4 % (0.0-5.0); NEUTROPHILS # 4.1 K/mm3 (1.8-7.7); NEUTROPHILS % 59.7 % (36.0-66.0); PLATELET COUNT, AUTOMATED 163 k/mm3 (150-450); RED CELL DISTRIBUTION WIDTH 17.2 % (11.5-14.5); WHITE BLOOD COUNT 6.8 K/mm3 (4.0-10.0)
[2017-07-08 06:00] LABS: CALCIUM LEVEL 9.2 MG/DL (8.8-10.2); CREATININE FOR GFR 1.16 MG/DL (0.55-1.02); GLOMERULAR FILTRATION RATE 46.8 (>32); POTASSIUM SERUM 3.9 MEQ/L (3.5-5.1)
[2017-07-08] MEDS: LEVOTHYROXINE 88MCG TABLET (0.088 MG) PO SCH (06:00)
[2017-07-08] MEDS: SYMBICORT 160/4.5MCG INHALER 6GM INH SCH ×2 (07:59→19:33)
[2017-07-08 08:00] VITALS: BP 158/73
[2017-07-08] MEDS: PANTOPRAZOLE 40MG TAB (PROTONIX) PO SCH (09:53)
[2017-07-08] MEDS: ATENOLOL 50 MG TAB PO SCH (09:54)
[2017-07-08] MEDS: amLODIPine 5 MG TAB PO SCH ×2 (09:54→20:28)
[2017-07-08] MEDS: QUEtiapine FUMARATE 25 MG TAB PO SCH ×3 (09:54→20:24)
[2017-07-08] MEDS: SENOKOT S TAB PO SCH ×2 (09:54→20:24)
[2017-07-08] MEDS: VITAMIN D 1,000 INTERNATIONAL UNITS TABLET PO SCH (09:54)
[2017-07-08] MEDS: MIRTAZAPINE 15 MG TAB PO SCH (09:54)
[2017-07-08] MEDS: NYSTATIN 100,000 UNITS/GM TOPICAL PWD 15 GM TOP SCH ×2 (10:00→20:25)
--- NOTE | 2017-07-08 10:27 | IPN ---
DATE: 07/08/2017 ATTENDING PHYSICIAN: Dr. Behzad Macario. Yomaira is seen in progressive care unit (PCU) acute on chronic anemia for a gastrointestinal (GI) source, atrial fibrillation with controlled ventricular response, decompensated congestive heart failure, chronic hypoxic respiratory failure, chronic kidney disease, hypertension, behavioral disturbance with anxiety requiring a sitter. Things seem stable today. She denies any shortness of breath. She had almost 1 liter in diuresis yesterday. She is lying flat in bed without any dyspnea. PHYSICAL EXAMINATION: 150/73, pulse 77, 92% Oxygen saturation on 3 liters. General appearance: Elderly, cantankerous. She has some jugular venous distention present. Lungs have decreased breath sounds and some rales to the bases. Heart irregular rate and rhythm, 1/6 systolic ejection murmur. Abdomen soft, nontender. No masses. No peripheral edema. LABS: Electrolytes are unchanged, creatinine is 1.1, hemoglobin stable at 9.1. IMPRESSION: 1. Decompensated congestive heart failure: Continue her current dose of furosemide. She has having a good diuresis on this. Once her BUN/creatinine a take a bump, I would put her back on her usual dose of oral Lasix. Morning labs have been ordered. 2. Atrial fibrillation rate controlled: No anticoagulation due to GI bleeding. 3. Chronic respiratory failure: Oxygen saturations at baseline. 4. Chronic kidney disease stage III: Creatinine is at baseline. 5. Anxiety neurosis with a behavioral disturbance. I think she could use another sitter. She is arguing with her sitter about getting out of bed. Today, I guess she could go to the bathroom by herself but she will be at risk for further falls. 6. Primary biliary cirrhosis: Continue ursodiol. 7. She is vancomycin. I do not see in the progress notes why she is on this. She did have a positive blood culture but it looks like it was a contaminate with Streptococcus salivarius. She does have a urine culture that is pending. Hopefully, this can be discontinued tomorrow. DISPOSITION: This will depend on her home safety evaluation tomorrow.
[2017-07-08] MEDS: FUROSEMIDE 40 MG/4 ML VIAL (J1940) IV SCH ×2 (11:37→23:23)
[2017-07-08] MEDS: URSODIOL 300 MG CAP PO SCH ×2 (11:38→20:24)
[2017-07-08 12:00] VITALS: BP 121/57
[2017-07-08] MEDS ORDERED: SLF 3 ML SYR IV PRN (13:30)
[2017-07-08] MEDS: SLF 3 ML SYR IV SCH ×2 (14:22→20:25)
[2017-07-08 16:00] VITALS: BP 125/58
[2017-07-08 20:00] VITALS: BP 120/58
[2017-07-08] MEDS: VANCOMYCIN HCL 1,000 MG, VIAL MATE ADAPTER 1 EACH in D5W 250 ML IV SCH (23:23)
[2017-07-09] VITALS (7 sets, daily range): BP systolic 123–167; BP diastolic 56–71
[2017-07-09] MEDS: SLF 3 ML SYR IV SCH ×3 (06:13→20:44)
[2017-07-09] MEDS: LEVOTHYROXINE 88MCG TABLET (0.088 MG) PO SCH (06:13)
[2017-07-09 06:17] LABS: CALCIUM LEVEL 9.7 MG/DL (8.8-10.2); CREATININE FOR GFR 1.35 MG/DL (0.55-1.02); GLOMERULAR FILTRATION RATE 39.3 (>32); POTASSIUM SERUM 3.6 MEQ/L (3.5-5.1)
[2017-07-09 06:18] LABS: BASO # 0.1 K/mm3 (0.0-0.2); BASO % 1.7 % (0.0-1.0); EOS # 0.4 K/mm3 (0.0-0.50); EOS % 6.8 % (0.0-3.0); LARGE UNSTAINED CELL # 0.3 K/mm3 (0.0-0.4); LARGE UNSTAINED CELL % 4.1 % (0.0-4.0); LYMPH % 15.9 % (24.0-44.0); MEAN CORPUSCULAR HEMOGLOBIN 24.4 pg (27.0-33.0); MEAN CORPUSCULAR HGB CONC 30.8 g/dl (32.0-36.5); MEAN CORPUSCULAR VOLUME 79.1 fl (80.0-96.0); MONO # 0.7 K/mm3 (0.0-0.8); MONO % 11.9 % (0.0-5.0); NEUTROPHILS # 3.7 K/mm3 (1.8-7.7); NEUTROPHILS % 59.5 % (36.0-66.0); PLATELET COUNT, AUTOMATED 153 k/mm3 (150-450); RED CELL DISTRIBUTION WIDTH 17.1 % (11.5-14.5); WHITE BLOOD COUNT 6.2 K/mm3 (4.0-10.0)
[2017-07-09] MEDS: ATENOLOL 50 MG TAB PO SCH (08:26)
[2017-07-09] MEDS: PANTOPRAZOLE 40MG TAB (PROTONIX) PO SCH (08:26)
[2017-07-09] MEDS: amLODIPine 5 MG TAB PO SCH ×2 (08:26→20:42)
[2017-07-09] MEDS: VITAMIN D 1,000 INTERNATIONAL UNITS TABLET PO SCH (08:26)
[2017-07-09] MEDS: URSODIOL 300 MG CAP PO SCH ×2 (08:26→20:42)
[2017-07-09] MEDS: NYSTATIN 100,000 UNITS/GM TOPICAL PWD 15 GM TOP SCH ×2 (08:27→21:00)
[2017-07-09] MEDS: QUEtiapine FUMARATE 25 MG TAB PO SCH ×3 (08:27→20:42)
[2017-07-09] MEDS: MIRTAZAPINE 15 MG TAB PO SCH (08:27)
[2017-07-09] MEDS: SENOKOT S TAB PO SCH ×2 (08:27→21:00)
[2017-07-09] MEDS: SYMBICORT 160/4.5MCG INHALER 6GM INH SCH ×2 (09:16→20:35)
--- NOTE | 2017-07-09 13:09 | IPNPDOC ---
Subjective Date Seen The patient was seen on 07/09/17. Subjective Chief Complaint/HPI The patient is a 89-year-old female admitted with a reason for visit of Acute On Chronic Chf. Events since last encounter feeling better this am , acute delirium resolved, denied sob , denied any chest pain , leg swelling better, no cough or phlegm. Objective Physical Examination General Exam: Positive: Alert, Cooperative, No Acute Distress Eye Exam: Positive: PERRLA, Conjunctiva & lids normal, EOMI, Negative: Sclera icteric ENT Exam: Positive: Atraumatic, Mucous membr. moist/pink, Pharynx Normal Neck Exam: Positive: Supple, Negative: JVD, thyromegaly Chest Exam: Positive: Clear to auscultation, Normal air movement Heart Exam: Positive: Rate Normal, Regular Rhythm, Normal S1, Normal S2, Negative: Murmurs, Rubs Telemetry: Positive: No significant arrhythmia Abdomen Exam: Positive: Normal bowel sounds, Soft, Negative: Tenderness, Hepatospenomegaly Extremity Exam: Positive: Normal pulses, Negative: Clubbing, Cyanosis, Edema Assessment /Plan Problems (1) Delirium Status: Resolved Problem Text: possibly due to severe anemia and chf exacerbation with hypoxia. now resolved will take off sitter. (2) Acute on chronic congestive heart failure Status: Acute Problem Text: will continue with lasix and fluid restriction (3) Anemia Status: Acute Problem Text: acute on chronic etiology not yet determined. no bleeding at present has iron deficiency so on supplementation had egd and colonoscopy in march 2017 no no bleeding source identified thaught at that time to be due to oral anticoagulants since then has been taken off oral anticoagulant. partly has anemia of chronic disease due to ckd with iron deficiency however also has m spike in electrophoresis and in serum immunofixation has igg kappa so may also have plasma cell disorder. will refer patient to hematology on discharge. (4) Chronic respiratory failure with hypoxia Status: Chronic (5) Chronic atrial fibrillation Status: Chronic (6) Primary biliary cirrhosis Status: Chronic (7) Hypothyroidism Status: Chronic (8) HTN (hypertension) Status: Chronic (9) Anxiety Status: Chronic (10) Chronic kidney disease, stage 3 Status: Chronic (11) Pulmonary hypertension Status: Chronic (12) Dysthymia Status: Chronic Plan/VTE VTE Prophylaxis Ordered?: Yes VS, I&O, 24H, Fishbone Vital Signs/I&O Vital Signs Date Time Temp Pulse Resp B/P (MAP) Pulse Ox O2 Delivery O2 Flow Rate FiO2 07/09/17 09:26 Nasal Cannula 3.0 07/09/17 08:00 98.4 80 20 128/58 (81) 97 I&O- Last 24 Hours up to 6 AM 07/09/17 06:00 Intake Total 1230 ml Output Total 1900 ml Balance -670 ml Laboratory Data 24H LABS Laboratory Tests 2 07/08/17 22:15: Vancomycin Level Trough 12.5 07/09/17 05:44: White Blood Count 6.2, Red Blood Count 3.57L, Hemoglobin 8.7L, Hematocrit 28.3L , Mean Corpuscular Volume 79.1L, Mean Corpuscular Hemoglobin 24.4L, Mean Corpuscular Hemoglobin Concent 30.8L, Red Cell Distribution Width 17.1H, Platelet Count 153, Neutrophils (%) (Auto) 59.5, Lymphocytes (%) (Auto) 15.9L, Monocytes (%) (Auto) 11.9H, Eosinophils (%) (Auto) 6.8H, Basophils (%) (Auto) 1.7H, Neutrophils # (Auto) 3.7, Lymphocytes # (Auto) 1.0L, Monocytes # (Auto) 0.7, Eosinophils # (Auto) 0.4, Basophils # (Auto) 0.1, Large Unclassified Cells % 4.1H, Large Unclassified Cells # 0.3, Anion Gap 4L, Glomerular Filtration Rate 39.3, Blood Urea Nitrogen 19H, Creatinine 1.35H, Sodium Level 140, Potassium Level 3.6, Chloride Level 104, Carbon Dioxide Level 32, Calcium Level 9.7 CBC/BMP Laboratory Tests 07/09/17 05:44 Red Blood Count 3.57 L, Mean Corpuscular Volume 79.1 L, Mean Corpuscular Hemoglobin 24.4 L, Mean Corpuscular Hemoglobin Concent 30.8 L, Red Cell Distribution Width 17.1 H, Neutrophils (%) (Auto) 59.5, Lymphocytes (%) (Auto) 15.9 L, Monocytes (%) (Auto) 11.9 H, Eosinophils (%) (Auto) 6.8 H, Basophils (% ) (Auto) 1.7 H, Neutrophils # (Auto) 3.7, Lymphocytes # (Auto) 1.0 L, Monocytes # (Auto) 0.7, Eosinophils # (Auto) 0.4, Basophils # (Auto) 0.1, Calcium Level 9.7 Microbiology Microbiology 07/06/17 Blood Culture - Final, Complete Streptococcus Salivarius 07/05/17 Blood Culture - Preliminary, Resulted No Growth after 72 hours. All specime... 07/07/17 Urine Culture, Received Pending MARIE ANDERSON MD Jul 09, 2017 13:09
[2017-07-09] MEDS: FUROSEMIDE 40 MG/4 ML VIAL (J1940) IV SCH ×2 (14:33→23:53)
[2017-07-09] MEDS ORDERED: VANCOMYCIN HCL 1,000 MG, VIAL MATE ADAPTER 1 EACH in D5W 250 ML IV SCH (16:00)
[2017-07-10 03:27] VITALS: BP 152/69
[2017-07-10] MEDS: LEVOTHYROXINE 88MCG TABLET (0.088 MG) PO SCH (05:32)
[2017-07-10] MEDS: SLF 3 ML SYR IV SCH ×3 (05:32→21:18)
[2017-07-10 05:41] LABS: BASO % 0.8 % (0.0-1.0); EOS # 0.3 K/mm3 (0.0-0.50); EOS % 5.8 % (0.0-3.0); LARGE UNSTAINED CELL # 0.2 K/mm3 (0.0-0.4); LARGE UNSTAINED CELL % 4.7 % (0.0-4.0); LYMPH # 0.6 K/mm3 (1.5-4.5); LYMPH % 13.7 % (24.0-44.0); MEAN CORPUSCULAR HEMOGLOBIN 24.5 pg (27.0-33.0); MEAN CORPUSCULAR HGB CONC 30.7 g/dl (32.0-36.5); MEAN CORPUSCULAR VOLUME 79.8 fl (80.0-96.0); MONO # 0.5 K/mm3 (0.0-0.8); MONO % 11.7 % (0.0-5.0); NEUTROPHILS # 2.9 K/mm3 (1.8-7.7); NEUTROPHILS % 63.3 % (36.0-66.0); PLATELET COUNT, AUTOMATED 132 k/mm3 (150-450); RED CELL DISTRIBUTION WIDTH 16.8 % (11.5-14.5); WHITE BLOOD COUNT 4.6 K/mm3 (4.0-10.0)
[2017-07-10 06:00] LABS: CALCIUM LEVEL 9.5 MG/DL (8.8-10.2); CREATININE FOR GFR 1.33 MG/DL (0.55-1.02); POTASSIUM SERUM 3.5 MEQ/L (3.5-5.1)
[2017-07-10 08:00] VITALS: BP 163/68
[2017-07-10] MEDS: SYMBICORT 160/4.5MCG INHALER 6GM INH SCH ×2 (08:37→19:57)
[2017-07-10] MEDS: LevoFLOXacin 250 MG TABLET PO SCH (08:58)
[2017-07-10] MEDS: QUEtiapine FUMARATE 25 MG TAB PO SCH ×3 (08:58→21:17)
[2017-07-10] MEDS: PANTOPRAZOLE 40MG TAB (PROTONIX) PO SCH (08:58)
[2017-07-10] MEDS: URSODIOL 300 MG CAP PO SCH ×2 (08:58→21:17)
[2017-07-10] MEDS: MIRTAZAPINE 15 MG TAB PO SCH (08:58)
[2017-07-10] MEDS: amLODIPine 5 MG TAB PO SCH ×2 (08:58→21:00)
[2017-07-10] MEDS: NYSTATIN 100,000 UNITS/GM TOPICAL PWD 15 GM TOP SCH ×2 (08:59→21:19)
[2017-07-10] MEDS: ATENOLOL 50 MG TAB PO SCH (08:59)
[2017-07-10] MEDS: SENOKOT S TAB PO SCH ×2 (08:59→21:18)
[2017-07-10] MEDS: VITAMIN D 1,000 INTERNATIONAL UNITS TABLET PO SCH (08:59)
[2017-07-10 09:50] VITALS: BP 150/66
--- NOTE | 2017-07-10 11:40 | IPNPDOC ---
Subjective Date Seen The patient was seen on 07/10/17. Subjective Chief Complaint/HPI The patient is a 89-year-old female admitted with a reason for visit of Acute On Chronic Chf. Events since last encounter no complaints today , feeling well. no fever or chills, no overt bleeding from anywhere. no dysuria or frequency of urination , no abdominal pain , nausea or vomiting Objective Physical Examination General Exam: Positive: Alert, Cooperative, No Acute Distress Eye Exam: Positive: PERRLA, Conjunctiva & lids normal, EOMI, Negative: Sclera icteric ENT Exam: Positive: Atraumatic, Mucous membr. moist/pink, Pharynx Normal Neck Exam: Positive: Supple, Negative: JVD, thyromegaly Chest Exam: Positive: Clear to auscultation, Normal air movement Heart Exam: Positive: Rate Normal, Regular Rhythm, Normal S1, Normal S2, Negative: Murmurs, Rubs Telemetry: Positive: No significant arrhythmia Abdomen Exam: Positive: Normal bowel sounds, Soft, Negative: Tenderness, Hepatospenomegaly Extremity Exam: Positive: Normal pulses, Negative: Clubbing, Cyanosis, Edema Assessment /Plan Problems (1) Delirium Status: Resolved Problem Text: possibly due to severe anemia and chf exacerbation with hypoxia. now resolved will take off sitter. (2) Acute on chronic congestive heart failure Status: Acute Problem Text: will continue with lasix and fluid restriction (3) Anemia Status: Acute Problem Text: acute on chronic etiology not yet determined. no bleeding at present has iron deficiency so on supplementation had egd and colonoscopy in march 2017 no no bleeding source identified thought at that time to be due to oral anticoagulants since then has been taken off oral anticoagulant. partly has anemia of chronic disease due to ckd with iron deficiency however also has m spike in electrophoresis and in serum immunofixation has igg kappa so may also have plasma cell disorder. will refer patient to hematology on discharge. (4) Chronic respiratory failure with hypoxia Status: Chronic (5) Chronic atrial fibrillation Status: Chronic (6) Primary biliary cirrhosis Status: Chronic (7) Hypothyroidism Status: Chronic (8) HTN (hypertension) Status: Chronic (9) Anxiety Status: Chronic (10) Chronic kidney disease, stage 3 Status: Chronic (11) Pulmonary hypertension Status: Chronic (12) Dysthymia Status: Chronic (13) Asymptomatic bacteriuria Status: Acute Problem Text: pateint had only 1 wbc in urine though culture grew e coli only 2000 cfu. so does not have UTI. Plan/VTE VTE Prophylaxis Ordered?: Yes VS, I&O, 24H, Fishbone Vital Signs/I&O Vital Signs Date Time Temp Pulse Resp B/P (MAP) Pulse Ox O2 Delivery O2 Flow Rate FiO2 07/10/17 09:50 98.3 83 20 150/66 (94) 97 Nasal Cannula 3.0 I&O- Last 24 Hours up to 6 AM 07/10/17 05:59 Intake Total 840 ml Output Total 1700 ml Balance -860 ml Laboratory Data 24H LABS Laboratory Tests 2 07/10/17 05:21: White Blood Count 4.6, Red Blood Count 3.44L, Hemoglobin 8.4L, Hematocrit 27.4L , Mean Corpuscular Volume 79.8L, Mean Corpuscular Hemoglobin 24.5L, Mean Corpuscular Hemoglobin Concent 30.7L, Red Cell Distribution Width 16.8H, Platelet Count 132L, Neutrophils (%) (Auto) 63.3, Lymphocytes (%) (Auto) 13.7L, Monocytes (%) (Auto) 11.7H, Eosinophils (%) (Auto) 5.8H, Basophils (%) (Auto) 0.8, Neutrophils # (Auto) 2.9, Lymphocytes # (Auto) 0.6L, Monocytes # (Auto) 0.5 , Eosinophils # (Auto) 0.3, Basophils # (Auto) 0.0, Large Unclassified Cells % 4.7H, Large Unclassified Cells # 0.2, Anion Gap 8, Glomerular Filtration Rate 40.0, Blood Urea Nitrogen 20H, Creatinine 1.33H, Sodium Level 144, Potassium Level 3.5, Chloride Level 106, Carbon Dioxide Level 30, Calcium Level 9.5 CBC/BMP Laboratory Tests 07/10/17 05:21 Red Blood Count 3.44 L, Mean Corpuscular Volume 79.8 L, Mean Corpuscular Hemoglobin 24.5 L, Mean Corpuscular Hemoglobin Concent 30.7 L, Red Cell Distribution Width 16.8 H, Neutrophils (%) (Auto) 63.3, Lymphocytes (%) (Auto) 13.7 L, Monocytes (%) (Auto) 11.7 H, Eosinophils (%) (Auto) 5.8 H, Basophils (% ) (Auto) 0.8, Neutrophils # (Auto) 2.9, Lymphocytes # (Auto) 0.6 L, Monocytes # (Auto) 0.5, Eosinophils # (Auto) 0.3, Basophils # (Auto) 0.0, Calcium Level 9.5 Microbiology Microbiology 07/06/17 Blood Culture - Final, Complete Streptococcus Salivarius 07/05/17 Blood Culture - Preliminary, Resulted No Growth after 72 hours. All specime... 07/07/17 Urine Culture - Final, Complete Escherichia Coli MARIE ANDERSON MD Jul 10, 2017 11:39
[2017-07-10] MEDS: FERROUS GLUCONATE 324 MG TAB PO SCH ×2 (13:47→21:17)
[2017-07-10] MEDS: FUROSEMIDE 40 MG/4 ML VIAL (J1940) IV SCH (13:47)
[2017-07-10 14:00] VITALS: BP 147/68
[2017-07-10 20:00] VITALS: BP 128/59
[2017-07-10 22:00] VITALS: BP 128/59
[2017-07-11] MEDS: ACETAMINOPHEN TAB 650MG DOSE (2X325MG) PO PRN ×2 (00:27→23:06)
[2017-07-11 06:00] VITALS: BP 119/68
[2017-07-11] MEDS ORDERED: FUROSEMIDE 40 MG/4 ML VIAL (J1940) IV SCH (06:00)
[2017-07-11] MEDS: SLF 3 ML SYR IV SCH ×3 (06:00→21:47)
[2017-07-11] MEDS: LevoFLOXacin 250 MG TABLET PO SCH (06:30)
[2017-07-11] MEDS: LEVOTHYROXINE 88MCG TABLET (0.088 MG) PO SCH (06:30)
[2017-07-11] MEDS: SYMBICORT 160/4.5MCG INHALER 6GM INH SCH ×2 (07:24→22:00)
[2017-07-11] MEDS: ALBUTEROL SULFATE 2.5 MG/0.5 ML INH NEB SOLN NEB SCH ×3 (08:00→23:32)
[2017-07-11] MEDS: URSODIOL 300 MG CAP PO SCH ×2 (08:21→21:00)
[2017-07-11] MEDS: SENOKOT S TAB PO SCH ×2 (08:21→21:00)
[2017-07-11] MEDS: VITAMIN D 1,000 INTERNATIONAL UNITS TABLET PO SCH (08:22)
[2017-07-11] MEDS: FERROUS GLUCONATE 324 MG TAB PO SCH ×2 (08:22→21:00)
[2017-07-11] MEDS: amLODIPine 5 MG TAB PO SCH ×2 (08:22→21:00)
[2017-07-11] MEDS: QUEtiapine FUMARATE 25 MG TAB PO SCH ×3 (08:22→21:00)
[2017-07-11] MEDS: PANTOPRAZOLE 40MG TAB (PROTONIX) PO SCH (08:22)
[2017-07-11] MEDS: ATENOLOL 50 MG TAB PO SCH (08:22)
[2017-07-11] MEDS: MIRTAZAPINE 15 MG TAB PO SCH (08:22)
[2017-07-11] MEDS: NYSTATIN 100,000 UNITS/GM TOPICAL PWD 15 GM TOP SCH ×2 (08:44→21:00)
[2017-07-11 09:24] LABS: TOTAL PROTEIN 6.1 GM/DL (6.4-8.2)
[2017-07-11 10:20] LABS: BASO % 0.9 % (0.0-1.0); EOS # 0.3 K/mm3 (0.0-0.50); EOS % 5.8 % (0.0-3.0); LARGE UNSTAINED CELL # 0.1 K/mm3 (0.0-0.4); LYMPH # 0.7 K/mm3 (1.5-4.5); LYMPH % 12.7 % (24.0-44.0); MEAN CORPUSCULAR HEMOGLOBIN 25.1 pg (27.0-33.0); MEAN CORPUSCULAR HGB CONC 31.6 g/dl (32.0-36.5); MEAN CORPUSCULAR VOLUME 79.5 fl (80.0-96.0); MONO # 0.6 K/mm3 (0.0-0.8); MONO % 12.2 % (0.0-5.0); NEUTROPHILS # 2.9 K/mm3 (1.8-7.7); NEUTROPHILS % 65.5 % (36.0-66.0); PLATELET COUNT, AUTOMATED 121 k/mm3 (150-450); RED CELL DISTRIBUTION WIDTH 16.6 % (11.5-14.5); WHITE BLOOD COUNT 4.5 K/mm3 (4.0-10.0)
[2017-07-11 10:23] LABS: ADD MORPHOLOGY? YES
[2017-07-11 10:44] LABS: ANISOCYTOSIS 2+
[2017-07-11 10:45] LABS: HYPOCHROMASIA 1+
[2017-07-11 10:49] LABS: CREATININE FOR GFR 1.43 MG/DL (0.55-1.02); GLOMERULAR FILTRATION RATE 36.8 (>32); POTASSIUM SERUM 3.5 MEQ/L (3.5-5.1)
--- NOTE | 2017-07-11 11:04 | IPNPDOC ---
Subjective Date Seen The patient was seen on 07/11/17. Subjective Chief Complaint/HPI The patient is a 89-year-old female admitted with a reason for visit of Acute On Chronic Chf. Events since last encounter patient continues to cough , does not bring up any phlegm , no fever or chills, no chest pain or sob , her oxygen requirement is at baseline. no abdominal pain , no nausea or vomiting or diarrhea. Objective Physical Examination General Exam: Positive: Alert, Cooperative, No Acute Distress Eye Exam: Positive: PERRLA, Conjunctiva & lids normal, EOMI, Negative: Sclera icteric ENT Exam: Positive: Atraumatic, Mucous membr. moist/pink, Pharynx Normal Neck Exam: Positive: Supple, Negative: JVD, thyromegaly Chest Exam: Positive: Clear to auscultation, Normal air movement Heart Exam: Positive: Rate Normal, Regular Rhythm, Normal S1, Normal S2, Negative: Murmurs, Rubs Telemetry: Positive: No significant arrhythmia Abdomen Exam: Positive: Normal bowel sounds, Soft, Negative: Tenderness, Hepatospenomegaly Extremity Exam: Positive: Normal pulses, Negative: Clubbing, Cyanosis, Edema Assessment /Plan Problems (1) Acute on chronic congestive heart failure Status: Acute Problem Text: will continue with lasix and fluid restriction (2) Anemia Status: Acute Problem Text: acute on chronic etiology not yet determined. no bleeding at present has iron deficiency so on supplementation had egd and colonoscopy in march 2017 no no bleeding source identified thought at that time to be due to oral anticoagulants since then has been taken off oral anticoagulant. partly has anemia of chronic disease due to ckd with iron deficiency however also has m spike in electrophoresis and in serum immunofixation has igg kappa so may also have plasma cell disorder. will refer patient to hematology on discharge. (3) Delirium Status: Resolved Problem Text: possibly due to severe anemia and chf exacerbation with hypoxia. now resolved will take off sitter. (4) Chronic respiratory failure with hypoxia Status: Chronic (5) Chronic atrial fibrillation Status: Chronic (6) Primary biliary cirrhosis Status: Chronic (7) Hypothyroidism Status: Chronic (8) HTN (hypertension) Status: Chronic (9) Anxiety Status: Chronic (10) Chronic kidney disease, stage 3 Status: Chronic (11) Pulmonary hypertension Status: Chronic (12) Dysthymia Status: Chronic (13) Asymptomatic bacteriuria Status: Acute Problem Text: pateint had only 1 wbc in urine though culture grew e coli only 2000 cfu. so does not have UTI. (14) Gait instability Status: Chronic Problem Text: continue PT. Plan/VTE VTE Prophylaxis Ordered?: Yes VS, I&O, 24H, Fishbone Vital Signs/I&O Vital Signs Date Time Temp Pulse Resp B/P (MAP) Pulse Ox O2 Delivery O2 Flow Rate FiO2 07/11/17 08:22 74 119/68 07/11/17 06:00 97.6 18 97 Nasal Cannula 3.0 I&O- Last 24 Hours up to 6 AM 07/11/17 06:00 Intake Total 1180 ml Output Total 300 ml Balance 880 ml Laboratory Data 24H LABS Laboratory Tests 2 07/11/17 08:44: Total Protein (PEP) 6.1L 07/11/17 10:05: White Blood Count 4.5, Red Blood Count 3.79L, Hemoglobin 9.5L, Hematocrit 30.1L , Mean Corpuscular Volume 79.5L, Mean Corpuscular Hemoglobin 25.1L, Mean Corpuscular Hemoglobin Concent 31.6L, Red Cell Distribution Width 16.6H, Platelet Count 121L, Neutrophils (%) (Auto) 65.5, Lymphocytes (%) (Auto) 12.7L, Monocytes (%) (Auto) 12.2H, Eosinophils (%) (Auto) 5.8H, Basophils (%) (Auto) 0.9, Neutrophils # (Auto) 2.9, Lymphocytes # (Auto) 0.7L, Monocytes # (Auto) 0.6 , Eosinophils # (Auto) 0.3, Basophils # (Auto) 0.0, Large Unclassified Cells % 3.0, Large Unclassified Cells # 0.1, Platelet Estimate NORMAL, Hypochromasia 1+ , Anisocytosis 2+, Anion Gap 9, Glomerular Filtration Rate 36.8, Blood Urea Nitrogen 20H, Creatinine 1.43H, Sodium Level 143, Potassium Level 3.5, Chloride Level 105, Carbon Dioxide Level 29, Calcium Level 9.0 CBC/BMP Laboratory Tests 07/11/17 10:05 Red Blood Count 3.79 L, Mean Corpuscular Volume 79.5 L, Mean Corpuscular Hemoglobin 25.1 L, Mean Corpuscular Hemoglobin Concent 31.6 L, Red Cell Distribution Width 16.6 H, Neutrophils (%) (Auto) 65.5, Lymphocytes (%) (Auto) 12.7 L, Monocytes (%) (Auto) 12.2 H, Eosinophils (%) (Auto) 5.8 H, Basophils (% ) (Auto) 0.9, Neutrophils # (Auto) 2.9, Lymphocytes # (Auto) 0.7 L, Monocytes # (Auto) 0.6, Eosinophils # (Auto) 0.3, Basophils # (Auto) 0.0, Calcium Level 9.0 Microbiology Microbiology 07/06/17 Blood Culture - Final, Complete Streptococcus Salivarius 07/05/17 Blood Culture - Final, Complete NO GROWTH AFTER 5 DAYS 07/07/17 Urine Culture - Final, Complete Escherichia Coli MARIE ANDERSON MD Jul 11, 2017 11:04
[2017-07-11 12:21] LABS: ALBUMIN 2.96 GM/DL (3.29-5.55); ALBUMIN % 48.6 % (55.8-66.1); GAMMA GLOBULIN % 22.6 % (11.1-18.8)
[2017-07-11] MEDS ORDERED: diphenhydrAMINE CREAM 30GM TOP PRN (13:30)
[2017-07-11 14:00] VITALS: BP_SYST 128; BP_SYST 129; BP_DIAS 60; BP_DIAS 70
[2017-07-11] MEDS: FUROSEMIDE 100 MG/10 ML VIAL (J1940) IV SCH (16:19)
[2017-07-11 22:00] VITALS: BP 157/68
[2017-07-12] MEDS: LevoFLOXacin 250 MG TABLET PO SCH (05:23)
[2017-07-12] MEDS: LEVOTHYROXINE 88MCG TABLET (0.088 MG) PO SCH (05:23)
[2017-07-12] MEDS: SLF 3 ML SYR IV SCH (05:23)
[2017-07-12 06:00] VITALS: BP 135/63
[2017-07-12 06:02] LABS: MEAN CORPUSCULAR HEMOGLOBIN 25.3 pg (27.0-33.0); MEAN CORPUSCULAR HGB CONC 31.4 g/dl (32.0-36.5); MEAN CORPUSCULAR VOLUME 80.7 fl (80.0-96.0); RED CELL DISTRIBUTION WIDTH 16.4 % (11.5-14.5); WHITE BLOOD COUNT 4.5 K/mm3 (4.0-10.0)
[2017-07-12 06:26] LABS: CALCIUM LEVEL 8.9 MG/DL (8.8-10.2); CREATININE FOR GFR 1.44 MG/DL (0.55-1.02); GLOMERULAR FILTRATION RATE 36.5 (>32); POTASSIUM SERUM 3.2 MEQ/L (3.5-5.1)
[2017-07-12] MEDS ORDERED: POTASSIUM CHLORIDE 10 MEQ SR TABLET PO ONE (06:45)
[2017-07-12] MEDS ORDERED: FERR32TA PO (06:59)
[2017-07-12] MEDS ORDERED: LASI40TA PO (06:59)
[2017-07-12] MEDS ORDERED: SENN1TAB2 PO (06:59)
[2017-07-12] MEDS ORDERED: DIPHCR TOP (06:59)
[2017-07-12] MEDS: SYMBICORT 160/4.5MCG INHALER 6GM INH SCH (08:18)
[2017-07-12] MEDS: amLODIPine 5 MG TAB PO SCH (08:19)
[2017-07-12] MEDS: URSODIOL 300 MG CAP PO SCH (08:20)
[2017-07-12] MEDS: PANTOPRAZOLE 40MG TAB (PROTONIX) PO SCH (08:20)
[2017-07-12] MEDS: FERROUS GLUCONATE 324 MG TAB PO SCH (08:20)
[2017-07-12] MEDS: QUEtiapine FUMARATE 25 MG TAB PO SCH (08:20)
[2017-07-12] MEDS: VITAMIN D 1,000 INTERNATIONAL UNITS TABLET PO SCH (08:20)
[2017-07-12] MEDS: MIRTAZAPINE 15 MG TAB PO SCH (08:20)
[2017-07-12 08:21] VITALS: BP 138/52
[2017-07-12] MEDS: NYSTATIN 100,000 UNITS/GM TOPICAL PWD 15 GM TOP SCH (08:21)
[2017-07-12] MEDS: ATENOLOL 50 MG TAB PO SCH (08:21)
[2017-07-12] MEDS: SENOKOT S TAB PO SCH (08:21)
[2017-07-12] MEDS: FUROSEMIDE 100 MG/10 ML VIAL (J1940) IV SCH (09:58)
[2017-07-13 00:06] LABS: FREE KAPPA LIGHT CHAINS SERUM 45.3 mg/L (3.3-19.4); FREE LAMBDA LIGHT CHAINS SERUM 44.4 mg/L (5.7-26.3); KAPPA/LAMBDA RATIO SERUM 1.02 (0.26-1.65)
--- NOTE | 2017-07-13 23:46 | DSES ---
DATE OF ADMISSION: 07/05/2017 DATE OF DISCHARGE: 07/12/2017 PRIMARY CARE PROVIDER: GUIDO Amaro. DISCHARGE DIAGNOSES: 1. Acute on chronic diastolic congestive failure. 2. Acute on chronic anemia, received 3 units of packed red blood cells (PRBC). 3. Cor pulmonale. 4. Severe pulmonary hypertension. 5. Atrial fibrillation, rate controlled. 6. Acute delirium. 7. Chronic respiratory failure with hypoxia. 8. Primary biliary cirrhosis. 9. Hypothyroidism. 10. Hypertension. 11. Anxiety. 12. Chronic kidney disease (CKD) stage III. 13. Dysthymia. 14. Asymptomatic bacteruria. 15. Gait instability. DISCHARGE MEDICATIONS: - ferrous gluconate 324 mg one tablet by mouth twice a day - Lasix 40 mg by mouth twice a day - Senna Plus one tablet by mouth twice a day - diphenhydramine cream topically as needed four times a day - acetaminophen 650 mg by mouth every 6 hours as needed for pain - amlodipine 5 mg by mouth twice a day - aspirin 81 mg by mouth daily - atenolol 50 mg by mouth daily - Symbicort 160/4.5 two puffs inhalation twice a day - cholecalciferol 1000 units by mouth daily - desloratadine 5 mg daily as needed for allergies - Ensure liquid one such by mouth daily - Synthroid 88 mcg by mouth daily - mirtazapine 15 mg by mouth daily - nystatin cream topically as needed for rash - pantoprazole 40 mg by mouth daily - Seroquel 25 mg by mouth three times a day - tramadol 50 mg by mouth every 8 hours as needed for pain - Ursodiol 300 mg by mouth twice a day HOSPITAL COURSE: This is an 89-year-old female who was sent from primary medical doctor's (PMD) office for lower extremity swelling. Patient was found to have acute on chronic diastolic congestive heart failure and acute on chronic right-sided heart failure and cor pulmonale. Patient has been recently started on home oxygen by primary care provider. Patient was also noted to be severely anemic with hemoglobin of 6.1 and received 3 units of PRBC in the hospital. The etiology of the anemia has not yet been found. Patient did have esophagogastroduodenoscopy (EGD) and colonoscopy done in March of 2017, which did not reveal any source of bleeding. At that time, it was felt that it could be related to chronic anticoagulation for atrial fibrillation, so her anticoagulants were stopped. However, patient again noted to be severely anemic in May 2017, as well as in June 2017 in spite of being off anticoagulants. Patient had one stool occult blood positive from February of this year; however, after that patient did not have any occult blood tests for her. Patient also had serum electrophoresis, serum immunofixation done. The serum electrophoresis does show some monoclonal (M) spikes and serum immunofixation showed abnormal shape of the gamma region. Earlier in 2008, patient also had immunofixation studies which showed high IgM kappa levels. Patient did have immunoelectrophoresis also done prior in 2008 and 2009, which did not show atypical bands to suggest proteins. Patient had free light chains done this admission, which had normal ratio. Unfortunately, we have not been able to determine the cause of her recurrent anemia. Patient should ideally be referred again to [facility] for possible capsular endoscopy and patient should also be referred to [facility] for evaluation for anemia. Patient was found to have iron deficiency, so was started on iron supplementation. After 3 units of blood transfusion, patient's hemoglobin and hematocrit remained stable throughout the hospitalization. At present, patient does not have any complaints. Functionally she is close to her baseline, has been cleared by physical therapy. Vital signs are stable. Patient is going to be discharged back to [facility] to followup with her primary care provider. PHYSICAL EXAMINATION: VITAL SIGNS: Temperature 97.8, pulse 76, respiratory rate 18, blood pressure 132/52, pulse oximetry 97% with 3 liters nasal cannula. GENERAL: Patient awake, alert, oriented times three, sitting up in chair in no acute distress. HEENT: Normocephalic, atraumatic. Moist mucous membranes. Anicteric eyes. CHEST: Clear to auscultation. CARDIOVASCULAR: S1, S2 regular. There is a systolic murmur present. ABDOMEN: Soft, nontender, bowel sounds present. EXTREMITIES: Trace edema, chronic venous stasis changes bilaterally. LABORATORY DATA: WBC 4.5, hemoglobin 9.9, platelets 108. Sodium 142, potassium 3.2, chloride 104, bicarbonate 30, BUN 22, creatinine 1.44, glucose 80, calcium 8.9. Serum protein electrophoresis shows atypical shape of the gamma region, unable to definitely determine the presence of atypical bands. Suggest followup in 6-9 months. Serum immunotyping shows abnormal shape in the gamma region, suggested quantitative analysis. Free kappa and lambda ratio 1.02. DISPOSITION: Patient is discharged to [facility] in stable condition. DISCHARGE INSTRUCTIONS: Patient to followup with primary care provider in 1 week. Patient is suggested referral to hematology and gastroenterology for further evaluation of recurrent anemia. Diet as tolerated. Fluid restriction 1.8 liters. Activity as tolerated.
== END 2017-07-12 10:54 | disposition home or self-care (01) | DRG 291 ==
LOC: M ED 19:41 → EDSEX 19:41 → EDBD 19:41 → M ED INP 23:00 → M PCU 07-06 17:39 → M MSPAV 07-10 09:45
PROVIDERS: ADMIT Internal Medicine; ATTEND Internal Medicine Nephrology
PROC: 30233N1 Transfusion of Nonautologous Red Blood Cells into Peripheral Vein, Percutaneous Approach (ICD-10-PCS; principal; 2017-07-06)
DX: I13.0 Hypertensive heart and chronic kidney disease with heart failure and stage 1 through stage 4 chronic kidney disease, or unspecified chronic kidney disease (principal); I50.33 Acute on chronic diastolic (congestive) heart failure; J96.11 Chronic respiratory failure with hypoxia; M19.90 Unspecified osteoarthritis, unspecified site; N18.3 Chronic kidney disease, stage 3 (moderate); I48.2 Chronic atrial fibrillation; E03.9 Hypothyroidism, unspecified; K74.3 Primary biliary cirrhosis; F41.1 Generalized anxiety disorder; R41.0 Disorientation, unspecified; I27.2 Other secondary pulmonary hypertension; D63.1 Anemia in chronic kidney disease; R26.81 Unsteadiness on feet; F34.1 Dysthymic disorder; Z99.81 Dependence on supplemental oxygen; Z88.0 Allergy status to penicillin; Z88.2 Allergy status to sulfonamides; Z88.8 Allergy status to other drugs, medicaments and biological substances; Z79.82 Long term (current) use of aspirin; Z79.899 Other long term (current) drug therapy

== ENCOUNTER → 2017-08-08 | Outpatient (REF) | payer MEDICARE ==
[~2017-08-08] MED LIST changes: +ASPI81TA21 PO; +DIPHCR TOP; +ENSULIQ10 PO; +FERR32TA PO; +LASI40TA PO; +MIRT15TA3 PO; +NYST10CR TOP; +SENN1TAB2 PO
[2017-08-08 14:58] LABS: FOLATE 7.2 NG/ML (>5.4)
[2017-08-08 15:10] LABS: ALBUMIN 3.1 GM/DL (3.2-5.2); ALBUMIN/GLOBULIN RATIO 0.82 (1.00-1.93); BILIRUBIN,TOTAL 0.4 MG/DL (0.2-1.0); CALCIUM LEVEL 9.6 MG/DL (8.8-10.2); CREATININE FOR GFR 1.49 MG/DL (0.55-1.02); GLOMERULAR FILTRATION RATE 35.1 (>32); POTASSIUM SERUM 4.2 MEQ/L (3.5-5.1); TOTAL PROTEIN 6.9 GM/DL (6.4-8.2)
[2017-08-08 17:35] LABS: MEAN CORPUSCULAR HEMOGLOBIN 28.3 pg (27.0-33.0); MEAN CORPUSCULAR HGB CONC 31.4 g/dl (32.0-36.5); MEAN CORPUSCULAR VOLUME 90.4 fl (80.0-96.0); RETIC HEMOGLOBIN CONTENT CHr 30.3 PG (24-36); RETICULOCYTE % 3.5 % (0.5-1.5); WHITE BLOOD COUNT 6.3 K/mm3 (4.0-10.0)
== END ==
LOC: M SFHCPLAZ 10:52
PROVIDERS: ATTEND Nurse Practitioner Adult Health
DX: D64.9 Anemia, unspecified (principal); I50.32 Chronic diastolic (congestive) heart failure; E03.9 Hypothyroidism, unspecified